=== PATIENT | female | born 1945 | race Caucasian/White ===

== ENCOUNTER 2019-06-04 20:24 | Emergency (ER) | payer MEDICARE, OTHER, SELFPAY ==
[2019-06-04 20:28] VITALS: BP 144/63; PULSE 82; PULSE 84; RESP 14; TEMP 36.6; O2SAT 91
--- NOTE | 2019-06-04 20:45 | ED.NAVMDI ---
HPI - Nausea/Vomiting/Diarrhea General Chief complaint: Unspecified Stated complaint: diarrhea Time Seen by Provider: 06/04/19 20:36 Source: patient and RN notes reviewed Mode of arrival: EMS Limitations: no limitations History of Present Illness HPI Narrative: Pt is a 73 y/o female who presents to the ED via EMS with c/o diarrhea and foul smelling stool starting earlier today. She notes that she developed diarrhea earlier this morning, and states that she noticed her stools have had an unusually foul smell. Pt notes that her stools have been watery. She states that she has scheduled an appointment with her PCP for tomorrow to discuss her symptoms. Pt currently denies any fever, chills, ABD pain, nausea, vomiting, or other symptoms. MD elicited complaint: diarrhea and other (Foul smelling stool) Onset (ago): day(s) (1) Description of diarrhea: watery Associated nausea: No Associated abdominal pain: No Associated symptoms: denies other symptoms Related Data Allergies Allergy/AdvReac Type Severity Reaction Status Date / Time acetaminophen Allergy Unknown Unknown Verified 06/04/19 20:38 levofloxacin Allergy Unknown Unknown Verified 06/04/19 20:38 oxycodone Allergy Unknown Unknown Verified 06/04/19 20:38 Penicillins Allergy Unknown Unknown Verified 06/04/19 20:38 Review of Systems Review of Systems: All systems reviewed & are unremarkable except as noted in HPI and below Constitutional: Constitutional: Denies chills and Denies fever(s) ENT: Denies dizziness, Denies ear discharge, Denies headache(s), Denies lip swelling, Denies epistaxis, Denies nasal congestion, Denies neck pain, Denies throat swelling and Denies tongue swelling Cardiovascular: Cardiovascular: Denies chest pain Respiratory: Respiratory: Denies chest congestion, Denies cough, Denies hemoptysis, Denies dyspnea and Denies dyspnea on exertion Gastrointestinal: Gastrointestinal: Denies abdominal pain, Reports diarrhea, Denies nausea, Denies vomiting and Reports other (foul smelling stool) PMFSH Past Medical History Medical History Anemia Dementia Depression Diabetes GI bleed Peripheral neuropathy Renal disease Sleep apnea Surgical History Surgical History No significant past surgical history Social History Social History Smoking status: Smoker, status unknown Substance use type: marijuana Gender identity (if verbalized by the patient): Female Exam Const: General: cooperative, healthy appearing, comfortable, no acute distress, well developed, alert and awake; No confusion Orientation/consciousness: oriented to person, oriented to place, oriented to time, patient oriented x3 and No confusion Limitations: no limitations HENMT: Head: normal to inspection, normocephalic and atraumatic Neck: Neck: normal visual inspection Chest: Chest palpation & inspection: normal inspection of the chest Resp: Effort & Inspection: normal respiratory effort, able to speak in complete sentences, no respiratory distress and not tachypneic Auscultation: clear to auscultation bilaterally, no crackles, no rales, no rhonchi and no wheezes Cardio: Rate: regular rate Rhythm: regular rhythm GI: Inspection: normal to inspection GI Palp: No abdominal tenderness, Yes Soft to palpation, No Tenderness to palpation present (GI), No Guarding due to palpation present (GI), No Rigid due to palpation and No Rebound tenderness present Auscultation: normal bowel sounds : General: Yes no CVA tenderness Back/Spine/Pelvis: Back: no CVA tenderness Skin: General skin exam: normal color, no rashes or lesions noted, elasticity normal and turgor normal Neuro: General: oriented to person, oriented to place, oriented to time, patient oriented x3, tone normal, moves all extremities, Normal light touch and pain sensation, no meningeal signs, no fo
[2019-06-04] MEDS: SODIUM CHLORIDE 0.9% IV 1,000 ML 999 ML IV CONT (20:55)
[2019-06-04 21:11] LABS: Basophils Percent Auto 0.1 % (0.2-1.2); Eosinophils Absolute Auto 0.1 K/mm3 (0-0.3); Eosinophils Percent Auto 1.2 % (0-4.4); Hematocrit 31.1 % (37.0-47.0); Hemoglobin 9.8 g/dL (12.0-15.0); Immature Granulocyte Absolute 0.02 K/mm3 (0.00-0.031); Immature Granulocyte Percent A 0.3 % (0-0.5); Lymphocytes Absolute Auto 3.19 K/mm3 (0.9-3.2); Lymphocytes Percent Auto 46.6 % (18.3-44.2); Mean Corpuscular HGB Conc 31.5 g/dl (32-36); Mean Corpuscular Hemoglobin 27.5 pg (26-34); Mean Corpuscular Volume 87.4 fl (80-100); Mean Platelet Volume 9.9 fl (7.4-10.4); Monocytes Absolute Auto 0.6 K/mm3 (0.1-0.6); Monocytes Percent Auto 9.2 % (2.6-8.5); Neutrophils Absolute Auto 2.9 K/mm3 (1.3-6.7); Neutrophils Percent Auto 42.6 % (45.5-73.1); Platelet Count Result 224 k/mm3 (150-375); Red Blood Count 3.56 M/mm3 (4.2-5.4); Red Cell Distribution Width 14.6 % (11.5-14.5); White Blood Count 6.8 K/mm3 (4.5-10.0)
[2019-06-04 21:27] LABS: Alanine Aminotransferase 11 U/L (4-35); Albumin Level 3.8 g/dL (3.5-5.1); Alkaline Phosphatase 95 U/L (38-126); Aspartate Amino Transferase 19 U/L (14-36); Bilirubin,Total 0.2 mg/dL (0.2-1.3); Blood Urea Nitrogen 24 mg/dL (7-17); Calcium 8.8 mg/dL (8.4-10.2); Carbon Dioxide 22 mmol/L (22-30); Chloride 106 mmol/L (98-107); Estimated CRCL calculation 34 ml/min; Estimated Glomerular Filt Rate 40; Glucose 49 mg/dL (65-105); Potassium 4.4 mmol/L (3.4-5.0); Sodium 138 mmol/L (137-145)
[2019-06-04] MEDS: DEXTROSE 50% 25 GM/50 ML SYRINGE IV PUSH (21:33)
--- NOTE | 2019-06-04 21:47 | PC.NURSE ---
lab called and stated that pts blood glucose was 49. Per Dr. Leon give D50 via IV and a turkey sandwich. Will continue to monitor
[2019-06-04 23:06] VITALS: BP 142/95; PULSE 89; RESP 16; O2SAT 100
[2019-06-04 23:06] LABS: Glucose Point of Care 60 (65-105)
--- NOTE | 2019-06-04 23:09 | PC.NURSE ---
report taken from leidy manzo at this time.
[2019-06-04 23:37] VITALS: BP 142/85; PULSE 88; RESP 16; O2SAT 100
[2019-06-04 23:39] LABS: Glucose Point of Care 212 (65-105)
[2019-06-05 01:00] VITALS: BP 137/88; PULSE 80; RESP 17; TEMP 36.2; O2SAT 98
--- NOTE | 2019-06-05 01:06 | PC.NURSE ---
Called [facility] at [phone] to transport patient. ETA = [phone] Johnson here at [phone]
[2019-06-05 08:14] LABS: Glucose Point of Care 186 (65-105)
== END 2019-06-05 01:00 | disposition home or self-care (01) ==
PROVIDERS: Emergency Provider Emergency Medicine
DX: K52.9 Noninfective gastroenteritis and colitis, unspecified (principal); E11.649 Type 2 diabetes mellitus with hypoglycemia without coma; F03.90 Unspecified dementia, unspecified severity, without behavioral disturbance, psychotic disturbance, mood disturbance, and anxiety; E11.42 Type 2 diabetes mellitus with diabetic polyneuropathy; G47.30 Sleep apnea, unspecified; N28.9 Disorder of kidney and ureter, unspecified
CPT/HCPCS: 36415; 80053; 82948; 85025; 96361; 96374; 99284; J7030

== ENCOUNTER 2019-09-29 14:38 | Inpatient (IN) | payer MEDICARE, OTHER, SELFPAY ==
--- NOTE | ~2019-09-29 | CT_ITS ---
EXAMINATION: CT brain wo con DATE: 09/29/2019 14:56 INDICATION: Confusion. TECHNIQUE: Computed tomography (CT) of the head was performed without intravenous contrast. The mA wa s adjusted according to patient size. Iterative reconstruction technique was employed. The dose-lengt h product was 605.33 mGy-cm. COMPARISON: None FINDINGS: There are scattered areas of low attenuation in the cerebral white matter. There are old in farcts in right parietal and occipital lobes. There is no intracranial hemorrhage, acute infarction, or abnormal intracranial mass lesion. The lateral and third ventricles are dilated out of proportion to the size of the sulci. There is mucosal thickening in right sphenoid sinus with thickening and scl erosis of the sinus ramon, consistent with chronic sinusitis. The mastoid air cells are normal. There are likely changes of ocular lens replacement surgeries. IMPRESSION: 1. Old infarcts in the right parietal and occipital lobes. 2. Extensive nonspecific cerebral white matter disease, which likely represents chronic small vessel ischemic disease. 3. Dilated lateral and third ventricles out of proportion to the size of the sulci. Correlate clinica lly for normal pressure hydrocephalus. 4. Chronic sinusitis. Reviewed, dictated and finalized at location A. IMPRESSION: 1. Old infarcts in the right parietal and occipital lobes. 2. Extensive nonspecific cerebral white matter disease, which likely represents chronic small vessel ischemic disease. 3. Dilated lateral and third ventricles out of proportion to the size of the sharma lci. Correlate clinically for normal pressure hydrocephalus. 4. Chronic sinusitis.
--- NOTE | ~2019-09-29 | XR_ITS ---
EXAMINATION: XR hand LT min 3V DATE: 09/29/2019 15:06 INDICATION: Left hand injury. TECHNIQUE: 3 views of left hand were obtained. COMPARISON: None. FINDINGS: Bone alignment is normal. No fracture. There is mild osteoarthritis of first carpometacarpa l joint, first and second metacarpophalangeal joints, and most of the interphalangeal joints. There i s severe osteoarthritis of second, third, and fourth distal interphalangeal joints. IMPRESSION: 1. Polyarticular osteoarthritis. Reviewed, dictated and finalized at location A.
--- NOTE | ~2019-09-29 | XR_ITS ---
EXAMINATION: XR chest 1V portable DATE: 09/29/2019 15:06 INDICATION: Altered mental status. TECHNIQUE: A single frontal view of the chest was obtained. COMPARISON: None. FINDINGS: The chest demonstrates clear lungs without pneumonia, pleural effusion, or pneumothorax. Th e heart size is normal. IMPRESSION: 1. No acute cardiopulmonary disease. Reviewed, dictated and finalized at location A.
--- NOTE | 2019-09-29 14:43 | ECG_ITS ---
Measurements Intervals [place] Rate: 67 P: 32 DE: 167 QRS: -25 QRSD: 85 T: 90 QT: 401 QTc: 425 Interpretive Statements SINUS RHYTHM LOW QRS VOLTAGE IN PRECORDIAL LEADS BORDERLINE T WAVE ABNORMALITY- HIGH LATERAL LEADS BASELINE ARTIFACT- I, II, III, AVL, AVF, V2 BORDERLINE ECG Electronically Signed On 09-29-2019 16:42:33 CDT by Denton Franks D.O.
--- NOTE | 2019-09-29 14:43 | ED.GENADULT ---
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 She appeared more confused than baseline. It's uncertain how long ago she fellor how she fell. She cannot provide additional history. She does not recall the incident. She denies any pain. Related Data Allergies Allergy/AdvReac Type Severity Reaction Status Date / Time acetaminophen Allergy Unknown Unknown Verified 09/29/19 15:12 levofloxacin Allergy Unknown Unknown Verified 09/29/19 15:12 oxycodone Allergy Unknown Unknown Verified 09/29/19 15:12 Penicillins Allergy Unknown Unknown Verified 09/29/19 15:12 Review of Systems Review of Systems: ROS unobtainable: Yes unobtainable due to mental status PMFSH Past Medical History Medical History Anemia Dementia Depression Diabetes GI bleed Peripheral neuropathy Renal disease Sleep apnea Surgical History Surgical History No significant past surgical history Social History Social History Smoking status: Smoker, status unknown Substance use type: marijuana Gender identity (if verbalized by the patient): Female Exam Const: General: no acute distress and well developed Orientation/consciousness: oriented to person, oriented to place, oriented to time and patient oriented x3 HENMT: Head: normocephalic Ears: external ears normal General nose exam: Normal external nose present Eyes: General: appearance normal, both eyes and all related structures Conjunctivae: conjunctivae normal Neck: Neck: normal visual inspection and full ROM Chest: Chest palpation & inspection: normal inspection of the chest and no tenderness Resp: Effort & Inspection: normal respiratory effort Auscultation: clear to auscultation bilaterally Cardio: Rate: regular rate Rhythm: regular rhythm GI: GI Palp: No abdominal tenderness and Yes Soft to palpation Skin: General skin exam: normal color and turgor normal Neuro: General: oriented to person and oriented to place Cognition (Neuro): normal cognition Motor exam (neuro): 5/5 motor strength present throughout Other: disoriented to time Extrem: General: normal to inspection, full ROM and no pedal edema Left upper extremity: hand ecchymosis Psych: Appearance: grossly normal Mental Status: mental status grossly normal Affect: normal affect Course Consultations Consultation #1: Discussed with Radha, who agrees to admit to Dr. Subramanian. Date: 09/29/19 Time: 16:08 Vital Signs Vital signs: Vital Signs Temperature 37.0 C 09/29/19 14:58 Pulse Rate 69 09/29/19 14:58 Respiratory Rate 15 09/29/19 14:58 Blood Pressure 109/56 L 09/29/19 14:58 Pulse Oximetry 100 09/29/19 14:58 Temperature 37.0 C 09/29/19 14:58 Pulse Rate 78 09/29/19 18:54 Respiratory Rate 15 09/29/19 18:54 Blood Pressure 138/60 09/29/19 18:54 Pulse Oximetry 100 09/29/19 18:54 Medical Decision Making Vital Signs Vital Signs: Vital Signs Temperature 37.0 C 09/29/19 14:58 Pulse Rate 69 09/29/19 14:58 Respiratory Rate 15 09/29/19 14:58 Blood Pressure 109/56 L 09/29/19 14:58 Pulse Oximetry 100 09/29/19 14:58 Temperature 37.0 C 09/29/19 14:58 Pulse Rate 78 09/29/19 18:54 Respiratory Rate 15 09/29/19 18:54 Blood Pressure 138/60 09/29/19 18:54 Pulse Oximetry 100 09/29/19 18:54 Lab Data Result diagrams: 09/29/19 15:22 09/29/19 15:22 Labs: Lab Results 09/29/19 09/29/19 09/29/19 Range/Units 14:46 15:22 15:22 WBC 7.6 (4.5-10.0) K/mm3 RBC 3.39 L (4.2-5.4) M/mm3 Hgb 10.2 L (12.0-15.0) g/dL Hct 31.6 L (37.0-47.0) % MCV 93.2 (80-100) fl MCH 30.1 (26-34) pg MCHC
[2019-09-29 14:49] LABS: Glucose Point of Care 119 (65-105)
[2019-09-29 14:58] VITALS: BP 109/56; PULSE 69; RESP 15; TEMP 37; O2SAT 100
[2019-09-29 15:30] LABS: Basophils Percent Auto 0.1 % (0.2-1.2); Eosinophils Absolute Auto 0.1 K/mm3 (0-0.3); Eosinophils Percent Auto 0.7 % (0-4.4); Hematocrit 31.6 % (37.0-47.0); Hemoglobin 10.2 g/dL (12.0-15.0); Immature Granulocyte Absolute 0.04 K/mm3 (0.00-0.031); Immature Granulocyte Percent A 0.5 % (0-0.5); Lymphocytes Absolute Auto 1.06 K/mm3 (0.9-3.2); Lymphocytes Percent Auto 13.9 % (18.3-44.2); Mean Corpuscular HGB Conc 32.3 g/dl (32-36); Mean Corpuscular Hemoglobin 30.1 pg (26-34); Mean Corpuscular Volume 93.2 fl (80-100); Mean Platelet Volume 9.1 fl (7.4-10.4); Monocytes Absolute Auto 0.5 K/mm3 (0.1-0.6); Monocytes Percent Auto 6.7 % (2.6-8.5); Neutrophils Percent Auto 78.1 % (45.5-73.1); Platelet Count Result 198 k/mm3 (150-375); Red Blood Count 3.39 M/mm3 (4.2-5.4); Red Cell Distribution Width 14.4 % (11.5-14.5); White Blood Count 7.6 K/mm3 (4.5-10.0)
[2019-09-29 15:36] LABS: Add Urine Microscopic? YES; Appearance Urine Cloudy (Clear); Bacteria Urine Trace /hpf; Bilirubin Urine Negative (Negative); Color Urine Yellow (Yellow); Glucose Urine UA Negative (Negative); Ketones Urine Negative (Negative); Leukocyte Esterase Ur 3+ LEU/UL (Negative); Mucus Urine Rare /lpf; Nitrate Urine Negative (Negative); Protein Urine 1+ mg/dL (Negative); Specific Grav Ur 1.014 (1.001-1.035); Squamous Epithelial Cell Urine Rare /hpf (Few); Urobilinogen Urine Negative mg/dL (<2.0); WBC Clumps Urine Present /HPF; WBC Urine >75 /hpf
[2019-09-29 15:37] LABS: Blood Urine Negative (Negative)
[2019-09-29 15:40] LABS: Alanine Aminotransferase 11 U/L (4-35); Albumin Level 3.9 g/dL (3.5-5.1); Alkaline Phosphatase 81 U/L (38-126); Aspartate Amino Transferase 21 U/L (14-36); Bilirubin,Total 0.1 mg/dL (0.2-1.3); Blood Urea Nitrogen 32 mg/dL (7-17); Calcium 8.7 mg/dL (8.4-10.2); Carbon Dioxide 26 mmol/L (22-30); Chloride 106 mmol/L (98-107); Creatine Kinase 230 U/L (30-135); Estimated CRCL calculation 30 ml/min; Estimated Glomerular Filt Rate 37; Glucose 101 mg/dL (65-105); Potassium 3.7 mmol/L (3.4-5.0); Sodium 138 mmol/L (137-145)
[2019-09-29 15:52] LABS: Troponin I < 0.012 ng/mL (0.000-0.034)
[2019-09-29] MEDS: SODIUM CHLORIDE 0.9% IV 1,000 ML 999 ML IV CONT (16:17)
[2019-09-29 16:25] VITALS: BP 132/83; PULSE 76; RESP 12; O2SAT 100
--- NOTE | 2019-09-29 17:42 | PC.NURSE ---
[facility] called in regards to pt. Informed them that pt is being admitted.
[2019-09-29 18:11] VITALS: BP 118/78; PULSE 79; RESP 13; O2SAT 100
--- NOTE | 2019-09-29 18:33 | PC.NURSE ---
Called to give report and was told that room was not clean. Staff will call when room is clean
[2019-09-29 18:54] VITALS: BP 138/60; PULSE 78; RESP 15; O2SAT 100
[2019-09-29 19:33] VITALS: BP 160/73; PULSE 78; RESP 20; O2SAT 99
[2019-09-29 20:21] VITALS: BMI 24.3
[2019-09-29 20:22] VITALS: BP 166/81; PULSE 80; RESP 14; TEMP 36.6; O2SAT 100
[2019-09-29 22:07] LABS: Troponin I < 0.012 ng/mL (0.000-0.034)
[2019-09-29 22:44] LABS: Glucose Point of Care 219 (65-105)
--- NOTE | 2019-09-29 22:45 | PM.IMHP ---
H&P: HPI History of Present Illness Chief complaint: Altered mental status, fall. 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 for evaluation of altered mental status after a fall. She has severe memory loss and is not able to provide an accurate history, and as such majority of the following is obtained via a review of her electronic medical records as well as discussions with nursing staff. At baseline she is typically alert and oriented x2, however not long prior to arrival she was found by staff on the floor next to her bed and she was more confused than usual. At that time her random glucose was around 40 and she was given Ensure by staff as well as D10 per EMS with a glucose 101 on arrival to the emergency department. She was found to have bruising to the dorsum of the left hand with negative x-rays. A head CT showed findings of old stroke as well as dilated lateral and 3rd ventricles but no acute findings. Urine is concerning for UTI and she is being admitted in this setting. At the time my evaluation she is alert only to herself but she is very pleasant and talkative. She believes that she is at her own home in [facility] and could not provide me with any accurate answers. She reports no problems and denies every question I ask of her with regards to review of systems. Specifically she denies headache, auditory and visual changes, focal weakness, paresthesias, injuries, chest pain, shortness of breath, nausea, vomiting, diarrhea, and dysuria. Review of Systems Review of Systems: Narrative: Unable to be obtained accurately given her dementia. [facility] Past Medical History Medical History (Updated 09/29/19 @ 23:41 by Radha Graves PA-C) Anemia With history of blood transfusion with GI bleed in December 2018. Cerebrovascular accident Old infarcts in the right parietal and occipital lobe noted on brain CT on 09/29/2019. Chronic kidney disease, stage 3 Baseline creatinine is around 1.4 to 1.60. Dementia Depression Diabetic peripheral neuropathy GI bleed (~12/2018) Secondary to large duodenal ulcer. Insulin dependent type 2 diabetes mellitus Obstructive sleep apnea Patient states she no longer uses a CPAP. Surgical History Surgical History (Updated 09/29/19 @ 23:32 by Radha Graves PA-C) History of cataract extraction Family History Family History Father Acute myocardial infarction Hypertension Mother Acute myocardial infarction Sibling Congestive heart failure Hypertension Social History Social History (Updated 09/29/19 @ 23:33 by Radha Graves PA-C) Social History: The patient is a resident at [facility]. She never and has no children. Previously worked with [employer]. Her sister, Brooke, is her healthcare power of seafood specialist and she is listed as a full code. She is a former smoker but cannot provide me any further specifics. She smokes marijuana on occasion. She denies alcohol use. Spiritual care concerns: No Meds Home Medications and Allergies Home Medications Medication Instructions Recorded Confirmed Type aspirin 81 mg PO DAILY 09/29/19 09/29/19 History insulin aspart U-100 [Novolog 1 sliding scale dose SUBCUT 09/29/19 09/29/19 History U-100 Insulin aspart] USEASDIRECTD insulin glargine 27 unit SUBCUT HS 09/29/19 09/29/19 History mirtazapine 7.5 mg PO HS 09/29/19 09/29/19 History omeprazole 20 mg PO DAILY 09/29/19 09/29/19 History Allergies Allergy/AdvReac Type Severity Reaction Status Date / Time acetaminophen Allergy Unknown Unknown Verified 09/29/19 15:12 levofloxacin Allergy Unknown Unknown Lillian
[2019-09-29 23:30] LABS: Glucose Point of Care 302 (65-105)
[2019-09-29] MEDS: INSULIN GLARGINE (*BKC) 100 UNITS/ML 10 UNITS SUB-Q (23:59)
[2019-09-30 06:10] VITALS: BP 149/68; PULSE 78; RESP 12; TEMP 36.4; O2SAT 100
[2019-09-30 06:17] LABS: Hematocrit 30.1 % (37.0-47.0); Hemoglobin 9.8 g/dL (12.0-15.0); Mean Corpuscular HGB Conc 32.6 g/dl (32-36); Mean Corpuscular Hemoglobin 30.2 pg (26-34); Mean Corpuscular Volume 92.6 fl (80-100); Mean Platelet Volume 9.6 fl (7.4-10.4); Platelet Count Result 189 k/mm3 (150-375); Red Blood Count 3.25 M/mm3 (4.2-5.4)
[2019-09-30 07:40] LABS: Alanine Aminotransferase 10 U/L (4-35); Albumin Level 3.4 g/dL (3.5-5.1); Alkaline Phosphatase 59 U/L (38-126); Aspartate Amino Transferase 20 U/L (14-36); Bilirubin,Total 0.1 mg/dL (0.2-1.3); Blood Urea Nitrogen 29 mg/dL (7-17); Calcium 8.5 mg/dL (8.4-10.2); Carbon Dioxide 26 mmol/L (22-30); Chloride 110 mmol/L (98-107); Estimated CRCL calculation 30 ml/min; Estimated Glomerular Filt Rate 40; Glucose 46 mg/dL (65-105); Potassium 4.1 mmol/L (3.4-5.0); Sodium 139 mmol/L (137-145)
[2019-09-30 07:41] LABS: Thyroid Stimulating Hormone Reflex 0.979 uIU/mL (0.465-4.68)
[2019-09-30] MEDS: GLUCOSE ORAL GEL 15 GM OF GLUCSE IN 37.5 GM TUBE PO (07:44)
[2019-09-30 08:03] LABS: Hemoglobin A1C 7.2 % (<5.7)
[2019-09-30] MEDS: ASPIRIN 81 MG ENTERIC TABLET PO (08:12)
[2019-09-30] MEDS: PANTOPRAZOLE SOD SESQUIHYDRATE 20 MG TAB PO (08:12)
[2019-09-30 08:13] LABS: Glucose Point of Care 102 (65-105)
[2019-09-30] MEDS: INSULIN ASPART (*BKC) 100 UNITS/ML SUB-Q (11:30)
[2019-09-30 11:52] LABS: Glucose Point of Care 205 (65-105)
--- NOTE | 2019-09-30 12:00 | PM.IMPN ---
Progress Note: A&P Assessment and Plan (1) Insulin dependent type 2 diabetes mellitus: Code(s): E11.9 - Type 2 diabetes mellitus without complications; Z79.4 - [facility] (current) use of insulin Status: Acute Assessment and Plan: She was noted to be hypoglycemic at CT at approximately 40. This may have been the precipitating event for her fall. Glucose remained well controlled yesterday, however this morning her fasting blood sugar was 46. She was given 15 g of glucose and her blood sugar improved. She has been eating well today and ate her entire breakfast as well as most of her lunch. Most recent A1c is 7.2 She is on 27 units of Lantus nightly which will need to be decreased. Will give 10 units of Lantus tonight Continue sliding scale insulin, Accu-Cheks, and hypoglycemic protocol. (2) UTI (urinary tract infection): Code(s): N39.0 - Urinary tract infection, site not specified Status: Acute Assessment and Plan: Her urinalysis is suspicious for UTI with 3+ leukocyte esterase and >75 WBC. She is afebrile without leukocytosis. Continue empiric ceftriaxone Await results of urine culture and tailor antibiotics appropriately. (3) Altered mental status: Qualifiers: Altered mental status type: unspecified Qualified Code(s): R41.82 - Altered mental status, unspecified Code(s): R41.82 - Altered mental status, unspecified Status: Acute Assessment and Plan: Patient is alert and oriented x2 at my evaluation. She appears to be at her baseline per review of prior records. She was noted to have altered mental status at [facility] after a fall. Any acute changes may have been related to hypoglycemia or possible urinary tract infection. Continue to monitor mental status (4) Dementia: Code(s): F03.90 - Unspecified dementia without behavioral disturbance Status: Acute Assessment and Plan: She has obviously notable short-term memory loss. She does not appear to be on any medications for dementia. Her brain CT demonstrated possible normal pressure hydrocephalus. (5) Chronic kidney disease, stage 3: Code(s): N18.3 - Chronic kidney disease, stage 3 (moderate) Status: Acute Assessment and Plan: Her BUN and creatinine are consistent with baseline. Continue to monitor renal function. Renally dose medications and avoid nephrotoxic agents. (6) Contusion of left hand: Code(s): S60.222A - Contusion of left hand, initial encounter Status: Acute Assessment and Plan: Secondary to fall. X-ray was performed which is negative for fracture. She does have some osteoarthritis in the hand, however. She denies any pain in her hand today. (7) Fall: Qualifiers: Encounter type: initial encounter Qualified Code(s): W19.XXXA - Unspecified fall, initial encounter Code(s): W19.XXXA - Unspecified fall, initial encounter Status: Acute Assessment and Plan: Fall is believed to be due to hypoglycemia. Continue to monitor on telemetry Continue fall precautions Subjective Date/time seen: 09/30/19 12:00 Interval history: Date of service: 09/30/2019 She reports that she is feeling well today. She denies any acute pain. She reports that she feels in her usual state of health. She is eating well. She ate all of her breakfast and lunch today. She denies dysuria or hematuria. She is wearing depends and it appears that she is incontinent. She denies flank pain or back pain. She denies abdominal pain or cramping, nausea, vomiting, fever, or chills. She denies sore throat, cough, shortness of breath, chest pain. She reports she slept well last night. She is alert and oriented to herself and place, but could not tell me the date or president. Per conversation with nursing staff, her level of consciousness is somewhat fluctuant and she is not always oriented to place. She mcdonough
[2019-09-30 14:00] VITALS: BP 132/68; PULSE 63; RESP 18; TEMP 36.4; O2SAT 100
[2019-09-30 16:37] LABS: Glucose Point of Care 98 (65-105)
[2019-09-30 21:06] LABS: Glucose Point of Care 96 (65-105)
[2019-09-30 21:18] VITALS: BP 157/63; PULSE 67; RESP 14; TEMP 36.9; O2SAT 100
[2019-09-30] MEDS: MIRTAZAPINE 7.5 MG TABLET PO (23:14)
[2019-10-01 05:50] VITALS: BP 146/68; PULSE 64; RESP 16; TEMP 36.9; O2SAT 100
[2019-10-01 06:30] LABS: Eosinophils Absolute Auto 0.1 K/mm3 (0-0.3); Eosinophils Percent Auto 2.1 % (0-4.4); Hematocrit 32.2 % (37.0-47.0); Hemoglobin 10.6 g/dL (12.0-15.0); Immature Granulocyte Absolute 0.02 K/mm3 (0.00-0.031); Immature Granulocyte Percent A 0.3 % (0-0.5); Lymphocytes Absolute Auto 2.01 K/mm3 (0.9-3.2); Mean Corpuscular HGB Conc 32.9 g/dl (32-36); Mean Corpuscular Volume 91.2 fl (80-100); Mean Platelet Volume 9.4 fl (7.4-10.4); Monocytes Absolute Auto 0.4 K/mm3 (0.1-0.6); Monocytes Percent Auto 7.1 % (2.6-8.5); Neutrophils Absolute Auto 3.2 K/mm3 (1.3-6.7); Neutrophils Percent Auto 55.5 % (45.5-73.1); Platelet Count Result 201 k/mm3 (150-375); Red Blood Count 3.53 M/mm3 (4.2-5.4); White Blood Count 5.8 K/mm3 (4.5-10.0)
[2019-10-01 06:52] LABS: Alanine Aminotransferase 10 U/L (4-35); Albumin Level 3.7 g/dL (3.5-5.1); Alkaline Phosphatase 66 U/L (38-126); Aspartate Amino Transferase 20 U/L (14-36); Bilirubin,Total 0.2 mg/dL (0.2-1.3); Blood Urea Nitrogen 26 mg/dL (7-17); Calcium 8.9 mg/dL (8.4-10.2); Carbon Dioxide 26 mmol/L (22-30); Chloride 107 mmol/L (98-107); Estimated CRCL calculation 28 ml/min; Estimated Glomerular Filt Rate 37; Glucose 84 mg/dL (65-105); Potassium 4.2 mmol/L (3.4-5.0); Sodium 136 mmol/L (137-145)
[2019-10-01 07:56] LABS: Glucose Point of Care 65 (65-105)
[2019-10-01] MEDS: PANTOPRAZOLE SOD SESQUIHYDRATE 20 MG TAB PO (08:08)
[2019-10-01] MEDS: ASPIRIN 81 MG ENTERIC TABLET PO (08:08)
--- NOTE | 2019-10-01 12:06 | PM.IMPN ---
Progress Note: A&P Assessment and Plan (1) Insulin dependent type 2 diabetes mellitus: Code(s): E11.9 - Type 2 diabetes mellitus without complications; Z79.4 - [facility] ([facility] use of insulin Status: Acute Assessment and Plan: The patient was hypoglycemic with a blood sugar of 40 at the assisted. This may have been the precipitating event for her fall. She had hypoglycemia on her AM labs 09/29 at 46 so her lantus was held overnight. A1C was 7.2 09/30/19. Blood sugar control is adequate today. Plan to continue sliding scale insulin, Accu-Cheks ACHS, and hypoglycemia protocol. Will continue to monitor closely. She is eating well today. Will continue to hold lantus for now and monitor blood sugars closely. (2) UTI (urinary tract infection): Qualifiers: Urinary tract infection type: site unspecified Hematuria presence: without hematuria Qualified Code(s): N39.0 - Urinary tract infection, site not specified Code(s): N39.0 - Urinary tract infection, site not specified Status: Ruled-out Assessment and Plan: UA was suspicious for UTI with 3+ leukocyte esterase and >75 WBC. She was treated empirically with IV ceftriaxone. Final urine culture was negative today so antibiotics were discontinued. (3) Altered mental status: Qualifiers: Altered mental status type: unspecified Qualified Code(s): R41.82 - Altered mental status, unspecified Code(s): R41.82 - Altered mental status, unspecified Status: Acute Assessment and Plan: Patient is alert and oriented x2 and appears to be at her baseline. Neurology has been consulted for a further opinion regarding possible normal pressure hydrocephalus as her head CT revealed dilated lateral and third ventricles out of proportion to the size of the sulci. Plan to monitor closely and await further neurology recommendations. (4) Dementia: Qualifiers: Dementia type: unspecified type Dementia behavioral disturbance: without behavioral disturbance Qualified Code(s): F03.90 - Unspecified dementia without behavioral disturbance Code(s): F03.90 - Unspecified dementia without behavioral disturbance Status: Acute Assessment and Plan: She has obviously notable short-term memory loss. She does not appear to be on any medications for dementia. Her brain CT demonstrated possible normal pressure hydrocephalus. She does wear depends and appears incontinent. She also had a fall. Neurology has been consulted for further recommendations which are greatly appreciated. (5) Chronic kidney disease, stage 3: Code(s): N18.3 - Chronic kidney disease, stage 3 (moderate) Status: Chronic Assessment and Plan: Chronic. BUN and creatinine are consistent with her baseline labs. Plan to continue to monitor renal function, renally dose medications, and avoid nephrotoxic agents. (6) Contusion of left hand: Qualifiers: Encounter type: sequela Qualified Code(s): S60.222S - Contusion of left hand, sequela Code(s): S60.222A - Contusion of left hand, initial encounter Status: Acute Assessment and Plan: Secondary to fall. X-ray was performed which is negative for fracture. She does have some osteoarthritis in the hand. She is not having any pain and ecchymosis is stable. (7) Fall: Qualifiers: Encounter type: initial encounter Qualified Code(s): W19.XXXA - Unspecified fall, initial encounter Code(s): W19.XXXA - Unspecified fall, initial encounter Status: Acute Assessment and Plan: Fall is believed to be due to hypoglycemia. She also has evidence of possible normal pressure hydrocephalus on CT brain. Neurology has been consulted. Plan to continue to monitor on telemetry and continue fall precautions. Will order PT/OT to improve strength and promote independence. Time Spent With Patient Time with patient: 15 - 25 min
[2019-10-01 12:47] LABS: Glucose Point of Care 132 (65-105)
--- NOTE | 2019-10-01 13:20 | PC.NURSE ---
Spoke at length with patients family member(POA) regarding spinal tap. Family has decided at this time that they do not want to proceed with the procedure. Dr. Calhoun is aware.
[2019-10-01 14:00] VITALS: BP 152/70; PULSE 69; RESP 16; TEMP 37.2; O2SAT 100
[2019-10-01 14:02] LABS: SARS-CoV-2 RNA PCR Negative
[2019-10-01 16:31] LABS: Glucose Point of Care 297 (65-105)
[2019-10-01] MEDS: INSULIN ASPART (*BKC) 100 UNITS/ML SUB-Q (16:54)
--- NOTE | 2019-10-01 17:40 | CONS_ITS ---
DATE OF CONSULTATION: 09/30/2019 HISTORY OF PRESENT ILLNESS: A 73-year-old has been admitted to the hospital subsequent to a fall with a change in mental status with ongoing history of: 1. Dementia. 2. 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 3. GERD. 4. History of duodenal ulcer with GI bleed in December of 2018. 5. History of the old stroke, documented in the past. The patient was sent to the emergency room from the [facility] for the complaint of change in the mental status with underlying significant memory loss. On arrival to the ER, her blood sugar was 101, though at the retirement, it was documented at 40. CT scan revealed old stroke with dilated lateral and third ventricle, but no acute finding. UA was abnormal. The patient has a history of: 1. Anemia. 2. CVA in the past, documented by the right parietal and occipital lobe infarct. 3. Chronic kidney disease, stage 3. 4. Dementia. 5. Depression. 6. Diabetic peripheral neuropathy. 7. Insulin-dependent diabetes mellitus. 8. Obstructive sleep apnea. 9. She has undergone cataract extraction. MEDICATIONS: She has been takin. Aspirin. 2. Insulin. 3. Mirtazapine. 4. Omeprazole. ALLERGIES: SHE IS ALLERGIC TO TYLENOL, LEVOFLOXACIN, OXYCODONE, AND PENICILLIN. PHYSICAL EXAMINATION: VITAL SIGNS: Evaluation up until now revealed her to be afebrile with pulse 69, respiration 15, blood pressure 109/56, pulse ox 100%. GENERAL: Examination revealed her to be awake, alert, cooperative, in no obvious acute distress. HEENT: Head normocephalic with no cranial bruit. Ear, nose, throat examination normal. NECK: Supple with no cervical bruit. No thyromegaly. No lymphadenopathy. HEART: Regular with no murmur. LUNGS: Clear. ABDOMEN: Soft. NEUROLOGICAL: She was awake, alert. She was oriented to her name. She was unable to go any further. Pupils were round and regular. Martinez of vision full. Extraocular movements full. Face symmetrical. Tongue midline. Uvula midline. Motor examination reveals symmetrical strength in upper and lower extremities. Plantar responses were downgoing. LABORATORY DATA: Investigation up until now revealed CBC without leukocytosis, hemoglobin 10.2, platelet count 198. Creatinine 1.4, glucose 101. Basic metabolic panel normal with creatinine 1.4. Troponin less than 0.012. CK total 230. Hepatic enzymes normal. UA with 1+ protein, otherwise negative. CT scan documented old infarct in the right parietal and occipital lobe with nonspecific extensive white matter disease with chronic small-vessel ischemic changes along with dilated lateral and third ventricles out of proportion of size of the sulci, raising the possibility of normal-pressure hydrocephalus. Hand x-ray with polyarticular osteoarthritis. The patient does have underlying dementia. I will obtain the family consent for the spinal tap and see if we can remove the 30 cc of the fluid and evaluate her further. AMEYA YA M.D. ROLLER LEVELER ROLLER LEVELER D I MT: [place]
[2019-10-01 20:00] VITALS: PULSE 67; RESP 16; O2SAT 99
[2019-10-01 20:29] LABS: Glucose Point of Care 204 (65-105)
[2019-10-01 20:40] VITALS: BP 138/70; PULSE 67; RESP 16; TEMP 36.3; O2SAT 99
[2019-10-01] MEDS: MIRTAZAPINE 7.5 MG TABLET PO (22:05)
[2019-10-02 04:39] VITALS: BP 150/58; PULSE 65; RESP 14; TEMP 36.7; O2SAT 99
[2019-10-02 06:23] LABS: Hemoglobin 10.3 g/dL (12.0-15.0); Mean Corpuscular HGB Conc 32.2 g/dl (32-36); Mean Corpuscular Hemoglobin 29.8 pg (26-34); Mean Corpuscular Volume 92.5 fl (80-100); Mean Platelet Volume 9.6 fl (7.4-10.4); Platelet Count Result 194 k/mm3 (150-375); Red Blood Count 3.46 M/mm3 (4.2-5.4); Red Cell Distribution Width 13.9 % (11.5-14.5); White Blood Count 4.6 K/mm3 (4.5-10.0)
[2019-10-02 06:42] LABS: Blood Urea Nitrogen 30 mg/dL (7-17); Calcium 8.9 mg/dL (8.4-10.2); Carbon Dioxide 29 mmol/L (22-30); Chloride 106 mmol/L (98-107); Estimated CRCL calculation 28 ml/min; Estimated Glomerular Filt Rate 37; Glucose 138 mg/dL (65-105); Magnesium 2.2 mg/dL (1.6-2.3); Potassium 4.1 mmol/L (3.4-5.0); Sodium 137 mmol/L (137-145)
[2019-10-02 08:08] LABS: Glucose Point of Care 131 (65-105)
[2019-10-02] MEDS: ASPIRIN 81 MG ENTERIC TABLET PO (09:22)
[2019-10-02] MEDS: PANTOPRAZOLE SOD SESQUIHYDRATE 20 MG TAB PO (09:22)
[2019-10-02 11:35] LABS: Glucose Point of Care 183 (65-105)
[2019-10-02 11:35] LABS: Cholesterol 171 mg/dL (0-200); HDL Direct 46 mg/dL; Triglycerides 203 mg/dL (<150)
[2019-10-02 11:46] LABS: LDL Cholesterol Direct 90 mg/dL
--- NOTE | 2019-10-02 12:33 | PM.DS ---
DS: Admitting Diagnosis Admitting Diagnosis Admitting Diagnosis: Altered mental status, unspecified DS: Discharge Diagnosis Discharge Diagnosis (1) Insulin dependent type 2 diabetes mellitus: Code(s): E11.9 - Type 2 diabetes mellitus without complications; Z79.4 - penitentiary (current) use of insulin Status: Acute (2) UTI (urinary tract infection): Qualifiers: Urinary tract infection type: site unspecified Hematuria presence: without hematuria Qualified Code(s): N39.0 - Urinary tract infection, site not specified Code(s): N39.0 - Urinary tract infection, site not specified Status: Ruled-out (3) Altered mental status: Qualifiers: Altered mental status type: unspecified Qualified Code(s): R41.82 - Altered mental status, unspecified Code(s): R41.82 - Altered mental status, unspecified Status: Acute (4) Dementia: Qualifiers: Dementia type: unspecified type Dementia behavioral disturbance: without behavioral disturbance Qualified Code(s): F03.90 - Unspecified dementia without behavioral disturbance Code(s): F03.90 - Unspecified dementia without behavioral disturbance Status: Acute (5) Chronic kidney disease, stage 3: Code(s): N18.3 - Chronic kidney disease, stage 3 (moderate) Status: Chronic (6) Contusion of left hand: Qualifiers: Encounter type: sequela Qualified Code(s): S60.222S - Contusion of left hand, sequela Code(s): S60.222A - Contusion of left hand, initial encounter Status: Acute (7) Fall: Qualifiers: Encounter type: initial encounter Qualified Code(s): W19.XXXA - Unspecified fall, initial encounter Code(s): W19.XXXA - Unspecified fall, initial encounter Status: Acute (8) History of CVA (cerebrovascular accident): Code(s): Z86.73 - Personal history of transient ischemic attack (TIA), and cerebral infarction without residual deficits Status: Acute DS: Summary Hospital Course Reason for hospitalization: Fall, altered mental status Hospital Course: Mrs. Lopez is a 73 y.o. female with dementia, insulin dependent type 2 diabetes mellitus complicated by peripheral neuropathy, GERD with hx of duodenal ulcer and GI bleed 12/2018, and hx of old CVA on CT brain who presented to the emergency department via EMS from [facility] due to altered mental status after a fall. prison staff reported that she was found by staff on the floor next to her bed and was more confused than usual. Her random glucose was 40 so she was given ensure and D10 per EMS. She has severe dementia at baseline and is a poor historian but is alert and oriented x2 at baseline. Head CT was performed and revealed old infarcts in the right parietal and occipital lobes, nonspecific cerebral white matter disease likely customer operations representative of small vessel ischemic disease, and dilated lateral and third ventricles out of proportion to sulci. Hand xray was performed as she had bruising to the dorsum of her right hand from her fall and revealed polyarticular arthritis but was negative for fracture. CXR had no evidence of acute cardiopulmonary disease. UA was suspicious for UTI and IV ceftriaxone was initiated. She was admitted to the hospitalist service. Lantus was held due to hypoglycemia and resumed at a lower dose. Her blood sugars were reasonably controlled on the carb restricted diet but may need adjustments as she resumes her home diet. HbA1C was 7.2 09/30/19. Final urine cultures were negative for growth so antibiotics were discontinued. Neurology was consulted due to possible normal pressure hydrocephalus on CT brain in the setting of her dementia and recommended a lumbar tap test. The patient's sister and POA declined lumbar tap and did not want to pursue further testing or intervention for possible normal pressure hydrocephalus. PT/OT were consulted and the patient did well and was felt
== END 2019-10-02 15:11 | DRG 639 ==
LOC: ANHED 16:18 → ANH3MED 17:33
PROVIDERS: Physician Assistant; Admitting Provider Internal Medicine; Emergency Provider Emergency Medicine; PCP Family Medicine; Visit Provider Internal Medicine
DX: E11.649 Type 2 diabetes mellitus with hypoglycemia without coma (principal); R41.82 Altered mental status, unspecified; F03.90 Unspecified dementia, unspecified severity, without behavioral disturbance, psychotic disturbance, mood disturbance, and anxiety; E11.42 Type 2 diabetes mellitus with diabetic polyneuropathy; E11.22 Type 2 diabetes mellitus with diabetic chronic kidney disease; N18.3 Chronic kidney disease, stage 3 (moderate); S60.222A Contusion of left hand, initial encounter; W19.XXXA Unspecified fall, initial encounter; M19.042 Primary osteoarthritis, left hand; K21.9 Gastro-esophageal reflux disease without esophagitis; G47.33 Obstructive sleep apnea (adult) (pediatric); F32.9 Major depressive disorder, single episode, unspecified; Z11.59 Encounter for screening for other viral diseases; Z79.4 Long term (current) use of insulin; Z79.82 Long term (current) use of aspirin; Z86.73 Personal history of transient ischemic attack (TIA), and cerebral infarction without residual deficits; Z87.11 Personal history of peptic ulcer disease; Z87.891 Personal history of nicotine dependence; Z98.49 Cataract extraction status, unspecified eye
CPT/HCPCS: 36415; 51701; 70450; 71045; 73130; 80048; 80053; 80061; 81001; 82550; 83036; 83735; 84443; 84484; 85025; 85027; 87086; 87635; 93005; 96361; 96365; 96366; 97161; 97165; 99285; A9270; C9803; G0378; J0696; J1815; J7030; U0003

== ENCOUNTER 2020-09-28 08:46 | Emergency (ER) | payer MEDICARE, OTHER, SELFPAY ==
[2020-09-28] VITALS (26 sets, daily range): BP systolic 108–163; BP diastolic 60–86; PULSE 68–90; RESP 11–22; TEMP 37.1; O2SAT 97–100
--- NOTE | 2020-09-28 09:05 | ECG_ITS ---
Measurements Intervals [place] Rate: 79 P: 83 [place]: 166 QRS: -6 QRSD: 88 T: 63 QT: 385 QTc: 442 Interpretive Statements SINUS RHYTHM ATRIAL PREMATURE COMPLEX BORDERLINE R WAVE PROGRESSION, ANTERIOR LEADS BASELINE ARTIFACT- II, III, AVR, AVL, AVF, V1-V6 BORDERLINE ECG Electronically Signed On 09-28-2020 9:12:10 CDT by Denton Franks D.O.
[2020-09-28 09:09] LABS: Glucose Point of Care 98 mg/dl (65-105)
--- NOTE | 2020-09-28 09:15 | ED.GENADULT ---
HPI - General Adult General Chief complaint: Recheck/Abnormal Lab/Rx Stated complaint: LOW BS Time Seen by Provider: 09/28/20 08:50 History of Present Illness HPI narrative: Patient is a 74-year-old female who presents ER with altered mental status. Patient found to be hypoglycemic and received D10 in route. Patient is pleasantly demented at this time and is experiencing no discomfort. She has no complaints. Patient does take insulin. She is unsure when she last ate. Patient's original Accu-Chek was 25. Related Data Home Medications Medication Instructions Recorded Confirmed aspirin 81 mg PO DAILY 09/29/19 09/29/19 insulin aspart U-100 [Novolog 1 sliding scale dose SUBCUT 09/29/19 09/29/19 U-100 Insulin aspart] USEASDIRECTD mirtazapine 7.5 mg PO HS 09/29/19 09/29/19 omeprazole 20 mg PO DAILY 09/29/19 09/29/19 Allergies Allergy/AdvReac Type Severity Reaction Status Date / Time levofloxacin Allergy Unknown Unknown Verified 09/28/20 09:02 oxycodone Allergy Unknown Unknown Verified 09/28/20 09:02 Penicillins Allergy Unknown Unknown Verified 09/28/20 09:02 Review of Systems Review of Systems: ROS unobtainable: Yes unobtainable due to mental status PMFSH Past Medical History Medical History (Updated 09/28/20 @ 12:12 by Rob Jones MD) Anemia With history of blood transfusion with GI bleed in December 2018. Cerebrovascular accident Old infarcts in the right parietal and occipital lobe noted on brain CT on 09/29/2019. Chronic kidney disease, stage 3 Baseline creatinine is around 1.4 to 1.60. Dementia Depression Diabetic peripheral neuropathy GI bleed (~12/2018) Secondary to large duodenal ulcer. Insulin dependent type 2 diabetes mellitus Obstructive sleep apnea Patient states she no longer uses a CPAP. Surgical History Surgical History (Updated 09/29/19 @ 23:32 by Radha Graves PA-C) History of cataract extraction Family History Family History Father Acute myocardial infarction Hypertension Mother Acute myocardial infarction Sibling Congestive heart failure Hypertension Social History Social History (Updated 09/29/19 @ 23:33 by Radha Graves PA-C) Social History: The patient is a resident at [facility]. She never and has no children. 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 Her sister, Brooke, is her healthcare power of city attorney and she is listed as a full code. She is a former smoker but cannot provide me any further specifics. She smokes marijuana on occasion. She denies alcohol use. Gender identity (if verbalized by the patient): Female Spiritual care concerns: No Exam Narrative: Exam Narrative: GENERAL: Well-appearing, well-nourished, and in no acute distress. HEAD: Normocephalic, atraumatic. CHEST: Clear to auscultation. No respiratory distress. HEART: Regular rate and rhythm. Normal peripheral pulses. ABDOMEN: Soft, nontender, nondistended. EXTREMITIES: Normal range of motion. No edema. SKIN: Warm, dry, no rash. NEURO: Alert and oriented x2. PSYCH: Normal mood and affect. Course Course Emergency Course: Resting comfortably. Received ceftriaxone for infection. Discharge home. She has tolerated full meal without drop in her blood sugar. Vital Signs Vital signs: Vital Signs Pulse Rate 78 09/28/20 08:51 Respiratory Rate 14 09/28/20 08:51 Pulse Oximetry 99 09/28/20 08:51 Temperature 98.7 F 09/28/20 08:52 Pulse Rate 77 09/28/20 12:00 Respiratory Rate 16 09/28/20 12:00 Blood Pressure 141/74 H 09/28/20 11:46 Pulse Oximetry 100 09/28/20 10:16 Medical Decision Making Vital Signs Vital Signs: Vital Signs Pulse Rate 78 09/28/20 08:51 Respiratory Rate 14 09/28/20 08:51 Pulse Oximetry 99 09/28/20 08:51 Temperature 98.7 F 09/28/20 08:52 Pulse Rate 77 09/28/20 12:00 Respiratory Rate 16 09/28/20 12:00 Blood Pressure 1
--- NOTE | 2020-09-28 09:33 | PC.NURSE ---
fruit juice, applesauce and olayinka crackers served
[2020-09-28 09:57] LABS: Add Urine Microscopic? YES; Appearance Urine Turbid (Clear); Bacteria Urine 3+ /hpf; Bilirubin Urine Negative (Negative); Blood Urine 2+ (Negative); Color Urine Amber (Yellow); Glucose Urine UA Negative (Negative); Ketones Urine Negative (Negative); Leukocyte Esterase Ur 3+ LEU/UL (Negative); Mucus Urine Heavy /lpf; Nitrate Urine Negative (Negative); Protein Urine 2+ mg/dL (Negative); RBC Urine >75 /hpf (0-2); Specific Grav Ur 1.013 (1.001-1.035); Squamous Epithelial Cell Urine Few /hpf (Few); Urobilinogen Urine Negative mg/dL (<2.0); WBC Clumps Urine Present /HPF; WBC Urine >75 /hpf
[2020-09-28 10:34] LABS: Basophils Percent Auto 0.2 % (0.2-1.2); Eosinophils Percent Auto 0.7 % (0-4.4); Hematocrit 32.5 % (37.0-47.0); Hemoglobin 10.4 g/dL (12.0-15.0); Immature Granulocyte Absolute 0.02 K/mm3 (0.00-0.031); Immature Granulocyte Percent A 0.3 % (0-0.5); Lymphocytes Absolute Auto 1.27 K/mm3 (0.9-3.2); Lymphocytes Percent Auto 21.4 % (18.3-44.2); Mean Corpuscular Hemoglobin 31.3 pg (26-34); Mean Corpuscular Volume 97.9 fl (80-100); Mean Platelet Volume 9.6 fl (7.4-10.4); Monocytes Absolute Auto 0.4 K/mm3 (0.1-0.6); Monocytes Percent Auto 7.3 % (2.6-8.5); Neutrophils Absolute Auto 4.2 K/mm3 (1.3-6.7); Neutrophils Percent Auto 70.1 % (45.5-73.1); Platelet Count Result 183 k/mm3 (150-375); Red Blood Count 3.32 M/mm3 (4.2-5.4); Red Cell Distribution Width 13.6 % (11.5-14.5); White Blood Count 5.9 K/mm3 (4.5-10.0)
[2020-09-28 10:41] LABS: Anion Gap 7 mmol/L (8-16); Blood Urea Nitrogen 22 mg/dL (7-17); Calcium 8.8 mg/dL (8.4-10.2); Carbon Dioxide 24 mmol/L (22-30); Chloride 109 mmol/L (98-107); Estimated CRCL calculation 32 ml/min; Estimated Glomerular Filt Rate 40; Glucose 156 mg/dL (65-105); Potassium 4.3 mmol/L (3.4-5.0); Sodium 140 mmol/L (137-145)
[2020-09-28 10:59] LABS: Glucose Point of Care 128 mg/dl (65-105)
== END 2020-09-28 13:32 ==
PROVIDERS: Emergency Provider Emergency Medicine; PCP Internal Medicine
DX: E11.649 Type 2 diabetes mellitus with hypoglycemia without coma (principal); N39.0 Urinary tract infection, site not specified; F03.90 Unspecified dementia, unspecified severity, without behavioral disturbance, psychotic disturbance, mood disturbance, and anxiety; E11.22 Type 2 diabetes mellitus with diabetic chronic kidney disease; N18.30 Chronic kidney disease, stage 3 unspecified; Z79.4 Long term (current) use of insulin; E11.42 Type 2 diabetes mellitus with diabetic polyneuropathy; G47.33 Obstructive sleep apnea (adult) (pediatric); Z86.73 Personal history of transient ischemic attack (TIA), and cerebral infarction without residual deficits; Z87.891 Personal history of nicotine dependence; I49.1 Atrial premature depolarization; R94.31 Abnormal electrocardiogram [ECG] [EKG]
CPT/HCPCS: 36415; 51701; 80048; 81001; 82948; 85025; 87086; 87088; 93005; 96365; 99284; J0696

== ENCOUNTER 2020-10-09 21:56 | Emergency (ER) | payer MEDICARE, OTHER, SELFPAY ==
--- NOTE | ~2020-10-09 | CT_ITS ---
EXAMINATION: CT brain wo con DATE: 10/09/2020 22:37 INDICATION: Head injury. TECHNIQUE: Computed tomography (CT) of the head was performed without intravenous contrast. The mA wa s adjusted according to patient size. Iterative reconstruction technique was employed. The dose-lengt h product was 605.33 mGy-cm. COMPARISON: Head CT 09/29/2019 FINDINGS: There are old infarcts in right parietal and occipital lobes. There are scattered areas of low attenuation in the cerebral white matter. There is no intracranial hemorrhage, acute infarction, or abnormal intracranial mass lesion. The lateral and third ventricles are dilated out of portion to the size of the sulci. There is near complete opacification of right sphenoid sinus with thickening a nd sclerosis of the sinus ramon, consistent with chronic sinusitis. The mastoid air cells are normal. There are likely changes of ocular lens replacement surgeries. IMPRESSION: 1. Old infarcts in the right parietal and occipital lobes. 2. Stable extensive nonspecific cerebral white matter disease, which likely represents chronic small vessel ischemic disease. 3. Stable dilatation of the lateral and third ventricles. Correlate clinically for normal pressure hy drocephalus. 4. Chronic sinusitis. Reviewed, dictated and finalized at location A. IMPRESSION: 1. Old infarcts in the right parietal and occipital lobes. 2. Stable extensive nonspecific cerebral white matter disease, which likely rep resents chronic small vessel ischemic disease. 3. Stable dilatation of the lateral and third ventricles. Correlate clinically for normal pressure hydrocephalus. 4. Chronic sinusitis.
--- NOTE | ~2020-10-09 | CT_ITS ---
EXAMINATION: CT cervical spine wo con DATE: 10/09/2020 22:37 INDICATION: Head injury. TECHNIQUE: Computed tomography (CT) of the cervical spine was performed without intravenous contrast. Automated exposure control and iterative reconstruction technique were employed. The dose-length pro duct was 444.92 mGy-cm. COMPARISON: None FINDINGS: Bone alignment is normal. Vertebral body heights are normal. There is a hemangioma in T1 ve rtebral body. There is mildly decreased disc height at C2-C3, moderately decreased disc height at C3- C4, and mildly decreased disc height at C6-C7. The following disc levels are specifically discussed: C2-C3: There is no uncovertebral joint osteoarthritis. There is ankylosis of the facet joints with mi ld hypertrophy. There is no neural foraminal stenosis. There is no central canal stenosis. C3-C4: There is moderate right and severe left uncovertebral joint osteoarthritis. There is severe bi lateral facet joint osteoarthritis. There is moderate bilateral neural foraminal stenosis. There is m ild central canal stenosis. C4-C5: There is mild left uncovertebral joint osteoarthritis. There is severe left facet joint osteoa rthritis. There is mild left neural foraminal stenosis. There is mild central canal stenosis. C5-C6: There is no uncovertebral joint osteoarthritis. There is moderate right and severe left facet joint osteoarthritis. There is moderate left neural foraminal stenosis. There is no central canal aiyana nosis. C6-C7: There is no uncovertebral joint osteoarthritis. There is severe bilateral facet joint osteoart hritis. There is mild bilateral neural foraminal stenosis. There is no central canal stenosis. C7-T1: There is no uncovertebral joint osteoarthritis. There is severe bilateral facet joint osteoart hritis. There is mild right and moderate left neural foraminal stenosis. There is no central canal st enosis. IMPRESSION: 1. No fracture. 2. Moderate cervical spondylosis. Reviewed, dictated and finalized at location A.
[2020-10-09 21:47] VITALS: BP 146/64; PULSE 69; RESP 14; TEMP 36.6; O2SAT 100
--- NOTE | 2020-10-09 22:00 | ED.HEATRA ---
HPI - Head Injury General Chief complaint: Head Injury Stated complaint: glf, lf eye lac, rt hip pain, low bs Time Seen by Provider: 10/09/20 22:00 History of Present Illness HPI Narrative: 75 yo female w/ h/o DM, dementia presents from prison for a fall. She was reportedly being helped to the bathroom when she suddenly fell to the ground. Found to have blood glucose of 30 per EMS. she has no complaints at this time noted to have small left eyebrow laceration. Related Data Home Medications Medication Instructions Recorded Confirmed aspirin 81 mg PO DAILY 09/29/19 09/29/19 insulin aspart U-100 [Novolog 1 sliding scale dose SUBCUT 09/29/19 09/29/19 U-100 Insulin aspart] USEASDIRECTD mirtazapine 7.5 mg PO HS 09/29/19 09/29/19 omeprazole 20 mg PO DAILY 09/29/19 09/29/19 Allergies Allergy/AdvReac Type Severity Reaction Status Date / Time levofloxacin Allergy Unknown Unknown Verified 09/28/20 09:02 oxycodone Allergy Unknown Unknown Verified 09/28/20 09:02 Penicillins Allergy Unknown Unknown Verified 09/28/20 09:02 Review of Systems Review of Systems: ROS unobtainable: Yes unobtainable due to mental status PMFSH Past Medical History Medical History Anemia With history of blood transfusion with GI bleed in December 2018. Cerebrovascular accident Old infarcts in the right parietal and occipital lobe noted on brain CT on 09/29/2019. Chronic kidney disease, stage 3 Baseline creatinine is around 1.4 to 1.60. Dementia Depression Diabetic peripheral neuropathy GI bleed (~12/2018) Secondary to large duodenal ulcer. Insulin dependent type 2 diabetes mellitus Obstructive sleep apnea Patient states she no longer uses a CPAP. Surgical History Surgical History History of cataract extraction Family History Family History Father Acute myocardial infarction Hypertension Mother Acute myocardial infarction Sibling Congestive heart failure Hypertension Social History Social History Social History: The patient is a resident at [facility]. She never and has no children. 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 Her sister, Brooke, is her healthcare power of document review attorney and she is listed as a full code. She is a former smoker but cannot provide me any further specifics. She smokes marijuana on occasion. She denies alcohol use. Gender identity (if verbalized by the patient): Female Spiritual care concerns: No Exam Const: General: no acute distress and alert Nutritional Appearance: well nourished HENMT: Other: small superficial laeration to left eyebrow Eyes: Pupils: Equal, round and reactive pupils present EOM: EOMs intact bilaterally Neck: Neck: normal visual inspection Resp: Effort & Inspection: normal respiratory effort Auscultation: clear to auscultation bilaterally Cardio: Rate: regular rate Rhythm: regular rhythm GI: GI Palp: Yes Soft to palpation and No Tenderness to palpation present (GI) Skin: General skin exam: normal color Neuro: General: moves all extremities and no focal motor deficits Cranial nerves: Yes CN's II-XII intact bilaterally Speech: normal speech Other: oriented x2 Extrem: General: normal to inspection Course Vital Signs Vital signs: Vital Signs Temperature 36.6 C 10/09/20 21:47 Pulse Rate 69 10/09/20 21:47 Respiratory Rate 14 10/09/20 21:47 Blood Pressure 146/64 H 10/09/20 21:47 Pulse Oximetry 100 10/09/20 21:47 Temperature 37.0 C 10/10/20 02:03 Pulse Rate 84 10/10/20 02:03 Respiratory Rate 17 10/10/20 02:03 Blood Pressure 151/72 H 10/10/20 02:03 Pulse Oximetry 100 10/10/20 02:03 MDM - Head Injury Differential Diagnosis Differential diagnosis: Likely concussion without loss of c
[2020-10-09 22:01] VITALS: O2SAT 100
--- NOTE | 2020-10-09 22:03 | PC.NURSE ---
Pt presents to ED post fall at [facility] where she resides. Pt arrived alert and oriented to baseline. Per EMS, nurse was ambulating pt to restroom when she suddenly fell and hit her head on the toilet bowl. Per EMS, nurse denies loc with fall. 0.5cm laceration noted to left forehead. Pt glucose 30 upon EMS arrival ; glucose 110 en route to ED. EMS states pt was initially was more confused and is now more alert and oriented at this time. Per EMS, staff was unable to provide medical hx and unsure of pt baseline orientation. Pt a/o x2. Pt was initially complaining of pain to right hip but is able to move extremity without difficulty. Pain also noted to right baby toe. Glucose 98.
[2020-10-09 22:17] LABS: Glucose Point of Care 98 mg/dl (65-105)
--- NOTE | 2020-10-09 22:19 | PC.NURSE ---
EDMD presented to bedside.
--- NOTE | 2020-10-09 23:05 | ECG_ITS ---
Measurements Intervals [place] Rate: 67 P: 103 [place]: 188 QRS: -27 QRSD: 79 T: 66 QT: 378 QTc: 402 Interpretive Statements SINUS RHYTHM BORDERLINE ST-T WAVE ABNORMALITY- HIGH LATERAL LEADS BASELINE ARTIFACT- I, II, III, AVR, AVL, AVF, V1-V6 BORDERLINE ECG Electronically Signed On 10-15-2020 9:53:57 CDT by Denton Franks D.O.
--- NOTE | 2020-10-09 23:05 | PC.NURSE ---
Pt resting on cart in its lowest position with call button and personal items within reach. Pt in no obvious distress and vitals are stable. Pt has no complaints or concerns voiced at this time and advised to press call button for assistance.
--- NOTE | 2020-10-10 01:11 | PC.NURSE ---
Pt resting on cart in its lowest position with call button and personal items within reach. Pt awaiting transportation back to [facility].
--- NOTE | 2020-10-10 02:02 | PC.NURSE ---
EMS to arrive at approx 0230. Pt continues resting on cart in its lowest position with call button and personal items within reach. Pt in no obvious distress and remains alert and responsive. Awaiting arrival of EMS.
[2020-10-10 02:03] VITALS: BP 151/72; PULSE 84; RESP 17; TEMP 37; O2SAT 100
--- NOTE | 2020-10-10 02:18 | PC.NURSE ---
Pt with soiled brief and linens. Pt david area cleansed, brief changed and pt provided warm blankets. Pt now resting on cart in its lowest position with call button and personal item within reach. Pt advised to press call button for assistance.
--- NOTE | 2020-10-10 02:49 | PC.NURSE ---
EMS arrived for pt transportation back to [facility].
== END 2020-10-10 02:57 ==
PROVIDERS: Emergency Provider Emergency Medicine; PCP Internal Medicine
DX: S09.90XA Unspecified injury of head, initial encounter (principal); F03.90 Unspecified dementia, unspecified severity, without behavioral disturbance, psychotic disturbance, mood disturbance, and anxiety; E11.22 Type 2 diabetes mellitus with diabetic chronic kidney disease; N18.30 Chronic kidney disease, stage 3 unspecified; Z79.82 Long term (current) use of aspirin; Z79.4 Long term (current) use of insulin; Z86.73 Personal history of transient ischemic attack (TIA), and cerebral infarction without residual deficits; W19.XXXA Unspecified fall, initial encounter; Y92.121 Bathroom in nursing home as the place of occurrence of the external cause
CPT/HCPCS: 70450; 72125; 82948; 93005; 99284

== ENCOUNTER 2020-12-30 03:21 | Emergency (ER) | payer MEDICARE, OTHER, SELFPAY ==
--- NOTE | ~2020-12-30 | CT_ITS ---
EXAMINATION: CT brain wo con DATE: 12/30/2020 06:43 INDICATION: Unresponsive episode TECHNIQUE: Computed tomography (CT) of the head was performed without intravenous contrast. Sagittal and coronal reconstructions were performed. The mA was adjusted according to patient size. Iterative reconstruction technique was employed. The dose-length product was 605.33 mGy-cm. COMPARISON: head CT dated 10/09/2020 FINDINGS: Moderate-sized region of right parieto-occipital encephalomalacia consistent with chronic infarct. Ad ditional extensive scattered white matter hypoattenuation consistent with chronic small vessel ischem ic disease. No acute intracranial hemorrhage, acute infarction or abnormal extra axial fluid collecti on. Symmetric dilation of the ventricles which is disproportionate to the relatively mild increased p rominence of the sulci. No mass/mass effect. Mucosal thickening with calcification in near complete o pacification of the right sphenoid sinus which also demonstrates thickened sclerotic ramon consistent with chronic sinusitis. Changes of bilateral intraocular lens replacement. The orbits and mastoid a ir cells are normal. Intracranial calcified cerebral atherosclerosis is noted. IMPRESSION: 1. No acute intracranial process. 2. Old infarcts in the right parietal and occipital lobes. 3. Extensive scattered white matter hypoattenuation consistent with chronic small vessel ischemic dis ease. 4. Stable symmetric dilation of the ventricles correlate clinically for normal pressure hydrocephalus (NPH: clinical triad ataxia/gait disturbance, dementia, urinary incontinence). 5. Chronic right sphenoid sinusitis. Reviewed, dictated and finalized at location A. IMPRESSION: 1. No acute intracranial process. 2. Old infarcts in the right parietal and occipital lobes. 3. Extensive scattered white matter hypoattenuation consistent with chronic sma ll vessel ischemic disease. 4. Stable symmetric dilation of the ventricles correlate clinically for normal pressure hydrocephalus (NPH: clinical triad ataxia/gait disturbance, dementia, urinary incontinence). 5. Chronic right sphenoid sinusitis.
--- NOTE | ~2020-12-30 | XR_ITS ---
EXAMINATION: XR chest 2V DATE: 12/30/2020 06:49 INDICATION: Unresponsive episode TECHNIQUE: frontal and lateral views of the chest were obtained. COMPARISON: Chest radiograph dated 09/29/2019 FINDINGS: Unchanged mild elevation of the right hemidiaphragm. No focal airspace opacities, pulmonary edema, pl eural effusion or pneumothorax. The cardiomediastinal silhouette is normal. Mild lower thoracic dextr ocurvature. Partially visualized pedicle screws at the upper lumbar spine likely for an occult nonvis ualized posterior spinal fusion. IMPRESSION: 1. No acute cardiopulmonary disease. Reviewed, dictated and finalized at location A.
--- NOTE | 2020-12-30 03:26 | ECG_ITS ---
Measurements Intervals [place] Rate: 68 P: 82 PA: 152 QRS: -42 QRSD: 90 T: 61 QT: 414 QTc: 441 Interpretive Statements SINUS RHYTHM LEFT AXIS DEVIATION BASELINE ARTIFACT- II, III, AVR, AVF, V2-V6 BORDERLINE ECG Electronically Signed On 12-30-2020 6:58:53 CDT by Denton Franks D.O.
[2020-12-30 03:27] VITALS: BP 94/66; PULSE 72; RESP 12; TEMP 36.6; O2SAT 99
--- NOTE | 2020-12-30 03:38 | ED.RECABL ---
HPI - Recheck/Abnormal Lab/Rx General Chief Complaint: Recheck/Abnormal Lab/Rx Stated Complaint: seizure, unresponsive, combative, hypogycemia Time Seen by Provider: 12/30/20 03:37 Source: patient Mode of arrival: EMS Limitations: dementia History of Present Illness HPI narrative: Patient is a 75-year-old female with a history of dementia, diabetes, who presents for evaluation of altered mental status. Patient resides at [facility], was found unresponsive, with blood glucose reading low for EMS. Patient was started on an IV, given D5 with improvement in mentation and repeat glucose in the 140s. Patient arrives to our facility alert to person, place, not to time per her baseline. She states that she feels great. She denies any acute pain. She states that this evening she had breakfast for dinner including eggs, kincaid and a biscuit. Patient denies any current headache, vision changes, chest pain, abdominal pain. Pt with recurrent visits to our facility for hypoglycemia per chart review. Related Data Home Medications Medication Instructions Recorded Confirmed aspirin 81 mg PO DAILY 09/29/19 09/29/19 insulin aspart U-100 [Novolog 1 sliding scale dose SUBCUT 09/29/19 09/29/19 U-100 Insulin aspart] USEASDIRECTD mirtazapine 7.5 mg PO HS 09/29/19 09/29/19 omeprazole 20 mg PO DAILY 09/29/19 09/29/19 duloxetine mg PO 12/30/20 glucagon [Glucagon Emergency Kit 12/30/20 (human)] insulin glargine [Lantus Solostar SUBCUT 12/30/20 U-100 Insulin] insulin lispro protamin-lispro SUBCUT 12/30/20 [Humalog Mix 75-25 KwikPen] mirtazapine mg 12/30/20 Allergies Allergy/AdvReac Type Severity Reaction Status Date / Time levofloxacin Allergy Unknown Unknown Verified 12/30/20 05:44 oxycodone Allergy Unknown Unknown Verified 12/30/20 05:44 Penicillins Allergy Unknown Unknown Verified 12/30/20 05:44 Review of Systems Review of Systems: CONSTITUTIONAL: Denies fever CARDIOVASCULAR: Denies chest pain RESPIRATORY: Denies cough or dyspnea. GASTROINTESTINAL: Denies abdominal pain SKIN: Denies rash MUSCULOSKELETAL: Denies back pain NEUROLOGIC: Denies headache PMFSH Past Medical History Medical History Anemia With history of blood transfusion with GI bleed in December 2018. Cerebrovascular accident Old infarcts in the right parietal and occipital lobe noted on brain CT on 09/29/2019. Chronic kidney disease, stage 3 Baseline creatinine is around 1.4 to 1.60. Dementia Depression Diabetic peripheral neuropathy GI bleed (~12/2018) Secondary to large duodenal ulcer. Insulin dependent type 2 diabetes mellitus Obstructive sleep apnea Patient states she no longer uses a CPAP. Surgical History Surgical History History of cataract extraction Family History Family History Father Acute myocardial infarction Hypertension Mother Acute myocardial infarction Sibling Congestive heart failure Hypertension Social History Social History Social History: The patient is a resident at [facility]. She never and has no children. Previously worked with [employer]. Her sister, Brooke, is her healthcare power of regulatory attorney and she is listed as a full code. She is a former smoker but cannot provide me any further specifics. She smokes marijuana on occasion. She denies alcohol use. Gender identity (if verbalized by the patient): Female Spiritual care concerns: No Exam Narrative: GENERAL: Awake, alert, conversant HEAD: Normocephalic, atraumatic. EYES: PERRLA and EOMI. ENT: Nares clear, no rhinorrhea or epistaxis. Mucous membranes moist. NECK: Supple. CHEST: No respiratory distress, breathing even and non labored HEART: Regular rate, sinus rhythm ABDOMEN:Non distended, no
[2020-12-30 03:41] LABS: Glucose Point of Care 149 mg/dl (65-105)
[2020-12-30 04:04] LABS: Basophils Percent Auto 0.2 % (0.2-1.2); Eosinophils Absolute Auto 0.1 K/mm3 (0-0.3); Eosinophils Percent Auto 1.5 % (0-4.4); Hematocrit 31.2 % (37.0-47.0); Hemoglobin 10.1 g/dL (12.0-15.0); Immature Granulocyte Absolute 0.01 K/mm3 (0.00-0.031); Immature Granulocyte Percent A 0.2 % (0-0.5); Lymphocytes Absolute Auto 1.44 K/mm3 (0.9-3.2); Lymphocytes Percent Auto 30.5 % (18.3-44.2); Mean Corpuscular HGB Conc 32.4 g/dl (32-36); Mean Corpuscular Hemoglobin 31.5 pg (26-34); Mean Corpuscular Volume 97.2 fl (80-100); Mean Platelet Volume 8.9 fl (7.4-10.4); Monocytes Absolute Auto 0.4 K/mm3 (0.1-0.6); Monocytes Percent Auto 8.1 % (2.6-8.5); Neutrophils Absolute Auto 2.8 K/mm3 (1.3-6.7); Neutrophils Percent Auto 59.5 % (45.5-73.1); Platelet Count Result 150 k/mm3 (150-375); Red Blood Count 3.21 M/mm3 (4.2-5.4); Red Cell Distribution Width 13.2 % (11.5-14.5); White Blood Count 4.7 K/mm3 (4.5-10.0)
[2020-12-30 04:12] LABS: Add Urine Microscopic? YES; Appearance Urine Cloudy (Clear); Bilirubin Urine Negative (Negative); Blood Urine 3+ (Negative); Color Urine Yellow (Yellow); Glucose Urine UA Negative (Negative); Ketones Urine Negative (Negative); Leukocyte Esterase Ur 3+ LEU/UL (Negative); Mucus Urine Rare /lpf; Nitrate Urine Negative (Negative); Protein Urine 1+ mg/dL (Negative); Specific Grav Ur 1.012 (1.001-1.035); Squamous Epithelial Cell Urine Rare /hpf (Few); Urobilinogen Urine Negative mg/dL (<2.0); WBC Urine >75 /hpf
[2020-12-30 04:15] LABS: Anion Gap 6 mmol/L (8-16); Blood Urea Nitrogen 18 mg/dL (7-17); Calcium 8.4 mg/dL (8.4-10.2); Carbon Dioxide 24 mmol/L (22-30); Chloride 107 mmol/L (98-107); Estimated CRCL calculation 34 ml/min; Estimated Glomerular Filt Rate 48; Glucose 119 mg/dL (65-110); Potassium 3.6 mmol/L (3.4-5.0); Sodium 137 mmol/L (137-145)
[2020-12-30 04:23] VITALS: BP 112/67; PULSE 67; RESP 16; O2SAT 99
[2020-12-30 05:27] VITALS: BP 105/58; PULSE 77; RESP 12; O2SAT 98
--- NOTE | 2020-12-30 06:12 | PC.NURSE ---
Per Dr Ney RANDHAWA VORKerry, give pt drink/snack due to BS 60 at this time.
[2020-12-30 06:13] LABS: Glucose Point of Care 60 mg/dl (65-105)
[2020-12-30 06:26] VITALS: BP 116/70; PULSE 79; RESP 18; O2SAT 97
[2020-12-30 07:43] LABS: Glucose Point of Care 112 mg/dl (65-105)
[2020-12-30 08:45] VITALS: BP 112/78; PULSE 75; RESP 18; O2SAT 100
== END 2020-12-30 09:38 ==
PROVIDERS: Emergency Provider Emergency Medicine; PCP Internal Medicine
DX: E11.649 Type 2 diabetes mellitus with hypoglycemia without coma (principal); N39.0 Urinary tract infection, site not specified; F03.90 Unspecified dementia, unspecified severity, without behavioral disturbance, psychotic disturbance, mood disturbance, and anxiety; D64.9 Anemia, unspecified; E11.22 Type 2 diabetes mellitus with diabetic chronic kidney disease; N18.30 Chronic kidney disease, stage 3 unspecified; E11.42 Type 2 diabetes mellitus with diabetic polyneuropathy; G47.33 Obstructive sleep apnea (adult) (pediatric); F32.9 Major depressive disorder, single episode, unspecified; Z86.73 Personal history of transient ischemic attack (TIA), and cerebral infarction without residual deficits; Z79.4 Long term (current) use of insulin; Z79.82 Long term (current) use of aspirin; Z98.49 Cataract extraction status, unspecified eye; Z87.891 Personal history of nicotine dependence; J32.3 Chronic sphenoidal sinusitis
CPT/HCPCS: 36415; 51701; 70450; 71046; 80048; 81001; 82948; 85025; 87086; 87088; 93005; 99284

== ENCOUNTER 2021-01-08 17:33 | Inpatient (IN) | payer MEDICARE, OTHER, SELFPAY ==
--- NOTE | ~2021-01-08 | CT_ITS ---
EXAMINATION: 1. CT facial & cervical spine wo DATE: 01/08/2021 18:31 INDICATION: Dementia presenting with altered mental status post multiple falls. TECHNIQUE: 1. Computed tomography (CT) of the maxillofacial region and of the cervical spine were performed with out intravenous contrast. Sagittal and coronal reconstructions of both regions were obtained. Automat ed exposure control and iterative reconstruction technique were employed. The dose-length product was 331.75 mGy-cm. COMPARISON: 10/09/2020 FINDINGS: Maxillofacial CT: Normal alignment at the bilateral temporomandibular joints. No maxillofacial fractures. Specifically the ramon of the orbits, paranasal sinuses, the mandible, zygomatic arches and pterygoid plates are i ntact. Nasal septum is midline. Chronic right sphenoid sinusitis with thin sclerotic ramon and partia l opacification of the sinus with central calcification. Remainder of the paranasal sinuses are clear . Mastoid air cells and middle ear cavities are clear. Intracranial calcified cerebral atherosclerosi s is noted. Cervical spine CT: Alignment is normal. Severe osteoarthritis at the atlantoaxial articulation. Vertebral body heights a re normal. No fracture. Hemangioma the T1 vertebral body. Moderate disc height loss at C3-C4 and mild disc height loss at C2-C3 and C6-C7. Moderate cervical spondylosis including severe multilevel bilat eral cervical facet osteoarthritis, left greater than right. See prior report for level by level anal ysis. Mild atherosclerotic calcifications at the bilateral carotid bulbs. Cervical soft tissues are o therwise unremarkable. Visualized airway and apices of lungs are clear. IMPRESSION: 1. No maxillofacial fractures. 2. Moderate cervical spondylosis. No acute osseous abnormality. 3. Chronic right sphenoid sinusitis. Reviewed, dictated and finalized at location A.
--- NOTE | ~2021-01-08 | CT_ITS ---
EXAMINATION: CT brain wo con DATE: 01/08/2021 18:31 INDICATION: Fall with altered mental status TECHNIQUE: Computed tomography (CT) of the head was performed without intravenous contrast. Sagittal and coronal reconstructions were performed. The mA was adjusted according to patient size. Iterative reconstruction technique was employed. The dose-length product was 605.33 mGy-cm. COMPARISON: head CT dated 12/30/2020 FINDINGS: No calvarial fracture. Moderate-sized region of right parieto-occipital encephalomalacia consistent w ith chronic infarct. 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 No acute intracranial hemorrhage, acute infarction or abnormal ext ra axial fluid collection. Symmetric dilation of the ventricles which is disproportionate to the rela tively mild increased prominence of the sulci. No mass/mass effect. Mucosal thickening with central c alcification and near complete opacification of the right sphenoid sinus which also demonstrates thic kened sclerotic ramon consistent with chronic sinusitis. Changes of bilateral intraocular lens replac ement. The orbits and mastoid air cells are normal. Intracranial calcified cerebral atherosclerosis i s noted. IMPRESSION: 1. No fracture or acute intracranial process. 2. Old infarcts in the right parietal and occipital lobes. 3. Extensive scattered white matter hypoattenuation consistent with chronic small vessel ischemic dis ease. 4. Stable symmetric dilation of the ventricles correlate clinically for normal pressure hydrocephalus (NPH: clinical triad ataxia/gait disturbance, dementia, urinary incontinence). 5. Chronic right sphenoid sinusitis. Reviewed, dictated and finalized at location A. IMPRESSION: 1. No fracture or acute intracranial process. 2. Old infarcts in the right parietal and occipital lobes. 3. Extensive scattered white matter hypoattenuation consistent with chronic sma ll vessel ischemic disease. 4. Stable symmetric dilation of the ventricles correlate clinically for normal pressure hydrocephalus (NPH: clinical triad ataxia/gait disturbance, dementia, urinary incontinence). 5. Chronic right sphenoid sinusitis.
--- NOTE | ~2021-01-08 | XR_ITS ---
EXAMINATION: XR chest 2V DATE: 01/08/2021 18:13 INDICATION: Multiple falls. Altered mental status. TECHNIQUE: frontal and lateral views of the chest were obtained. COMPARISON: Chest radiograph dated 12/30/2020 FINDINGS: The lungs remain clear with no focal airspace opacities, pulmonary edema, pleural effusion or pneumot horax. The cardiomediastinal silhouette is normal. Mild lower thoracic dextroscoliosis. Partially vis ualized screws at L2 for a more caudal non visualized lumbar posterior spinal fusion. IMPRESSION: 1. No acute cardiopulmonary disease. Reviewed, dictated and finalized at location A.
[2021-01-08 17:46] VITALS: BP 165/80; PULSE 74; RESP 18; TEMP 36.2; O2SAT 100
--- NOTE | 2021-01-08 17:53 | ECG_ITS ---
Measurements Intervals [place] Rate: 70 P: 68 OH: 170 QRS: -26 QRSD: 100 T: 52 QT: 395 QTc: 428 Interpretive Statements SINUS RHYTHM ATRIAL PREMATURE COMPLEX LOW QRS VOLTAGE IN PRECORDIAL LEADS BORDERLINE R WAVE PROGRESSION, ANTERIOR LEADS BASELINE ARTIFACT- II, III, AVF, V3-V6 BORDERLINE ECG Electronically Signed On 01-08-2021 20:41:44 CDT by Denton Franks D.O.
[2021-01-08 17:56] LABS: Glucose Point of Care 429 mg/dl (65-105)
[2021-01-08 18:08] LABS: Basophils Percent Auto 0.2 % (0.2-1.2); Eosinophils Absolute Auto 0.1 K/mm3 (0-0.3); Eosinophils Percent Auto 1.1 % (0-4.4); Hematocrit 30.1 % (37.0-47.0); Hemoglobin 9.7 g/dL (12.0-15.0); Immature Granulocyte Absolute 0.02 K/mm3 (0.00-0.031); Immature Granulocyte Percent A 0.3 % (0-0.5); Lymphocytes Absolute Auto 2.17 K/mm3 (0.9-3.2); Lymphocytes Percent Auto 34.8 % (18.3-44.2); Mean Corpuscular HGB Conc 32.2 g/dl (32-36); Mean Corpuscular Hemoglobin 31.5 pg (26-34); Mean Corpuscular Volume 97.7 fl (80-100); Mean Platelet Volume 9.6 fl (7.4-10.4); Monocytes Absolute Auto 0.5 K/mm3 (0.1-0.6); Monocytes Percent Auto 8.2 % (2.6-8.5); Neutrophils Absolute Auto 3.5 K/mm3 (1.3-6.7); Neutrophils Percent Auto 55.4 % (45.5-73.1); Platelet Count Result 160 k/mm3 (150-375); Red Blood Count 3.08 M/mm3 (4.2-5.4); Red Cell Distribution Width 13.1 % (11.5-14.5); White Blood Count 6.2 K/mm3 (4.5-10.0)
[2021-01-08 18:19] LABS: Alanine Aminotransferase 11 U/L (4-35); Albumin Level 3.8 g/dL (3.5-5.1); Alkaline Phosphatase 111 U/L (38-126); Anion Gap 8 mmol/L (8-16); Aspartate Amino Transferase 19 U/L (14-36); Bilirubin,Total 0.5 mg/dL (0.2-1.3); Blood Urea Nitrogen 25 mg/dL (7-17); Calcium 8.4 mg/dL (8.4-10.2); Carbon Dioxide 23 mmol/L (22-30); Chloride 100 mmol/L (98-107); Estimated CRCL calculation 30 ml/min; Estimated Glomerular Filt Rate 37; Glucose 420 mg/dL (65-110); Potassium 5.3 mmol/L (3.4-5.0); Sodium 131 mmol/L (137-145)
--- NOTE | 2021-01-08 18:43 | ED.FALL ---
HPI - Fall General Chief Complaint: Fall Stated Complaint: MULTIPLE FALLS Time Seen by Provider: 01/08/21 18:17 Source: patient Mode of arrival: EMS Limitations: dementia History of Present Illness HPI Narrative: Patient is a 75-year-old female brought in by EMS from [facility] due to 2 falls that happened today. EMS states that patient fell twice transferring from her wheelchair to the sofa. snf staff states that patient was slightly more confused than usual. Patient is alert and awake, states that she feels fine, has no complaints at this time and doesn't know why she is here. Patient denies any headache, dizziness, neck pain chest pain, shortness of breath, abdominal pain, back pain, hip pain or any extremity pain/injury. Related Data Home Medications Medication Instructions Recorded Confirmed aspirin 81 mg PO DAILY 09/29/19 09/29/19 insulin aspart U-100 [Novolog 1 sliding scale dose SUBCUT 09/29/19 09/29/19 U-100 Insulin aspart] USEASDIRECTD mirtazapine 7.5 mg PO HS 09/29/19 09/29/19 omeprazole 20 mg PO DAILY 09/29/19 09/29/19 duloxetine mg PO 12/30/20 glucagon [Glucagon Emergency Kit 12/30/20 (human)] insulin glargine [Lantus Solostar SUBCUT 12/30/20 U-100 Insulin] insulin lispro protamin-lispro SUBCUT 12/30/20 [Humalog Mix 75-25 KwikPen] mirtazapine mg 12/30/20 Allergies Allergy/AdvReac Type Severity Reaction Status Date / Time levofloxacin Allergy Unknown Unknown Verified 12/30/20 05:44 oxycodone Allergy Unknown Unknown Verified 12/30/20 05:44 Penicillins Allergy Unknown Unknown Verified 12/30/20 05:44 Review of Systems Review of Systems: All systems reviewed & are unremarkable except as noted in HPI and below Constitutional: Constitutional: Denies body ache(s), Denies chills, Denies excessive sweating, Denies fatigue, Denies fever(s), Denies headache(s), Denies lethargy, Denies malaise, Denies weakness and Denies weight loss Eyes: Eyes: Denies blurry vision, Denies change in vision and Denies loss of vision ENT: Denies dizziness, Denies ear discharge, Denies headache(s), Denies lip swelling, Denies epistaxis, Denies nasal congestion, Denies neck pain, Denies throat swelling and Denies tongue swelling Cardiovascular: Cardiovascular: Denies chest pain, Denies chest pain at rest, Denies chest pain with activity, Denies diaphoresis, Denies rapid heart rate, Denies edema, Denies irregular heart rhythm, Denies lightheadedness, Denies palpitations, Denies dyspnea and Denies dyspnea on exertion Respiratory: Respiratory: Denies chest congestion, Denies cough, Denies hemoptysis, Denies dyspnea and Denies dyspnea on exertion Gastrointestinal: Gastrointestinal: Denies abdominal pain, Denies melena, Denies hematochezia, Denies diarrhea, Denies nausea, Denies vomiting and Denies hematemesis Musculoskeletal: Musculoskeletal: Denies abnormal gait, Denies deformity, Denies joint swelling, Denies limited range of motion, Denies neck pain and Denies numbness Neurologic: Denies Abnormal speech present, Denies abnormal gait, Denies confusion, Denies dizziness, Denies headache(s), Denies focal weakness, Denies loss of vision, Denies numbness, Denies Other visual disturbances, Denies Sensory deficit (Neuro) and Denies weakness Psychiatric: Psychiatric: Denies confusion, Denies depression, Denies auditory hallucinations, Denies homicidal ideation and Denies suicidal ideation Endocrine: Endocrine: Denies cold intolerance, Denies excessive sweating, Denies fatigue, Denies heat intolerance and Denies palpitations Hematologic/Lymphatic: Hematologic/Lymphatic: Denies easy bleeding and Denies easy bruising Allergic/Immunologic: Allergic/Immunologic: Denies lip swelling, Denies throat swelling and Denies tongue swelling PMFSH Past Medical History Medical History Anemia With history of blood transfusion with GI bleed in December 2018. Cerebrovascular accident
[2021-01-08 18:46] VITALS: BP 151/73; PULSE 66; RESP 13; O2SAT 100
[2021-01-08 19:13] LABS: Add Urine Microscopic? YES; Appearance Urine Turbid (Clear); Bacteria Urine 2+ /hpf; Bilirubin Urine Negative (Negative); Blood Urine 2+ (Negative); Color Urine Yellow (Yellow); Glucose Urine UA 3+ mg/dL (Negative); Ketones Urine Negative (Negative); Leukocyte Esterase Ur 3+ LEU/UL (Negative); Mucus Urine Heavy /lpf; Nitrate Urine Negative (Negative); Protein Urine 2+ mg/dL (Negative); RBC Urine 51-75 /hpf (0-2); Specific Grav Ur 1.013 (1.001-1.035); Urobilinogen Urine Negative mg/dL (<2.0); WBC Urine >75 /hpf
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
[2021-01-08 20:37] VITALS: BP 159/107; PULSE 112; RESP 20; O2SAT 98
[2021-01-08] MEDS: INSULIN HUMAN REGULAR (*BKC) 100 UNITS/ML 10 UNITS IV PUSH (21:21)
[2021-01-08 21:29] LABS: Glucose Point of Care 363 mg/dl (65-105)
[2021-01-08 21:46] VITALS: PULSE 89; RESP 16; O2SAT 99
[2021-01-08 22:14] LABS: Glucose Point of Care 192 mg/dl (65-105)
[2021-01-08 22:35] VITALS: BP 151/59; PULSE 82; RESP 16; O2SAT 98
--- NOTE | 2021-01-08 22:45 | ADMGEN ---
This patient, Kari Lopez, was admitted to Medical Room 346-01. Patient/family oriented to hospital policies and general routines including ID bracelet, bed and alarms, visiting hours, pain management, procedures, bathroom and other care routines, personal items, smoking policy, room service/diet, and visiting hours. Information on how to activate the Rapid Response Team has been discussed. Patient/Family are encouraged to report perceived risks to care and to ask questions if they do not understand what they are told or what they should do.
[2021-01-08] MEDS: LACTATED RINGERS 1,000 ML 75 ML IV CONT (22:55)
[2021-01-08 22:56] LABS: Glucose Point of Care 118 mg/dl (65-105)
[2021-01-08 23:05] VITALS: BP 124/56; PULSE 82; RESP 14; TEMP 37.2; O2SAT 97
[2021-01-08 23:11] VITALS: BMI 23.6
[2021-01-09] VITALS (9 sets, daily range): BP systolic 137–155; BP diastolic 70–88; PULSE 69–104; RESP 14–20; TEMP 35.8–36.7; O2SAT 95–100
[2021-01-09 00:16] LABS: Glucose Point of Care 116 mg/dl (65-105)
[2021-01-09 04:12] LABS: Glucose Point of Care 158 mg/dl (65-105)
[2021-01-09 05:59] LABS: Eosinophils Absolute Auto 0.1 K/mm3 (0-0.3); Eosinophils Percent Auto 1.1 % (0-4.4); Hematocrit 30.3 % (37.0-47.0); Immature Granulocyte Absolute 0.03 K/mm3 (0.00-0.031); Immature Granulocyte Percent A 0.4 % (0-0.5); Lymphocytes Absolute Auto 1.82 K/mm3 (0.9-3.2); Lymphocytes Percent Auto 25.2 % (18.3-44.2); Mean Corpuscular Hemoglobin 30.8 pg (26-34); Mean Corpuscular Volume 93.2 fl (80-100); Mean Platelet Volume 9.3 fl (7.4-10.4); Monocytes Absolute Auto 0.5 K/mm3 (0.1-0.6); Monocytes Percent Auto 6.2 % (2.6-8.5); Neutrophils Absolute Auto 4.9 K/mm3 (1.3-6.7); Neutrophils Percent Auto 67.1 % (45.5-73.1); Platelet Count Result 166 k/mm3 (150-375); Red Blood Count 3.25 M/mm3 (4.2-5.4); Red Cell Distribution Width 12.7 % (11.5-14.5); White Blood Count 7.2 K/mm3 (4.5-10.0)
[2021-01-09 06:21] LABS: Hemoglobin A1C 7.6 % (<5.7)
[2021-01-09 07:00] LABS: Anion Gap 2 mmol/L (8-16); Blood Urea Nitrogen 17 mg/dL (7-17); Carbon Dioxide 30 mmol/L (22-30); Chloride 109 mmol/L (98-107); Estimated CRCL calculation 31 ml/min; Estimated Glomerular Filt Rate 44; Glucose 166 mg/dL (65-110); Potassium 4.2 mmol/L (3.4-5.0); Sodium 141 mmol/L (137-145)
[2021-01-09 07:38] LABS: Glucose Point of Care 158 mg/dl (65-105)
--- NOTE | 2021-01-09 08:52 | PM.IMPN ---
Progress Note: A&P Assessment and Plan (1) Bacteriuria with pyuria: Code(s): R82.71 - Bacteriuria; R82.81 - Pyuria Status: Acute Assessment and Plan: Patient has been placed on empiric antibiotic therapy with Rocephin. Urine cultures are pending. (2) Hyperkalemia: Code(s): E87.5 - Hyperkalemia Status: Acute Assessment and Plan: Resolved. 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 Will place on high-dose sliding scale insulin with Accu-Cheks a.c. HS and hypoglycemia protocol. Will check hemoglobin A1c with a.m. labs. Depending on A1c value may need to increase the patient's Lantus dose for more adequate glycemic control. (4) Fall: Qualifiers: Encounter type: initial encounter Qualified Code(s): W19.XXXA - Unspecified fall, initial encounter Code(s): W19.XXXA - Unspecified fall, initial encounter Status: Acute Assessment and Plan: Patient was more likely to fall due to bacteria and pyuria as well as significant hyperglycemia. Fall precautions. Additional Plan Patient is getting better. We will continue current antibiotics. Urine culture is pending. Possible discharge tomorrow morning. Subjective Date/time seen: 01/09/21 08:52 Patient was seen during the morning rounds today. Patient is feeling much better. No shortness of breath or chest pain. No abdominal pain, no nausea, no vomiting. Mood stable. Review of Systems Review of Systems: ROS unobtainable: Yes unobtainable due to medical condition and unobtainable due to mental status Exam Narrative: PHYSICAL EXAM: WEIGHT 72.7 kg BMI 27.5 General: No acute distress, well-developed well-nourished HEENT: Poor dentition with multiple missing teeth, teeth rotted off at the gumline, remaining teeth are intact and are not loose, mucous membranes are tacky, laceration to the right lower lip, marked bruising to bilateral chin, pupils are equal and reactive, positive conjunctival pallor, no scleral icterus Respiratory: Clear to auscultation bilaterally, no increased work of breathing Cardiovascular: Regular rate, regular rhythm, 2+ bilateral radial pedal pulses Gastrointestinal: Soft, nontender, nondistended, positive bowel sounds Skin: Marked bruising to chin bilaterally, generalized pallor, non jaundice Musculoskeletal: No clubbing, cyanosis or edema Neurological: Alert and oriented to person, thought that the month was April in the year was 2000, no gross motor deficits noted on limited exam, no facial asymmetry Psychiatric: Pleasantly confused, cooperative : Incontinent of urine Hematologic/lymphatic: Bruising to face as discussed above, no petechiae, no anterior cervical lymphadenopathy Objective Data Vital Signs Vital Signs: Vital Signs - 24 hr 01/08/21 17:46 01/08/21 18:46 01/08/21 20:37 Temperature 36.2 C L Pulse Rate 74 66 112 H Respiratory Rate 18 13 20 Blood Pressure 165/80 H 151/73 H 159/107 H Pulse Oximetry 100 100 98 01/08/21 21:46 01/08/21 22:35 01/08/21 23:05 Temperature 37.2 C Pulse Rate 89 82 82 Respiratory Rate 16 16 14 Blood Pressure 151/59 H 124/56 L Pulse Oximetry 99 98 97 01/09/21 00:00 01/09/21 04:00 01/09/21 05:14 Temperature 36.3 C L Pulse Rate 104 H 81 84 Respiratory Rate 14 Blood Pressure 137/70 Pulse Oximetry 100 01/09/21 08:00 Temperature Pulse Rate 88 Respiratory Rate Blood Pressure Pulse Oximetry Intake/Output Intake/Output: Intake & Output 01/06/21 01/07/21 01/08/21 01/09/21 23:59 23:59 23:59 23:59 Intake Total 50 459
[2021-01-09] MEDS: LACTATED RINGERS 1,000 ML 75 ML IV CONT (11:22)
[2021-01-09] MEDS: INSULIN ASPART (*BKC) 100 UNITS/ML SUB-Q (11:23)
[2021-01-09 12:28] LABS: Glucose Point of Care 255 mg/dl (65-105)
[2021-01-09 17:18] LABS: Glucose Point of Care 166 mg/dl (65-105)
[2021-01-09] MEDS: ONDANSETRON INJ 4 MG/2 ML VIAL IV PUSH (18:00)
[2021-01-09 22:14] LABS: Glucose Point of Care 203 mg/dl (65-105)
[2021-01-10] VITALS: PULSE 58
[2021-01-10] MEDS: LACTATED RINGERS 1,000 ML 75 ML IV CONT (02:15)
[2021-01-10 04:00] VITALS: PULSE 62
[2021-01-10 06:00] VITALS: BP 119/71; PULSE 77; RESP 18; TEMP 36.3; O2SAT 99
[2021-01-10 07:47] LABS: Glucose Point of Care 139 mg/dl (65-105)
[2021-01-10 08:00] VITALS: PULSE 62
--- NOTE | 2021-01-10 09:37 | PM.DS ---
DS: Admitting Diagnosis Discharge Date 01/10/2021 Admitting Diagnosis 1. Bacteriuria, possible UTI 2. Fall History of diabetes and dementia. DS: Discharge Diagnosis Discharge Diagnosis (1) Bacteriuria with pyuria: Code(s): R82.71 - Bacteriuria; R82.81 - Pyuria Status: Acute Assessment and Plan: Patient has been placed on empiric antibiotic therapy with Rocephin. Urine cultures are pending. (2) Hyperkalemia: Code(s): E87.5 - Hyperkalemia Status: Acute Assessment and Plan: Resolved. 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 Will place on high-dose sliding scale insulin with Accu-Cheks a.c. HS and hypoglycemia protocol. Will check hemoglobin A1c with a.m. labs. Depending on A1c value may need to increase the patient's Lantus dose for more adequate glycemic control. (4) Fall: Qualifiers: Encounter type: initial encounter Qualified Code(s): W19.XXXA - Unspecified fall, initial encounter Code(s): W19.XXXA - Unspecified fall, initial encounter Status: Acute Assessment and Plan: Patient was more likely to fall due to bacteria and pyuria as well as significant hyperglycemia. Fall precautions. DS: Summary Hospital Course Reason for hospitalization: Fall Possible UTI History of diabetes and dementia Hospital Course: 75 years old female was admitted [facility] with complaints of having fall and possible UTI,patient was given IV antibiotics and culture were done. Patient did not have any complication during the stay in the hospital.patient urine culture shows mixed jose. Today patient is feeling better so patient is discharged back to [facility] stable condition. Time spent discussing smoking cessation with patient: 3 to 10 minutes Status at Discharge Cognitive/behavioral status at discharge: Back normal Overall status at discharge: patient is back to baseline Time Spent with Patient Time attestation: Total time spent providing and/or coordinating discharge services: Exam Narrative: PHYSICAL EXAM: WEIGHT 72.7 kg BMI 27.5 General: No acute distress, well-developed well-nourished HEENT: Poor dentition with multiple missing teeth, teeth rotted off at the gumline, remaining teeth are intact and are not loose, mucous membranes are tacky, laceration to the right lower lip, marked bruising to bilateral chin, pupils are equal and reactive, positive conjunctival pallor, no scleral icterus Respiratory: Clear to auscultation bilaterally, no increased work of breathing Cardiovascular: Regular rate, regular rhythm, 2+ bilateral radial pedal pulses Gastrointestinal: Soft, nontender, nondistended, positive bowel sounds Skin: Marked bruising to chin bilaterally, generalized pallor, non jaundice Musculoskeletal: No clubbing, cyanosis or edema Neurological: Alert and oriented to person, thought that the month was April in the year was 2000, no gross motor deficits noted on limited exam, no facial asymmetry Psychiatric: Pleasantly confused, cooperative : Incontinent of urine Hematologic/lymphatic: Bruising to face as discussed above, no petechiae, no anterior cervical lymphadenopathy DS: Data Data Completed and Pending Labs on day of discharge: Labs from last 24 hours 01/10/21 01/09/21 01/09/21 07:40 20:11 16:47 POC Capillary Glucose 139 H 203 H 166 H 01/09/21 11:20 POC Capillary Glucose 255 H Discharge Plan Discharge Attending physician on discharge: Slim Tello Discharging Clinician: Slim Tello Patient Disposition:
== END 2021-01-10 11:55 | DRG 690 ==
LOC: ANHED 20:44 → ANH3MED 21:44
PROVIDERS: Emergency Medicine; Admitting Provider Internal Medicine; Emergency Provider Emergency Medicine; PCP Internal Medicine; Visit Provider Internal Medicine
DX: N39.0 Urinary tract infection, site not specified (principal); R29.6 Repeated falls; F03.90 Unspecified dementia, unspecified severity, without behavioral disturbance, psychotic disturbance, mood disturbance, and anxiety; Z86.73 Personal history of transient ischemic attack (TIA), and cerebral infarction without residual deficits; F32.9 Major depressive disorder, single episode, unspecified; E11.42 Type 2 diabetes mellitus with diabetic polyneuropathy; Z79.4 Long term (current) use of insulin; G47.33 Obstructive sleep apnea (adult) (pediatric); N18.30 Chronic kidney disease, stage 3 unspecified; E11.22 Type 2 diabetes mellitus with diabetic chronic kidney disease; Z87.891 Personal history of nicotine dependence; F12.90 Cannabis use, unspecified, uncomplicated; E11.65 Type 2 diabetes mellitus with hyperglycemia; E87.5 Hyperkalemia
CPT/HCPCS: 36415; 51701; 70450; 70486; 71046; 72125; 80048; 80053; 81001; 82010; 82948; 83036; 85025; 87086; 87088; 93005; 96361; 96365; 96375; 97161; 99285; G0378; J0696; J1815; J2405; J7120

== ENCOUNTER 2021-02-04 17:15 | Emergency (ER) | payer MEDICARE, SELFPAY ==
--- NOTE | ~2021-02-04 | XR_ITS ---
EXAMINATION: XR chest 1V portable INDICATION: Cough TECHNIQUE: Portable AP chest at 2158 hours COMPARISON: 01/08/2021 FINDINGS: The lungs are free of acute opacities. There is no pleural effusion or pneumothorax. The ca rdiomediastinal silhouette is normal. The visualized bones and soft tissues are unremarkable. IMPRESSION: 1. No acute cardiopulmonary abnormality. Reviewed, dictated and finalized at location A.
[2021-02-04 17:31] VITALS: BP 131/84; PULSE 78; RESP 18; TEMP 36.8; O2SAT 97
--- NOTE | 2021-02-04 19:45 | PC.NURSE ---
Addendum entered by Kayla Bergeron RN 02/05/21 03:39: Bed alarm placed for pt safety Original Note: Pt A&O1, alert to self. Pt denies symptoms at this time, but reports she was vomiting all day yesterday. Pt follows commands and is able to be redirected.
[2021-02-04 20:06] VITALS: BP 157/84; PULSE 71; RESP 12; O2SAT 100
--- NOTE | 2021-02-04 21:08 | ED.GENADULT ---
HPI - General Adult General Chief complaint: Nausea/Vomiting/Diarrhea Stated complaint: Vomiting Time Seen by Provider: 02/04/21 19:40 Limitations: dementia History of Present Illness HPI narrative: Patient is a 75-year-old female presents the emergency department with chief complaint of nausea and vomiting. Patient is a resident of a local [place] [facility] and has history of dementia and is normally alert and oriented x1 [place] [facility] [place] the patient had a couple episodes of nausea and vomiting but has had no other complaints. Upon arrival to the emergency department the patient states that she threw up yesterday but feels fine now. The patient has no complaints of pain no complaints of shortness of breath no complaints of diarrhea. Related Data Allergies Allergy/AdvReac Type Severity Reaction Status Date / Time levofloxacin Allergy Unknown Verified 02/04/21 21:38 oxycodone Allergy Unknown Verified 02/04/21 21:38 Penicillins Allergy Unknown Verified 02/04/21 21:38 Review of Systems Review of Systems: A 10 system review of systems was completed on the patient and is negative except for what is stated in the HPI. Nursing and ancillary documentation was reviewed. Exam Narrative: GENERAL: Well-appearing, well-nourished, and in no acute distress. HEAD: Normocephalic, atraumatic. EYES: PERRLA and EOMI. ENT: Nares clear, no rhinorrhea or epistaxis. Mucous membranes moist. NECK: Supple. CHEST: Clear to auscultation. No respiratory distress. HEART: Regular rate and rhythm. No murmur heard. Normal peripheral pulses. ABDOMEN: Soft, nontender, nondistended, normal active bowel sounds. EXTREMITIES: Normal range of motion. No edema. SKIN: Warm, dry, no rash. NEURO: No focal deficits. Alert and oriented x1. PSYCH: Normal mood and affect. Course Vital Signs Vital signs: Vital Signs Temperature 36.8 C 02/04/21 17:31 Pulse Rate 78 02/04/21 17:31 Respiratory Rate 18 02/04/21 17:31 Blood Pressure 131/84 02/04/21 17:31 Pulse Oximetry 97 02/04/21 17:31 Temperature 36.8 C 02/04/21 17:31 Pulse Rate 64 02/04/21 21:41 Respiratory Rate 16 02/04/21 21:41 Blood Pressure 161/71 H 02/04/21 21:41 Pulse Oximetry 100 10/21/21 21:41 Medical Decision Making Vital Signs Vital Signs: Vital Signs Temperature 36.8 C 02/04/21 17:31 Pulse Rate 78 02/04/21 17:31 Respiratory Rate 18 02/04/21 17:31 Blood Pressure 131/84 02/04/21 17:31 Pulse Oximetry 97 02/04/21 17:31 Temperature 36.8 C 02/04/21 17:31 Pulse Rate 64 02/04/21 21:41 Respiratory Rate 16 02/04/21 21:41 Blood Pressure 161/71 H 02/04/21 21:41 Pulse Oximetry 100 02/04/21 21:41 Lab Data Result diagrams: 02/04/21 21:26 02/04/21 21:26 Labs: Lab Results 02/04/21 02/04/21 02/04/21 Range/Units 21:26 21:26 21:26 WBC 5.3 (4.5-10.0) K/mm3 RBC 3.32 L (4.2-5.4) M/mm3 Hgb 10.3 L (12.0-15.0) g/dL Hct 31.6 L (37.0-47.0) % MCV 95.2 (80-100) fl MCH 31.0 (26-34) pg MCHC 32.6 (32-36) g/dl RDW 12.9 (11.5-14.5) % Plt Count 200 (150-375) k/mm3 MPV 9.3 (7.4-10.4) fl Immature Gran % (Auto) 0.6 H (0-0.5) % Neut % (Auto) 43.4 L (45.5-73.1) % Lymph % (Auto) 46.7 H (18.3-44.2) % [place] % (Auto) 7.8 (2.6-8.5) % Eos % (Auto) 1.5 (0-4.4) % Baso % (Auto) 0.0 L (0.2-1.2) % Lymph # (Auto) 2.45 (0.9-3.2) K/mm3 [place] # (Auto) 0.4 (0.1-0.6) K/mm3 Eos # (Auto) 0.1 (0-0.3) K/mm3 Baso # (Auto) 0.0 (0.0-0.1) K/mm3 Abs Immat Gran (auto) 0.03 (0.00-0.031) K/mm3 Absolute Neuts (auto) 2.3 (1.3-6.7) K/mm3 Absolute Nucleated RBC 0.0 (0.0-0.012) K/mm3 Nucleated RBC % 0.0 (0.0-0.2) % Sodium 133 L (137-145) mmol/L Potassium 4.9 (3.4-5.0) mmol/L Chloride 99 (98-107) mmol/L Carbon Dioxide 30 (22-30) mmol/L Anion Gap 4 L (8-16) mmol/L BUN 15 (7-17) mg/dL Crea
[2021-02-04] MEDS: ONDANSETRON INJ 4 MG/2 ML VIAL IV PUSH (21:40)
[2021-02-04 21:41] VITALS: BP 161/71; PULSE 64; RESP 16; O2SAT 100
[2021-02-04 22:11] LABS: Alanine Aminotransferase 12 U/L (4-35); Alkaline Phosphatase 94 U/L (38-126); Anion Gap 4 mmol/L (8-16); Aspartate Amino Transferase 21 U/L (14-36); Bilirubin,Total 0.4 mg/dL (0.2-1.3); Blood Urea Nitrogen 15 mg/dL (7-17); Calcium 9.1 mg/dL (8.4-10.2); Carbon Dioxide 30 mmol/L (22-30); Chloride 99 mmol/L (98-107); Estimated CRCL calculation 34 ml/min; Estimated Glomerular Filt Rate 40; Glucose 208 mg/dL (65-110); Lipase 79 U/L (23-300); Potassium 4.9 mmol/L (3.4-5.0); Sodium 133 mmol/L (137-145)
[2021-02-04 22:15] LABS: Eosinophils Absolute Auto 0.1 K/mm3 (0-0.3); Eosinophils Percent Auto 1.5 % (0-4.4); Hematocrit 31.6 % (37.0-47.0); Hemoglobin 10.3 g/dL (12.0-15.0); Immature Granulocyte Absolute 0.03 K/mm3 (0.00-0.031); Immature Granulocyte Percent A 0.6 % (0-0.5); Lymphocytes Absolute Auto 2.45 K/mm3 (0.9-3.2); Lymphocytes Percent Auto 46.7 % (18.3-44.2); Mean Corpuscular HGB Conc 32.6 g/dl (32-36); Mean Corpuscular Volume 95.2 fl (80-100); Mean Platelet Volume 9.3 fl (7.4-10.4); Monocytes Absolute Auto 0.4 K/mm3 (0.1-0.6); Monocytes Percent Auto 7.8 % (2.6-8.5); Neutrophils Absolute Auto 2.3 K/mm3 (1.3-6.7); Neutrophils Percent Auto 43.4 % (45.5-73.1); Platelet Count Result 200 k/mm3 (150-375); Red Blood Count 3.32 M/mm3 (4.2-5.4); Red Cell Distribution Width 12.9 % (11.5-14.5); White Blood Count 5.3 K/mm3 (4.5-10.0)
[2021-02-04 22:32] LABS: Add Urine Microscopic? YES; Appearance Urine Cloudy (Clear); Bacteria Urine Trace /hpf; Bilirubin Urine Negative (Negative); Blood Urine 1+ (Negative); Color Urine Yellow (Yellow); Glucose Urine UA Negative (Negative); Ketones Urine Negative (Negative); Leukocyte Esterase Ur 3+ LEU/UL (Negative); Nitrate Urine Negative (Negative); Protein Urine 1+ mg/dL (Negative); Specific Grav Ur 1.008 (1.001-1.035); Squamous Epithelial Cell Urine Rare /hpf (Few); Urobilinogen Urine Negative mg/dL (<2.0); WBC Clumps Urine Present /HPF; WBC Urine >75 /hpf
[2021-02-04 23:04] VITALS: BP 144/77; PULSE 75; RESP 16; O2SAT 97
[2021-02-05 00:26] VITALS: BP 154/92; PULSE 65; RESP 16; O2SAT 100
--- NOTE | 2021-02-05 00:33 | PC.NURSE ---
EMS transport not available for hours; no contacts listed in demographics.
--- NOTE | 2021-02-05 00:49 | PC.NURSE ---
Addendum entered by Alexia Giles 02/05/21 04:17: 0415: Received updated ETA...approximately 0545 Addendum entered by Alexia Giles 02/05/21 03:15: 0313: Received updated ETA...approximately 0400 Original Note: Called [facility] for BLS return transport to [facility] (trip #[id number])...[id number]
[2021-02-05 03:10] LABS: Glucose Point of Care 155 mg/dl (65-105)
--- NOTE | 2021-02-05 06:15 | PC.NURSE ---
[facility] arrived to transport pt to facility. Report given to EMS. Pt A&Ox1 per baseline, upright on stretcher during transport out of ED.
== END 2021-02-05 06:15 ==
PROVIDERS: Emergency Provider Emergency Medicine
DX: N39.0 Urinary tract infection, site not specified (principal); R11.2 Nausea with vomiting, unspecified; F03.90 Unspecified dementia, unspecified severity, without behavioral disturbance, psychotic disturbance, mood disturbance, and anxiety
CPT/HCPCS: 36415; 51701; 71045; 80053; 81001; 82948; 83605; 83690; 85025; 87086; 96365; 96375; 99284; J0696; J2405

== ENCOUNTER 2021-05-04 19:54 | Emergency (ER) | payer MEDICARE, OTHER, SELFPAY ==
--- NOTE | ~2021-05-04 | XR_ITS ---
EXAMINATION: XR chest 2V DATE: 05/04/2021 20:36 INDICATION: Altered mental status. TECHNIQUE: Frontal and lateral views of the chest were obtained. COMPARISON: Chest single view 02/04/2021 FINDINGS: The chest demonstrates clear lungs without pneumonia, pleural effusion, or pneumothorax. Th e heart size is normal. There are changes of posterior fusion procedure in lumbar spine. IMPRESSION: 1. No acute cardiopulmonary disease. Reviewed, dictated and finalized at location A. ETIC TECHNICIAN
[2021-05-04 19:57] VITALS: BP 144/50; PULSE 88; RESP 14; TEMP 36.1; O2SAT 99
--- NOTE | 2021-05-04 20:09 | ECG_ITS ---
Measurements Intervals [place] Rate: 74 P: 80 NV: 186 QRS: -36 QRSD: 90 T: 55 QT: 408 QTc: 455 Interpretive Statements SINUS RHYTHM LEFT AXIS DEVIATION BORDERLINE R WAVE PROGRESSION, ANTERIOR LEADS BASELINE ARTIFACT- V1 BORDERLINE ECG Electronically Signed On 05-05-2021 6:37:37 FORM PRESSER by Denton Franks D.O.
--- NOTE | 2021-05-04 20:11 | PC.NURSE ---
ERP VRBO orange juice to correct low blood sugar
[2021-05-04 20:17] LABS: Glucose Point of Care 54 mg/dl (65-105)
[2021-05-04 21:31] VITALS: BP 126/71; PULSE 75; RESP 16; O2SAT 97
[2021-05-04 22:06] LABS: Basophils Percent Auto 0.3 % (0.2-1.2); Eosinophils Percent Auto 0.5 % (0-4.4); Hematocrit 31.6 % (37.0-47.0); Hemoglobin 10.2 g/dL (12.0-15.0); Immature Granulocyte Absolute 0.04 K/mm3 (0.00-0.031); Immature Granulocyte Percent A 0.5 % (0-0.5); Lymphocytes Percent Auto 18.8 % (18.3-44.2); Mean Corpuscular HGB Conc 32.3 g/dl (32-36); Mean Corpuscular Hemoglobin 31.6 pg (26-34); Mean Corpuscular Volume 97.8 fl (80-100); Mean Platelet Volume 9.6 fl (7.4-10.4); Monocytes Absolute Auto 0.7 K/mm3 (0.1-0.6); Neutrophils Absolute Auto 5.7 K/mm3 (1.3-6.7); Neutrophils Percent Auto 70.9 % (45.5-73.1); Platelet Count Result 161 k/mm3 (150-375); Red Blood Count 3.23 M/mm3 (4.2-5.4); Red Cell Distribution Width 13.3 % (11.5-14.5)
[2021-05-04 22:17] LABS: Alanine Aminotransferase 12 U/L (4-35); Albumin Level 3.8 g/dL (3.5-5.1); Alkaline Phosphatase 85 U/L (38-126); Anion Gap 8 mmol/L (8-16); Aspartate Amino Transferase 21 U/L (14-36); Bilirubin,Total 0.2 mg/dL (0.2-1.3); Blood Urea Nitrogen 19 mg/dL (7-17); Calcium 8.9 mg/dL (8.4-10.2); Carbon Dioxide 25 mmol/L (22-30); Chloride 101 mmol/L (98-107); Estimated Glomerular Filt Rate 40; Glucose 87 mg/dL (65-110); Potassium 4.1 mmol/L (3.4-5.0); Sodium 134 mmol/L (137-145)
[2021-05-04 22:21] LABS: Add Urine Microscopic? YES; Appearance Urine Clear (Clear); Bacteria Urine Trace /hpf; Bilirubin Urine Negative (Negative); Blood Urine Negative (Negative); Color Urine Straw (Yellow); Glucose Urine UA Negative (Negative); Ketones Urine Negative (Negative); Leukocyte Esterase Ur Trace LEU/UL (Negative); Nitrate Urine Negative (Negative); Protein Urine Negative (Negative); RBC Urine 0-2 /hpf (0-2); Specific Grav Ur 1.005 (1.001-1.035); Squamous Epithelial Cell Urine Rare /hpf (Few); Transitional Epi Cells Urine Rare /hpf (None Seen); Urobilinogen Urine Negative mg/dL (<2.0); WBC Urine 0-3 /hpf
--- NOTE | 2021-05-04 22:48 | ED.GENADULT ---
HPI - General Adult General Chief complaint: Altered Mental Status Stated complaint: AMS AFTER LOW BS Time Seen by Provider: 05/04/21 20:03 History of Present Illness HPI narrative: Patient is 75-year-old female who presents the ER with altered mental status from her senior living. Patient found to have a low blood sugar and received D10 by EMS. Upon arrival here patient is more awake and blood sugar still 54. She is oriented x2. She has no reports of pain or discomfort. Patient is unsure why she is here. There is no documentation of dementia and patient is unsure if she has dementia or not. Chart review shows patient does have history of dementia. Related Data Home Medications Medication Instructions Recorded Confirmed aspirin 81 mg PO DAILY 09/29/19 01/08/21 mirtazapine 7.5 mg PO HS 09/29/19 01/08/21 omeprazole 20 mg PO HS 09/29/19 01/08/21 Glucagon Emergency Kit (human) 1 mg IV PRN PRN 12/30/20 01/08/21 duloxetine 30 mg PO DAILY 12/30/20 01/08/21 insulin lispro protamin-lispro 10 unit SUBCUT BID PRN 12/30/20 01/08/21 [Humalog Mix 75-25 KwikPen] insulin glargine 20 unit SUBCUT BID 01/08/21 01/08/21 Allergies Allergy/AdvReac Type Severity Reaction Status Date / Time levofloxacin Allergy Unknown Unknown Verified 01/08/21 22:58 oxycodone Allergy Unknown Unknown Verified 01/08/21 22:58 Penicillins Allergy Unknown Unknown Verified 01/08/21 22:58 Review of Systems Review of Systems: ROS unobtainable: Yes unobtainable due to medical condition [facility] Past Medical History Medical History (Updated 05/05/21 @ 00:41 by Rob Jones MD) Anemia With history of blood transfusion with GI bleed in December 2018. Cerebrovascular accident Old infarcts in the right parietal and occipital lobe noted on brain CT on 09/29/2019. Chronic kidney disease, stage 3 Baseline creatinine is around 1.4 to 1.60. Dementia Depression Diabetic peripheral neuropathy GI bleed (~12/2018) Secondary to large duodenal ulcer. Insulin dependent type 2 diabetes mellitus Obstructive sleep apnea Patient states she no longer uses a CPAP. Surgical History Surgical History (Updated 09/24/21 @ 20:39 by Winnie Lemons DO) History of cataract extraction History of esophagogastroduodenoscopy (EGD) (12/2018) Family History Family History Father Acute myocardial infarction Hypertension Mother Acute myocardial infarction Sibling Congestive heart failure Hypertension Social History Social History Social History: The patient is a resident at [facility]. She never and has no children. Previously worked with [employer]. Her sister, Brooke, is her healthcare power of wood scrap handler and she is listed as a full code. She is a former smoker but cannot provide me any further specifics. She smokes marijuana on occasion. She denies alcohol use. Smoking packs per day: 2 Smoking cigarettes per day: 40.0 Years smoked: 20 Smoking pack-years: 40.00 Smoking status: Former smoker Tobacco type: cigarettes Alcohol intake: current Drinks per week: 5 Substance use: current Substance use type: marijuana Last use: about a week ago Gender identity (if verbalized by the patient): Female Spiritual care concerns: No Exam Narrative: GENERAL: Well-appearing, well-nourished, and in no acute distress. HEAD: Normocephalic, atraumatic. EYES: PERRL and EOMI. ENT: Mucous membranes moist. CHEST: Clear to auscultation. No respiratory distress. HEART: Regular rate and rhythm. Normal peripheral pulses. ABDOMEN: Soft, nontender, nondistended. EXTREMITIES: Normal range of motion. No edema. SKIN: Warm, dry, no rash. NEURO: No focal deficits. Alert and oriented x2. Course Course Emergency Course: Patient resting comfortably. Has been able to eat food. Blood sugar normalized and steady. Discha
[2021-05-04 23:19] VITALS: BP 147/59; PULSE 86; RESP 15; O2SAT 99
[2021-05-04 23:40] LABS: Glucose Point of Care 109 mg/dl (65-105)
--- NOTE | 2021-05-04 23:40 | PC.NURSE ---
BS 109
[2021-05-05 00:46] VITALS: BP 146/56; PULSE 79; RESP 14; O2SAT 96
[2021-05-05 00:51] VITALS: BP 146/56; PULSE 73; RESP 12; O2SAT 100
--- NOTE | 2021-05-05 00:52 | PC.NURSE ---
called [facility] to request transport. ETA [phone]
--- NOTE | 2021-05-05 01:30 | PC.NURSE ---
[facility] called with and ETA of [id number]
--- NOTE | 2021-05-05 02:41 | PC.NURSE ---
[facility] here.
== END 2021-05-05 02:49 ==
PROVIDERS: Emergency Provider Emergency Medicine; PCP Internal Medicine
DX: E11.649 Type 2 diabetes mellitus with hypoglycemia without coma (principal); E11.22 Type 2 diabetes mellitus with diabetic chronic kidney disease; N18.30 Chronic kidney disease, stage 3 unspecified; E11.42 Type 2 diabetes mellitus with diabetic polyneuropathy; F03.90 Unspecified dementia, unspecified severity, without behavioral disturbance, psychotic disturbance, mood disturbance, and anxiety; G47.33 Obstructive sleep apnea (adult) (pediatric); D64.9 Anemia, unspecified; Z86.73 Personal history of transient ischemic attack (TIA), and cerebral infarction without residual deficits; Z79.4 Long term (current) use of insulin; Z79.82 Long term (current) use of aspirin; Z98.49 Cataract extraction status, unspecified eye; Z87.891 Personal history of nicotine dependence
CPT/HCPCS: 36415; 51701; 71046; 80053; 81001; 82948; 85025; 93005; 99283

== ENCOUNTER 2021-07-08 21:37 | Emergency (ER) | payer MEDICARE, OTHER, SELFPAY ==
--- NOTE | ~2021-07-08 | CT_ITS ---
EXAMINATION: CT cervical spine wo con EXAM DATE: 07/08/2021 23:20 INDICATION: Fall, head injury, dementia. TECHNIQUE: Spiral CT of the cervical spine was performed without contrast. Axial images were reviewe d. Coronal and sagittal reformatted images cervical spine were also reviewed. The dose-length produc t (DLP) for this examination was 161.67 mGy-cm. The exposure was tailored according to patient size (auto mA exposure control), and iterative reconstruction (ASIR) was used as additional dose reduction technique. There is no prior study for comparison. FINDINGS: There is no evidence of acute cervical fracture. The odontoid process is intact. Pre-dens space is normal. Prevertebral soft tissue is normal. There are no soft tissue abnormalities identi fied. There is no disc space widening or traumatic vertebral body subluxation suspected. There is m ild to moderate disc disease, some significant mid cervical neural foraminal stenosis. Advanced left- sided facet arthropathy. Chronic appearing sphenoid mucoperiosteal thickening. A detailed level by le jayla evaluation of spondylosis can be added as addendum if requested. IMPRESSION: 1. No acute cervical fracture. 2. Cervical spondylosis. Reviewed, dictated and finalized at location G.
--- NOTE | ~2021-07-08 | CT_ITS ---
EXAMINATION: CT brain wo [facility] EXAM DATE: 07/08/2021 23:19 INDICATION: Fall, dementia. Head injury. TECHNIQUE: Spiral CT of the head was performed without contrast. Axial, coronal and sagittal images were reviewed. The dose-length product (DLP) for this examination was 605.33 mGy-cm. The exposure w as tailored according to patient size, and iterative reconstruction (ASIR) was used as additional dos e reduction technique. Comparison is made to prior examination from 01/08/2021. FINDINGS: There is no acute intraparenchymal hemorrhage. No evidence of intraparenchymal brain mass lesion. No evidence of acute infarction. Please note that initial head CT has limited sensitivity f or small or acute infarctions. Old small to moderate right frontoparietal region infarction. There is moderate to severe periventricular and subcortical hypodensity, nonspecific but probably related t o small vessel ischemic disease. There is ventricular prominence out of proportion to sulci, centra l atrophy versus normal pressure hydrocephalus (clinical triad ataxia/gait disturbance, dementia, uri nary incontinence). There is intracranial carotid arteriosclerosis. There are no extra-axial colle ctions. There is no mass effect or midline shift. The orbits are unremarkable. Soft tissue is unre markable. The visualized sinuses and mastoid air cells are well aerated. There is no significant i nterval change. IMPRESSION: 1. No acute intracranial findings. 2. Dilated ventricles unchanged, Central atrophy vs NPH. 3. Microangiopathy. 4. Old right frontoparietal infarction unchanged. Reviewed, dictated and finalized at location G.
[2021-07-08 21:46] VITALS: BP 147/94; PULSE 81; RESP 18; TEMP 36.7; O2SAT 96
--- NOTE | 2021-07-08 22:47 | ED.GENADULT ---
HPI - General Adult General Chief complaint: Fall Stated complaint: FALL Time Seen by Provider: 07/08/21 21:51 Source: patient Mode of arrival: EMS Limitations: dementia History of Present Illness HPI narrative: Patient is a 75-year-old female who presents to the ED, via EMS, with report of a fall. Patient is a resident of [facility]. Per usp report, patient possibly had a unwitnessed fall today. She was reportedly found by staff members sitting on the ground. No apparent injuries. Patient has a history of dementia and is unable to describe exactly what happened today. She does think she did fall trying to go from her bedroom to her bathroom. She does not know if she hit her head. She does not think she lost consciousness. Patient reports having diarrhea today. She denies having any diarrhea yesterday. She has had 2 episodes of diarrhea in the ED since arrival. Patient has no complaints at this time. No abdominal pain nausea vomiting chest pain shortness of breath headache back pain or other pain urinary symptoms. Patient takes an aspirin 81 mg daily but no other blood thinners. Related Data Home Medications Medication Instructions Recorded Confirmed aspirin 81 mg PO DAILY 09/29/19 01/08/21 mirtazapine 7.5 mg PO HS 09/29/19 01/08/21 omeprazole 20 mg PO HS 09/29/19 01/08/21 Glucagon Emergency Kit (human) 1 mg IV PRN PRN 12/30/20 01/08/21 duloxetine 30 mg PO DAILY 12/30/20 01/08/21 insulin lispro protamin-lispro 10 unit SUBCUT BID PRN 12/30/20 01/08/21 [Humalog Mix 75-25 KwikPen] insulin glargine 20 unit SUBCUT BID 01/08/21 01/08/21 Allergies Allergy/AdvReac Type Severity Reaction Status Date / Time levofloxacin Allergy Unknown Unknown Verified 07/08/21 21:53 oxycodone Allergy Unknown Unknown Verified 07/08/21 21:53 Penicillins Allergy Unknown Unknown Verified 07/08/21 21:53 Review of Systems Review of Systems: CONSTITUTIONAL: Denies fever. GASTROINTESTINAL: Reports diarrhea. Denies abdominal pain, nausea, vomiting. GENITOURINARY: Denies dysuria or hematuria. MUSCULOSKELETAL: Denies back pain, joint pain. NEUROLOGIC: Denies headache, numbness, or weakness. ROS unobtainable: Yes unobtainable due to mental status PMFSH Past Medical History Medical History Anemia With history of blood transfusion with GI bleed in December 2018. Cerebrovascular accident Old infarcts in the right parietal and occipital lobe noted on brain CT on 09/29/2019. Chronic kidney disease, stage 3 Baseline creatinine is around 1.4 to 1.60. Dementia Depression Diabetic peripheral neuropathy GI bleed (~12/2018) Secondary to large duodenal ulcer. Insulin dependent type 2 diabetes mellitus Obstructive sleep apnea Patient states she no longer uses a CPAP. Surgical History Surgical History History of cataract extraction History of esophagogastroduodenoscopy (EGD) (12/2018) Family History Family History Father Acute myocardial infarction Hypertension Mother Acute myocardial infarction Sibling Congestive heart failure Hypertension Social History Social History Social History: The patient is a resident at [facility]. She never and has no children. 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 Her sister, Brooke, is her healthcare power of resident programs assistant and she is listed as a full code. She is a former smoker but cannot provide me any further specifics. She smokes marijuana on occasion. She denies alcohol use. Smoking packs per day: 2 Smoking cigarettes per day: 40.0 Years smoked: 20 Smoking pack-years: 40.00 Smoking status: Former smoker Tobacco type: cigarettes Alcohol intake: current Drinks per week: 5 Substance use: current Substance use type: marijua
--- NOTE | 2021-07-08 23:02 | ECG_ITS ---
Measurements Intervals [place] Rate: 80 P: 68 [place]: 150 QRS: -15 QRSD: 85 T: 79 QT: 381 QTc: 441 Interpretive Statements SINUS RHYTHM LOW QRS VOLTAGE IN PRECORDIAL LEADS [QRS DEFLECTION < 1.0 mV IN CHEST LEADS] NONSPECIFIC T-WAVE ABNORMALITY ABNORMAL ECG COMPARED TO ECG 05/04/2021 21:29:59 T-WAVE ABNORMALITY NOW PRESENT Electronically Signed On 07-09-2021 16:16:53 CDT by James Wilson M.D.
--- NOTE | 2021-07-08 23:14 | PC.NURSE ---
Pt to CT scan via stretcher at this time.
[2021-07-08 23:38] LABS: Eosinophils Absolute Auto 0.1 K/mm3 (0-0.3); Eosinophils Percent Auto 1.6 % (0-4.4); Hematocrit 31.9 % (37.0-47.0); Hemoglobin 10.4 g/dL (12.0-15.0); Immature Granulocyte Absolute 0.02 K/mm3 (0.00-0.031); Immature Granulocyte Percent A 0.3 % (0-0.5); Lymphocytes Absolute Auto 1.72 K/mm3 (0.9-3.2); Lymphocytes Percent Auto 27.6 % (18.3-44.2); Mean Corpuscular HGB Conc 32.6 g/dl (32-36); Mean Corpuscular Hemoglobin 31.5 pg (26-34); Mean Corpuscular Volume 96.7 fl (80-100); Monocytes Absolute Auto 0.4 K/mm3 (0.1-0.6); Monocytes Percent Auto 6.3 % (2.6-8.5); Neutrophils Percent Auto 64.2 % (45.5-73.1); Platelet Count Result 214 k/mm3 (150-375); Red Cell Distribution Width 13.6 % (11.5-14.5); White Blood Count 6.2 K/mm3 (4.5-10.0)
[2021-07-08 23:43] VITALS: BP 130/80; PULSE 73; RESP 21; O2SAT 98
[2021-07-08 23:54] LABS: Alanine Aminotransferase 9 U/L (4-35); Albumin Level 4.1 g/dL (3.5-5.1); Alkaline Phosphatase 95 U/L (38-126); Anion Gap 5 mmol/L (8-16); Aspartate Amino Transferase 23 U/L (14-36); Bilirubin,Total 0.4 mg/dL (0.2-1.3); Blood Urea Nitrogen 19 mg/dL (7-17); Calcium 8.8 mg/dL (8.4-10.2); Carbon Dioxide 27 mmol/L (22-30); Chloride 105 mmol/L (98-107); Estimated CRCL calculation 27 ml/min; Estimated Glomerular Filt Rate 37; Glucose 155 mg/dL (65-110); Lipase 74 U/L (23-300); Potassium 4.3 mmol/L (3.4-5.0); Sodium 137 mmol/L (137-145)
[2021-07-09 00:07] LABS: Add Urine Microscopic? YES; Appearance Urine Cloudy (Clear); Bacteria Urine 2+ /hpf; Bilirubin Urine Negative (Negative); Color Urine Amber (Yellow); Glucose Urine UA 2+ mg/dL (Negative); Ketones Urine Negative (Negative); Leukocyte Esterase Ur 3+ LEU/UL (Negative); Nitrate Urine Positive (Negative); Protein Urine 2+ mg/dL (Negative); Specific Grav Ur 1.019 (1.001-1.035); Squamous Epithelial Cell Urine Many /hpf (Few); Urobilinogen Urine Negative mg/dL (<2.0); WBC Urine >75 /hpf
[2021-07-09 00:11] LABS: Blood Urine Negative (Negative)
[2021-07-09 01:02] LABS: Glucose Point of Care 151 mg/dl (65-105)
[2021-07-09 01:07] VITALS: BP 111/81; PULSE 99; RESP 20; O2SAT 95
[2021-07-09 02:28] VITALS: BP 126/65; PULSE 86; RESP 20; O2SAT 95
--- NOTE | 2021-07-09 02:59 | PC.NURSE ---
Yeseniat attempts made for [facility] for pt to return to facility and give nurse to nurse report. Phone number listed on pt records from facility is no longer in service with no alt number to call. Per web/online 2 other phone numbers attempted w/out success. This RN then called pt contact (sibling) with no answer and no prompt to leave VM.
[2021-07-09 03:01] VITALS: BP 126/65; PULSE 81; RESP 18; O2SAT 99
== END 2021-07-09 03:45 ==
PROVIDERS: Physician Assistant; Emergency Provider Emergency Medicine; PCP Internal Medicine
DX: N30.00 Acute cystitis without hematuria (principal); E11.22 Type 2 diabetes mellitus with diabetic chronic kidney disease; N18.30 Chronic kidney disease, stage 3 unspecified; F03.90 Unspecified dementia, unspecified severity, without behavioral disturbance, psychotic disturbance, mood disturbance, and anxiety; D64.9 Anemia, unspecified; G47.33 Obstructive sleep apnea (adult) (pediatric); Z86.73 Personal history of transient ischemic attack (TIA), and cerebral infarction without residual deficits; Z79.82 Long term (current) use of aspirin; Z79.4 Long term (current) use of insulin; Z98.49 Cataract extraction status, unspecified eye; Z87.891 Personal history of nicotine dependence; M47.812 Spondylosis without myelopathy or radiculopathy, cervical region; R94.31 Abnormal electrocardiogram [ECG] [EKG]
CPT/HCPCS: 36415; 51701; 70450; 72125; 80053; 81001; 82948; 83690; 85025; 87077; 87086; 87186; 93005; 96365; 99284; J0696

== ENCOUNTER 2021-10-15 12:18 | Inpatient (IN) | payer MEDICARE, OTHER, SELFPAY ==
[2021-10-15] VITALS (34 sets, daily range): BP systolic 116–160; BP diastolic 60–126; PULSE 53–128; RESP 11–22; TEMP 36.4–37.4; O2SAT 98–100; BMI 20.7
--- NOTE | ~2021-10-15 | XR_ITS ---
EXAMINATION: XR chest 1V portable 10/15/2021 13:34 INDICATION: Weakness. Dyspnea. PROCEDURE: AP portable chest COMPARISON: Comparison to multiple prior studies sequentially, with oldest reviewed study dated 12/30. FINDINGS: The lungs are clear. The cardiomediastinal silhouette is within normal limits. There are no pleural effusions. There is no pneumothorax suspected. IMPRESSION: 1: NO ACUTE CARDIOPULMONARY DISEASE. Reviewed, dictated and finalized at location A.
--- NOTE | 2021-10-15 12:56 | ECG_ITS ---
Measurements Intervals [place] Rate: 124 P: [place]: 0 QRS: -35 QRSD: 69 T: -17 QT: 328 QTc: 471 Interpretive Statements SINUS TACHYCARDIA SUPRAVENTRICULAR BIGEMINY LOW QRS VOLTAGE IN PRECORDIAL LEADS CANNOT RULE OUT SEPTAL INFARCT, AGE INDETERMINATE CONSIDER INFERIOR INFARCT, AGE INDETERMINATE BORDERLINE ST-T WAVE ABNORMALITY- ANTEROLAT/HIGH LAT LEADS BASELINE ARTIFACT- I, II, AVR, AVL, V2 ABNORMAL ECG Electronically Signed On 10-15-2021 15:53:03 CDT by Denton Franks D.O.
[2021-10-15 13:12] LABS: Basophils Percent Auto 0.1 % (0.2-1.2); Eosinophils Percent Auto 0.1 % (0-4.4); Hematocrit 32.8 % (37.0-47.0); Hemoglobin 10.5 g/dL (12.0-15.0); Immature Granulocyte Absolute 0.03 K/mm3 (0.00-0.031); Immature Granulocyte Percent A 0.4 % (0-0.5); Lymphocytes Absolute Auto 0.98 K/mm3 (0.9-3.2); Lymphocytes Percent Auto 12.5 % (18.3-44.2); Mean Corpuscular Hemoglobin 31.2 pg (26-34); Mean Corpuscular Volume 97.3 fl (80-100); Mean Platelet Volume 9.3 fl (7.4-10.4); Monocytes Absolute Auto 0.5 K/mm3 (0.1-0.6); Monocytes Percent Auto 5.7 % (2.6-8.5); Neutrophils Absolute Auto 6.4 K/mm3 (1.3-6.7); Neutrophils Percent Auto 81.2 % (45.5-73.1); Platelet Count Result 180 k/mm3 (150-375); Red Blood Count 3.37 M/mm3 (4.2-5.4); Red Cell Distribution Width 14.4 % (11.5-14.5); White Blood Count 7.8 K/mm3 (4.5-10.0)
[2021-10-15 13:23] LABS: Alanine Aminotransferase 8 U/L (6-35); Albumin Level 3.7 g/dL (3.5-5.1); Alkaline Phosphatase 65 U/L (38-126); Anion Gap 11 mmol/L (8-16); Aspartate Amino Transferase 19 U/L (14-36); Bilirubin,Total 0.6 mg/dL (0.2-1.3); Blood Urea Nitrogen 19 mg/dL (7-17); Calcium 8.6 mg/dL (8.4-10.2); Carbon Dioxide 20 mmol/L (22-30); Chloride 104 mmol/L (98-107); Estimated CRCL calculation 26 ml/min; Estimated Glomerular Filt Rate 40; Glucose 111 mg/dL (65-110); Potassium 4.6 mmol/L (3.4-5.0); Sodium 135 mmol/L (137-145)
[2021-10-15] MEDS: SODIUM CHLORIDE 0.9% IV 1,000 ML 999 ML IV CONT ×2 (13:39→17:43)
--- NOTE | 2021-10-15 14:30 | PC.NURSE ---
pt trying to get out of bed. states needs to get out of here. pt verbally abusive to staff. pt redirected.
[2021-10-15] MEDS: ONDANSETRON INJ 4 MG/2 ML VIAL IV PUSH (17:26)
[2021-10-15 17:32] LABS: Appearance Urine Clear (Clear); Bilirubin Urine Negative (Negative); Blood Urine 2+ (Negative); Color Urine Yellow (Yellow); Glucose Urine UA Negative (Negative); Ketones Urine Negative (Negative); Leukocyte Esterase Ur 2+ LEU/UL (Negative); Nitrate Urine Positive (Negative); Protein Urine Trace mg/dL (Negative); Urobilinogen Urine 0.2 mg/dL (<2.0)
--- NOTE | 2021-10-15 17:43 | ED.GENADULT ---
HPI - General Adult General Chief complaint: Altered Mental Status Stated complaint: ams and lethargic x 4-5 days Time Seen by Provider: 10/15/21 12:47 History of Present Illness HPI narrative: Patient is a 76-year-old female who presents to the ER with reports of weakness. Patient has dementia and cannot give a history. According to patient's visitor she went to visit the patient for her birthday. The patient was acting more confused and fatigued than typical and asking for help so she asked for the patient come to the hospital. Patient has a new rash to her face that she did not have 5 days ago. Patient is awake and alert but somewhat hostile in regards to answering questions. Related Data Home Medications Medication Instructions Recorded Confirmed aspirin 81 mg tablet,delayed 81 mg PO DAILY 09/29/19 01/08/21 release omeprazole 20 mg capsule,delayed 20 mg PO HS 09/29/19 01/08/21 release duloxetine 30 mg capsule,delayed 30 mg PO DAILY 12/30/20 01/08/21 release glucagon 1 mg solution for 1 mg IV PRN PRN Hypoglycemia 12/30/20 01/08/21 injection (Glucagon Emergency Kit) insulin glargine 100 unit/mL 14 unit subcut DAILY 01/08/21 01/08/21 subcutaneous solution emollient combination no.114 applic topical 10/15/21 (Eucerin Advanced Repair topical cream) insulin aspart U-100 100 unit/mL 10 unit subcut TID 10/15/21 subcutaneous solution (Novolog U-100 Insulin aspart) memantine 10 mg tablet 10 mg PO BID 10/15/21 ondansetron 4 mg disintegrating 4 mg PO Q8H PRN Vomiting 10/15/21 tablet sertraline 25 mg tablet 25 mg PO DAILY 10/15/21 Allergies Allergy/AdvReac Type Severity Reaction Status Date / Time levofloxacin Allergy Unknown Unknown Verified 10/15/21 12:52 oxycodone Allergy Unknown Unknown Verified 10/15/21 12:52 Penicillins Allergy Unknown Unknown Verified 10/15/21 12:52 Review of Systems Review of Systems: ROS unobtainable: Yes unobtainable due to mental status PMFSH Past Medical History Medical History Anemia With history of blood transfusion with GI bleed in December 2018. Cerebrovascular accident Old infarcts in the right parietal and occipital lobe noted on brain CT on 09/29/2019. Chronic kidney disease, stage 3 Baseline creatinine is around 1.4 to 1.60. Dementia Depression Diabetic peripheral neuropathy GI bleed (~12/2018) Secondary to large duodenal ulcer. Insulin dependent type 2 diabetes mellitus Obstructive sleep apnea Patient states she no longer uses a CPAP. Surgical History Surgical History History of cataract extraction History of esophagogastroduodenoscopy (EGD) (12/2018) Family History Family History Father Acute myocardial infarction Hypertension Mother Acute myocardial infarction Sibling Congestive heart failure Hypertension Social History Social History Social History: The patient is a resident at [facility]. She never and has no children. 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 Her sister, Brooke, is her healthcare power of divorce attorney and she is listed as a full code. She is a former smoker but cannot provide me any further specifics. She smokes marijuana on occasion. She denies alcohol use. Smoking packs per day: 2 Smoking cigarettes per day: 40.0 Years smoked: 20 Smoking pack-years: 40.00 Smoking status: Former smoker Tobacco type: cigarettes Alcohol intake: current Drinks per week: 5 Substance use: current Substance use type: marijuana Last use: about a week ago Gender identity (if verbalized by the patient): Female Spiritual care concerns: No Exam Narrative: GENERAL: Well-appearing, well-nourished, and in no acute distress. HEAD: Normocephalic, atraumatic. EYES: P
[2021-10-15 17:49] LABS: Bacteria Urine Trace /hpf; RBC Urine 21-50 /hpf (0-2); Squamous Epithelial Cell Urine Many /hpf (Few); WBC Urine >75 /hpf
[2021-10-15 17:54] LABS: Add Urine Microscopic? YES
[2021-10-15] MEDS: dilTIAZem HCl INJ 25 MG/5 ML VIAL 10 MG IV PUSH (17:54)
--- NOTE | 2021-10-15 19:56 | PC.NURSE ---
Assuming care of pt.
--- NOTE | 2021-10-15 20:00 | PM.IMHP ---
H&P: HPI History of Present Illness Date/Time: Patient was placed observation status for expected length of stay less than 23 hours for management, will plan to re-evaluate tomorrow for improvement. 10/15/21 20:00 Chief Complaint: Altered mental status Narrative: Ms. Lopez is a 74-year-old female who presented emergency room for lethargy and increased altered mental status. Patient has a known history of dementia, but over the last 2 days the [facility] care facility states that patient has been more altered and somewhat lethargic. Patient's friend went to visitor at the [facility] today because it is the patient's birthday and she noticed that the patient was complaining of full body pain. She also noticed the patient had a rash to her forehead that was not there approximately 5-6 days ago. Upon evaluation in emergency room patient was very combative with staff and yelling and hitting the staff. Patient does state her entire body hurts. Upon evaluation in emergency room patient was noted have a urinary tract infection and shingles to her right forehead and hairline. Patient has a known history of dementia, diabetes mellitus, chronic kidney disease, anemia, and CVA. Review of Systems Review of Systems: I am able to obtain a full review of systems secondary to patient's underlying dementia and confusion. [facility] Past Medical History Medical History Anemia With history of blood transfusion with GI bleed in December 2018. Cerebrovascular accident Old infarcts in the right parietal and occipital lobe noted on brain CT on 09/29/2019. Chronic kidney disease, stage 3 Baseline creatinine is around 1.4 to 1.60. Dementia Depression Diabetic peripheral neuropathy GI bleed (~12/2018) Secondary to large duodenal ulcer. Insulin dependent type 2 diabetes mellitus Obstructive sleep apnea Patient states she no longer uses a CPAP. Surgical History Surgical History History of cataract extraction History of esophagogastroduodenoscopy (EGD) (12/2018) Family History Family History Father Acute myocardial infarction Hypertension Mother Acute myocardial infarction Sibling Congestive heart failure Hypertension Social History Social History Social History: The patient is a resident at [facility]. She never and has no children. 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 She is a former smoker but cannot provide me any further specifics. She smokes marijuana on occasion. She denies alcohol use. Smoking packs per day: 2 Smoking cigarettes per day: 40.0 Years smoked: 20 Smoking pack-years: 40.00 Smoking status: Former smoker Tobacco type: cigarettes Alcohol intake: current Drinks per week: 5 Substance use: current Substance use type: marijuana Last use: about a week ago Gender identity (if verbalized by the patient): Female Spiritual care concerns: No Meds Home Medications and Allergies Home Medications Medication Instructions Recorded Confirmed Type aspirin 81 mg tablet,delayed 81 mg PO DAILY 09/29/19 01/08/21 History release omeprazole 20 mg capsule,delayed 20 mg PO HS 09/29/19 01/08/21 History release atorvastatin 40 mg tablet 40 mg PO DAILY 30 days #30 tabs 10/02/19 01/08/21 Rx duloxetine 30 mg capsule,delayed 30 mg PO DAILY 12/30/20 01/08/21 History release glucagon 1 mg solution for 1 mg IV PRN PRN Hypoglycemia 12/30/20 01/08/21 History injection (Glucagon Emergency Kit) insulin glargine 100 unit/mL 14 unit subcut DAILY 01/08/21 01/08/21 History subcutaneous solution emollient combination no.114 applic topical 10/15/21 Histo
--- NOTE | 2021-10-15 21:28 | ADMGEN ---
This patient, Kari Lopez, was admitted to Medical Room 340-01. Patient/family oriented to hospital policies and general routines including ID bracelet, bed and alarms, visiting hours, pain management, procedures, bathroom and other care routines, personal items, smoking policy, room service/diet, and visiting hours. Information on how to activate the Rapid Response Team has been discussed. Patient/Family are encouraged to report perceived risks to care and to ask questions if they do not understand what they are told or what they should do.
[2021-10-15 23:03] LABS: Glucose Point of Care 93 mg/dl (65-105)
[2021-10-16] VITALS (10 sets, daily range): BP systolic 108–156; BP diastolic 43–67; PULSE 62–122; RESP 14–18; TEMP 36.6; O2SAT 97–99
[2021-10-16] MEDS: ACYCLOVIR 400 MG TABLET 800 MG PO ×6 (00:18→20:20)
[2021-10-16] MEDS: dilTIAZem HCL 30 MG TABLET PO (01:54)
[2021-10-16] MEDS: diphenhydrAMINE HCl INJ 50 MG/ML VIAL 25 MG IV PUSH (01:54)
[2021-10-16 07:54] LABS: Glucose Point of Care 53 mg/dl (65-105)
[2021-10-16 08:13] LABS: Basophils Percent Auto 0.2 % (0.2-1.2); Eosinophils Absolute Auto 0.1 K/mm3 (0-0.3); Eosinophils Percent Auto 2.1 % (0-4.4); Hematocrit 29.4 % (37.0-47.0); Hemoglobin 9.4 g/dL (12.0-15.0); Immature Granulocyte Absolute 0.02 K/mm3 (0.00-0.031); Immature Granulocyte Percent A 0.4 % (0-0.5); Lymphocytes Absolute Auto 1.06 K/mm3 (0.9-3.2); Lymphocytes Percent Auto 18.6 % (18.3-44.2); Mean Corpuscular Hemoglobin 30.7 pg (26-34); Mean Corpuscular Volume 96.1 fl (80-100); Mean Platelet Volume 9.2 fl (7.4-10.4); Monocytes Absolute Auto 0.3 K/mm3 (0.1-0.6); Monocytes Percent Auto 4.6 % (2.6-8.5); Neutrophils Absolute Auto 4.2 K/mm3 (1.3-6.7); Neutrophils Percent Auto 74.1 % (45.5-73.1); Platelet Count Result 156 k/mm3 (150-375); Red Blood Count 3.06 M/mm3 (4.2-5.4); Red Cell Distribution Width 14.5 % (11.5-14.5); White Blood Count 5.7 K/mm3 (4.5-10.0)
[2021-10-16 08:26] LABS: Alanine Aminotransferase 8 U/L (6-35); Albumin Level 3.2 g/dL (3.5-5.1); Alkaline Phosphatase 67 U/L (38-126); Anion Gap 4 mmol/L (8-16); Aspartate Amino Transferase 31 U/L (14-36); Bilirubin,Total 0.3 mg/dL (0.2-1.3); Blood Urea Nitrogen 15 mg/dL (7-17); Calcium 8.1 mg/dL (8.4-10.2); Carbon Dioxide 25 mmol/L (22-30); Chloride 108 mmol/L (98-107); Estimated CRCL calculation 31 ml/min; Estimated Glomerular Filt Rate 48; Glucose 69 mg/dL (65-110); Magnesium 1.9 mg/dL (1.6-2.3); Potassium 3.5 mmol/L (3.4-5.0); Sodium 137 mmol/L (137-145)
[2021-10-16] MEDS: ENOXAPARIN 30 MG/0.3 ML SYRINGE SUB-Q (08:30)
[2021-10-16] MEDS: MEMANTINE 10 MG TABLET PO ×2 (08:31→17:00)
[2021-10-16] MEDS: ASPIRIN 81 MG ENTERIC TABLET PO (08:31)
[2021-10-16 08:32] LABS: Glucose Point of Care 96 mg/dl (65-105)
[2021-10-16] MEDS: DULoxetine HCL 30 MG CAPSULE.DR PO (08:32)
[2021-10-16] MEDS: SERTRALINE HCL 25 MG TABLET PO (08:32)
[2021-10-16] MEDS: ATORVASTATIN 40 MG TABLET PO (08:32)
[2021-10-16] MEDS: EUCERIN CREAM 120 GM JAR 1 APPLIC TOPICAL (08:40)
--- NOTE | 2021-10-16 10:32 | PM.IMPN ---
Progress Note: A&P Assessment and Plan (1) Acute UTI: Code(s): N39.0 - Urinary tract infection, site not specified Status: Acute Assessment and Plan: -UA positive for UTI -started on IV rocephin -Urine culture pending -no fevers or leukocytosis (2) Herpes zoster: Code(s): B02.9 - Zoster without complications Status: Acute Assessment and Plan: -rash to her forehead does appear to be herpes zoster. It does come close to her right eye but is not disseminated into her eye. -The rash is crusted and has been present for an unknown time. Patient's friend states the rash was not there 5-6 days ago and the patient is unable to tell how long it has been there. -started on acyclovir. 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 Pt feeling fine today. A/Ox2. Denies pain. Has no complaints currently. Further hx limited secondary to mental status. Review of Systems Review of Systems: ROS unobtainable: Yes unobtainable due to mental status Exam Narrative: Constitutional: Patient is well-nourished in no acute distress. Patient is alert and oriented x2 HEENT: Moist mucous membranes. No scleral icterus. Neck: Supple Lungs: Lung sounds are clear to auscultation bilaterally. No accessory muscle use. No rhonchi, rales, or wheezes noted. Cardiovascular: RRR, no murmur Abdomen: Soft, non tender, no rebound or guarding Extremities: No edema. Nontender. Skin: Patient does have a crusted rash noted to right forehead and hairline. Warm and dry. Skin is intact. Psychiatric: Confused Objective Data Vital Signs Vital Signs: Vital Signs - 24 hr 10/15/21 12:44 10/15/21 13:06 10/15/21 12:46 Temperature 97.5 F L 98.1 F Pulse Rate 92 98 95 Respiratory Rate 12 16 12 Blood Pressure 131/64 131/90 131/60 Pulse Oximetry 99 99 100 Oxygen Delivery Room Air Room Air 10/15/21 13:11 10/15/21 13:16 10/15/21 13:31 Temperature Pulse Rate 101 H 96 100 Respiratory Rate 16 12 13 Blood Pressure 131/90 132/64 126/82 Pulse Oximetry Oxygen Delivery 10/15/21 13:46 10/15/21 14:00 10/15/21 14:01 Temperature Pulse Rate 94 126 H 90 Respiratory Rate 14 12 13 Blood Pressure 139/92 H 141/102 H Pulse Oximetry Oxygen Delivery 10/15/21 14:16 10/15/21 14:31 10/15/21 15:15 Temperature Pulse Rate 99 120 H 90 Respiratory Rate 18 16 11 L Blood Pressure 145/94 H 136/64 Pulse Oximetry Oxygen Delivery 10/15/21 15:16 10/15/21 15:31 10/15/21 15:46 Temperature Pulse Rate 107 H 110 H 112 H Respiratory Rate 16 16 16 Blood Pressure 120/83 133/78 138/108 H Pulse Oximetry Oxygen Delivery 10/15/21 16:01 10/15/21 16:16 10/15/21 16:31 Temperature Pulse Rate 92 113 H 100 Respiratory Rate 12 17 14 Blood Pressure 150/89 H 146/110 H 142/65 H Pulse Oximetry Oxygen Delivery 10/15/21 16:45 10/15/21 16:46 10/15/21 17:00 Temperature Pulse Rate 117 H 108 H 113 H Respiratory Rate 15 19 16 Blood Pressure 152/126 H Pulse Oximetry Oxygen Delivery 10/15/21 17:01 10/15/21 17:02 10/15/21 17:15 Temperature Pulse Rate 98 121 H 128 H Respiratory Rate 15 22 H 19 Blood Pressure 126/91 H Pulse Oximetry Oxygen Delivery 10/15/21 17:16 10/15/21 17:30 07
[2021-10-16 12:03] LABS: Glucose Point of Care 73 mg/dl (65-105)
[2021-10-16 16:51] LABS: Glucose Point of Care 88 mg/dl (65-105)
[2021-10-16] MEDS: PANTOPRAZOLE 40 MG TABLET PO (20:20)
[2021-10-16 21:22] LABS: Glucose Point of Care 97 mg/dl (65-105)
[2021-10-17] VITALS (10 sets, daily range): BP systolic 145–150; BP diastolic 65–82; PULSE 67–129; RESP 16; TEMP 36.4–37.6; O2SAT 97–99; BMI 11.0
[2021-10-17 06:05] LABS: Eosinophils Absolute Auto 0.1 K/mm3 (0-0.3); Eosinophils Percent Auto 2.1 % (0-4.4); Hematocrit 28.3 % (37.0-47.0); Hemoglobin 9.4 g/dL (12.0-15.0); Immature Granulocyte Absolute 0.03 K/mm3 (0.00-0.031); Immature Granulocyte Percent A 0.6 % (0-0.5); Lymphocytes Absolute Auto 1.34 K/mm3 (0.9-3.2); Lymphocytes Percent Auto 27.6 % (18.3-44.2); Mean Corpuscular HGB Conc 33.2 g/dl (32-36); Mean Corpuscular Hemoglobin 31.3 pg (26-34); Mean Corpuscular Volume 94.3 fl (80-100); Mean Platelet Volume 9.3 fl (7.4-10.4); Monocytes Absolute Auto 0.3 K/mm3 (0.1-0.6); Monocytes Percent Auto 5.8 % (2.6-8.5); Neutrophils Absolute Auto 3.1 K/mm3 (1.3-6.7); Neutrophils Percent Auto 63.9 % (45.5-73.1); Platelet Count Result 158 k/mm3 (150-375); Red Cell Distribution Width 14.5 % (11.5-14.5); White Blood Count 4.9 K/mm3 (4.5-10.0)
[2021-10-17 06:18] LABS: Anion Gap 5 mmol/L (8-16); Blood Urea Nitrogen 10 mg/dL (7-17); Carbon Dioxide 22 mmol/L (22-30); Chloride 106 mmol/L (98-107); Estimated CRCL calculation 33 ml/min; Estimated Glomerular Filt Rate 54; Glucose 110 mg/dL (65-110); Potassium 3.5 mmol/L (3.4-5.0); Sodium 133 mmol/L (137-145)
[2021-10-17 07:50] LABS: Glucose Point of Care 120 mg/dl (65-105)
[2021-10-17] MEDS: ENOXAPARIN 30 MG/0.3 ML SYRINGE SUB-Q (08:33)
[2021-10-17] MEDS: MEMANTINE 10 MG TABLET PO ×2 (08:35→17:19)
[2021-10-17] MEDS: ATORVASTATIN 40 MG TABLET PO (08:35)
[2021-10-17] MEDS: ASPIRIN 81 MG ENTERIC TABLET PO (08:35)
[2021-10-17] MEDS: SERTRALINE HCL 25 MG TABLET PO (08:35)
[2021-10-17] MEDS: ACYCLOVIR 400 MG TABLET 800 MG PO ×5 (08:35→20:18)
[2021-10-17] MEDS: DULoxetine HCL 30 MG CAPSULE.DR PO (08:35)
--- NOTE | 2021-10-17 10:00 | ECG_ITS ---
Measurements Intervals [place] Rate: 78 P: UT: 0 QRS: -38 QRSD: 71 T: -50 QT: 468 QTc: 536 Interpretive Statements SINUS RHYTHM SUPRAVENTRICULAR BIGEMINY LEFT AXIS DEVIATION LOW QRS VOLTAGE IN DIFFUSE LEADS CANNOT RULE OUT SEPTAL INFARCT, AGE INDETERMINATE BORDERLINE ST-T WAVE ABNORMALITY- INF/HIGH LAT LEADS BASELINE ARTIFACT- I, II, III, AVR, AVL, AVF, V1-V6 ABNORMAL ECG Electronically Signed On 10-17-2021 17:16:08 CDT by Denton Franks D.O.
[2021-10-17 12:09] LABS: Glucose Point of Care 184 mg/dl (65-105)
--- NOTE | 2021-10-17 12:39 | PM.IMPN ---
Progress Note: A&P Assessment and Plan (1) Acute UTI: Code(s): N39.0 - Urinary tract infection, site not specified Status: Acute Assessment and Plan: -UA positive for UTI -started on IV rocephin -Urine culture pending -no fevers or leukocytosis (2) Herpes zoster: Code(s): B02.9 - Zoster without complications Status: Acute Assessment and Plan: -rash to her forehead does appear to be herpes zoster. It does come close to her right eye but is not disseminated into her eye. -The rash is crusted and has been present for an unknown time. Patient's friend states the rash was not there 5-6 days ago and the patient is unable to tell how long it has been there. -started on acyclovir. 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 Code(s): E11.65 - Type 2 diabetes mellitus with hyperglycemia Status: Acute Assessment and Plan: -accuchecks, hypoglycemic protocol, and low dose sliding scale -hold home dose of Lantus, glucose was 53 this AM (4) New onset a-fib: Code(s): I48.91 - Unspecified atrial fibrillation Status: Acute Assessment and Plan: -noted on EKG today -rate was in the 120s overnight, she was given one dose of PO Diltiazem which brought it down to high 90s for a few hours but she was up to 126 again by 0800 today -changed her Lovenox dosing from DVT prophylaxis to therapeutic -consulted cardiology, will defer to them for further rate management and choice of anticoagulation Subjective Date/time seen: 10/17/21 12:39 Interval history: 76 yo female w/ history of dementia, diabetes mellitus, chronic kidney disease, anemia, and CVA, admitted for AMS/UTI/shingles. Pt feeling fine today. A/Ox2. Denies pain. Has no complaints currently. Appears to be new onset afib on tele. Further hx limited secondary to mental status. Review of Systems Review of Systems: ROS unobtainable: Yes unobtainable due to mental status Exam Narrative: Constitutional: Patient is well-nourished in no acute distress. Patient is alert and oriented x2 HEENT: Moist mucous membranes. No scleral icterus. Neck: Supple Lungs: Lung sounds are clear to auscultation bilaterally. No accessory muscle use. No rhonchi, rales, or wheezes noted. Cardiovascular: tachycardic, irregular rate Abdomen: Soft, non tender, no rebound or guarding Extremities: No edema. Nontender. Skin: Patient does have a crusted rash noted to right forehead and hairline. Warm and dry. Skin is intact. Psychiatric: Confused Objective Data Vital Signs Vital Signs: Vital Signs - 24 hr 10/16/21 15:00 10/16/21 16:00 10/16/21 21:10 Temperature 98 F 97.8 F Pulse Rate 95 116 H 64 Respiratory Rate 18 14 Blood Pressure 142/67 H 156/60 H Pulse Oximetry 99 98 Oxygen Delivery 10/16/21 20:00 10/17/21 00:00 10/17/21 04:00 Temperature Pulse Rate 106 H 122 H 94 Respiratory Rate Blood Pressure Pulse Oximetry Oxygen Delivery 10/17/21 05:01 10/17/21 08:00 10/17/21 11:01 Temperature 98.1 F Pulse Rate 93 126 H Respiratory Rate 16 Blood Pressure 150/82 H Pulse Oximetry 97 Oxygen Delivery Room Air 10/17/21 11:01 10/17/21 12:00 Temperature Pulse Rate 115 H Respiratory Rate Blood Pressure Pulse Oximetry Oxygen Delivery Room Air Intake/Output Intake/Output: Intake & Output 10/14/21 10/15/21 10/16/21 10/17/21 23:59 23:59 23:59 23:59 Intake Total 2049 1130 250 Output Total 2019 1130 250 Meds/Results Medications: Active Medications Generic Name Dose Route Start Last Admin Trade Name Freq PRN Reason Stop Dose Admin Acetaminophen 650 mg 10/15/21
[2021-10-17 16:45] LABS: Glucose Point of Care 174 mg/dl (65-105)
[2021-10-17] MEDS: LORazepam (*CRX) 1 MG TABLET PO (17:19)
[2021-10-17] MEDS: ENOXAPARIN 60 MG/0.6 ML SYRINGE 50 MG SUB-Q (20:18)
[2021-10-17] MEDS: PANTOPRAZOLE 40 MG TABLET PO (20:18)
[2021-10-17 21:01] LABS: Glucose Point of Care 205 mg/dl (65-105)
[2021-10-18] VITALS (11 sets, daily range): BP systolic 119–148; BP diastolic 50–82; PULSE 68–113; RESP 16; TEMP 35.7–36.6; O2SAT 95–99
[2021-10-18] MEDS: dilTIAZem HCL 30 MG TABLET PO (01:42)
[2021-10-18 06:16] LABS: Basophils Percent Auto 0.2 % (0.2-1.2); Eosinophils Absolute Auto 0.1 K/mm3 (0-0.3); Eosinophils Percent Auto 1.2 % (0-4.4); Hematocrit 28.8 % (37.0-47.0); Hemoglobin 9.5 g/dL (12.0-15.0); Immature Granulocyte Absolute 0.03 K/mm3 (0.00-0.031); Immature Granulocyte Percent A 0.5 % (0-0.5); Lymphocytes Absolute Auto 1.93 K/mm3 (0.9-3.2); Mean Corpuscular Hemoglobin 30.8 pg (26-34); Mean Corpuscular Volume 93.5 fl (80-100); Mean Platelet Volume 9.2 fl (7.4-10.4); Monocytes Absolute Auto 0.3 K/mm3 (0.1-0.6); Monocytes Percent Auto 4.8 % (2.6-8.5); Neutrophils Absolute Auto 3.5 K/mm3 (1.3-6.7); Neutrophils Percent Auto 60.3 % (45.5-73.1); Platelet Count Result 154 k/mm3 (150-375); Red Blood Count 3.08 M/mm3 (4.2-5.4); Red Cell Distribution Width 14.4 % (11.5-14.5); White Blood Count 5.9 K/mm3 (4.5-10.0)
[2021-10-18 06:28] LABS: Anion Gap 7 mmol/L (8-16); Blood Urea Nitrogen 12 mg/dL (7-17); Calcium 8.4 mg/dL (8.4-10.2); Carbon Dioxide 23 mmol/L (22-30); Chloride 105 mmol/L (98-107); Estimated CRCL calculation 31 ml/min; Estimated Glomerular Filt Rate 48; Glucose 164 mg/dL (65-110); Potassium 3.6 mmol/L (3.4-5.0); Sodium 135 mmol/L (137-145)
[2021-10-18 07:55] LABS: Glucose Point of Care 179 mg/dl (65-105)
[2021-10-18] MEDS: MEMANTINE 10 MG TABLET PO ×2 (08:18→17:29)
[2021-10-18] MEDS: SERTRALINE HCL 25 MG TABLET PO (08:18)
[2021-10-18] MEDS: ATORVASTATIN 40 MG TABLET PO (08:18)
[2021-10-18] MEDS: ASPIRIN 81 MG ENTERIC TABLET PO (08:18)
[2021-10-18] MEDS: DULoxetine HCL 30 MG CAPSULE.DR PO (08:18)
[2021-10-18] MEDS: METOPROLOL TARTRATE 25 MG TABLET PO ×2 (08:18→20:07)
[2021-10-18] MEDS: APIXABAN 5 MG TABLET PO ×2 (08:18→20:08)
[2021-10-18] MEDS: ACYCLOVIR 400 MG TABLET 800 MG PO ×5 (08:18→20:07)
[2021-10-18 12:01] LABS: Glucose Point of Care 169 mg/dl (65-105)
--- NOTE | 2021-10-18 12:37 | PM.IMPN ---
Progress Note: A&P Assessment and Plan (1) Acute UTI: Code(s): N39.0 - Urinary tract infection, site not specified Status: Acute Assessment and Plan: -UA positive for UTI -started on IV rocephin -Urine culture positive for E. Coli sensitive to Rocephin -no fevers or leukocytosis (2) Herpes zoster: Code(s): B02.9 - Zoster without complications Status: Acute Assessment and Plan: -rash to her forehead does appear to be herpes zoster. It does come close to her right eye but is not disseminated into her eye. -The rash is crusted and has been present for an unknown time. Patient's friend states the rash was not there 5-6 days ago and the patient is unable to tell how long it has been there. -started on acyclovir. 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 Qualified Code(s): E11.65 - Type 2 diabetes mellitus with hyperglycemia; Z79.4 - [facility] (current) use of insulin Code(s): E11.65 - Type 2 diabetes mellitus with hyperglycemia Status: Acute Assessment and Plan: -accuchecks, hypoglycemic protocol, and low dose sliding scale -hold home dose of Lantus, glucose has been running on the low side in the AM (4) New onset a-fib: Code(s): I48.91 - Unspecified atrial fibrillation Status: Acute Assessment and Plan: -noted on EKG 10/17/21 -rate in the 120s, some improvement w/ diltiazem -consult cardiology -started Eliquis and Metoprolol 25 mg PO BID Subjective Date/time seen: 10/18/21 12:37 Interval history: 76 yo female w/ history of dementia, diabetes mellitus, chronic kidney disease, anemia, and CVA, admitted for AMS/UTI/shingles. Pt feeling fine today. A/Ox2. Denies pain. Has no complaints currently. Sleeping and does not want to open her eyes. Further hx limited secondary to mental status. Review of Systems Review of Systems: ROS unobtainable: Yes unobtainable due to mental status Exam Narrative: Constitutional: Patient is well-nourished in no acute distress. Patient is alert and oriented x2 HEENT: Moist mucous membranes. Neck: Supple Lungs: Lung sounds are clear to auscultation bilaterally. No accessory muscle use. No rhonchi, rales, or wheezes noted. Cardiovascular: tachycardic, irregular rate Abdomen: Soft, non tender, no rebound or guarding Extremities: No edema. Nontender. Skin: Patient does have a crusted rash noted to right forehead and hairline. Warm and dry. Skin is intact. Psychiatric: Confused Objective Data Vital Signs Vital Signs: Vital Signs - 24 hr 10/17/21 14:00 10/17/21 14:22 10/17/21 16:00 Temperature 99.6 F 98.4 F Pulse Rate 67 129 H Respiratory Rate 16 Blood Pressure 145/76 H Pulse Oximetry 98 Oxygen Delivery 10/17/21 19:20 10/17/21 20:00 10/17/21 20:00 Temperature 97.6 F Pulse Rate 112 H 110 H 110 H Respiratory Rate 16 16 Blood Pressure 146/65 H Pulse Oximetry 99 99 Oxygen Delivery Room Air 10/18/21 00:00 10/18/21 04:06 10/18/21 04:00 Temperature 97.8 F Pulse Rate 113 H 106 H 93 Respiratory Rate 16 Blood Pressure 148/74 H Pulse Oximetry 99 Oxygen Delivery 10/18/21 08:18 10/18/21 08:00 10/18/21 08:00 Temperature Pulse Rate 106 H 92 Respiratory Rate Blood Pressure Pulse Oximetry Oxygen Delivery Room Air 10/18/21 12:00 Temperature Pulse Rate 68 Respiratory Rate Blood Pressure Pulse Oximetry Oxygen Delivery Intake/Output Intake/Output: Intake & Output 10/15/21 10/16/21 10/17/21 10/18/21 23:59 23:59 23:59 23:59 Intake Total 2049 1130 770 120 Output Total 2019 1130 770 120 Meds/Results Medications: Active Medications Generic Name Dose Route Start Last Admin Trade Name Freq PRN Reason Stop Dose Admin Acetaminophen 650 mg 070
--- NOTE | 2021-10-18 13:12 | PM.CNCAR ---
Assessment and Plan Assessment and plan (1) New onset a-fib: Code(s): I48.91 - Unspecified atrial fibrillation Status: Acute Plan Paroxysmal AF in patient with hx of dementia and prior stroke and DM, currently in SR Plan D/C Aspirin Start eliquis 2.5 mg BID History of Present Illness History of Present Illness Consult date/time: 10/18/21 13:12 Reason For Visit: Herpes zoster, Irregular Rhythm, UTI Narrative: 74 Yrs old female presented to hospital with AMS. She had Hx of dementia and lives in Nursing facility with limited interactions. She is not communicating which is her baseline per friend who was present during visit. She was noted to have body aches in extended retirement and transferred to hospital. She was combative on arrival. She was noted to have UTI and admitted for antibiotic therapy and AMS. She also had shingles. During admission she noted to have AF with RVR yesterday and started on diltiazem and resolved overnight. She is sleepy this morning and not communicating. Review of Systems Review of Systems: ROS unobtainable: Yes unobtainable due to mental status PMFSH Past Medical History Medical History Anemia With history of blood transfusion with GI bleed in December 2018. Cerebrovascular accident Old infarcts in the right parietal and occipital lobe noted on brain CT on 09/29/2019. Chronic kidney disease, stage 3 Baseline creatinine is around 1.4 to 1.60. Dementia Depression Diabetic peripheral neuropathy GI bleed (~12/2018) Secondary to large duodenal ulcer. Insulin dependent type 2 diabetes mellitus Obstructive sleep apnea Patient states she no longer uses a CPAP. Surgical History Surgical History History of cataract extraction History of esophagogastroduodenoscopy (EGD) (12/2018) Family History Family History Father Acute myocardial infarction Hypertension Mother Acute myocardial infarction Sibling Congestive heart failure Hypertension Social History Social History Social History: The patient is a resident at [facility]. She never and has no children. 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 She is a former smoker but cannot provide me any further specifics. She smokes marijuana on occasion. She denies alcohol use. Smoking packs per day: 2 Smoking cigarettes per day: 40.0 Years smoked: 20 Smoking pack-years: 40.00 Smoking status: Never smoker Tobacco type: cigarettes Alcohol intake: never Drinks per week: 5 Substance use: never Substance use type: marijuana Last use: about a week ago Gender identity (if verbalized by the patient): Female Spiritual care concerns: No Meds Home Medications and Allergies Home Medications Medication Instructions Recorded Confirmed Type aspirin 81 mg tablet,delayed 81 mg PO DAILY 09/29/19 10/15/21 History release omeprazole 20 mg capsule,delayed 20 mg PO HS 09/29/19 10/15/21 History release duloxetine 30 mg capsule,delayed 30 mg PO DAILY 12/30/20 10/15/21 History release glucagon 1 mg solution for 1 mg IV PRN PRN Hypoglycemia 12/30/20 10/15/21 History injection (Glucagon Emergency Kit) insulin glargine 100 unit/mL 14 unit subcut QAM 01/08/21 10/15/21 History subcutaneous solution Tylenol 1,000 mg PO Q6H PRN general pain 10/15/21 10/15/21 History atorvastatin 40 mg tablet (Lipitor) 40 mg PO DAILY 10/15/21 10/15/21 History emollient combination no.114 See Rx Instructions .Route .COMPLEX 10/15/21 10/16/21 History (Eucerin Advanced Repair topical cream) insulin aspart U-100 100 unit/mL 10 unit subcut TID 10/15/21 10/15/21 History subcutaneous
[2021-10-18 16:54] LABS: Glucose Point of Care 158 mg/dl (65-105)
[2021-10-18] MEDS: PANTOPRAZOLE 40 MG TABLET PO (20:07)
[2021-10-18 21:08] LABS: Glucose Point of Care 152 mg/dl (65-105)
[2021-10-19] VITALS (11 sets, daily range): BP systolic 131–150; BP diastolic 72–94; PULSE 56–110; RESP 16–20; TEMP 36.6–37.2; O2SAT 96–100
--- NOTE | 2021-10-19 | ECHO_ITS ---
Patient Info Name: Kari Lopez Age: 76 years : 1945 Gender: Female Ht: 62 in Wt: 113 lbs BSA: 1.50 m2 HR: 62 bpm BP: 150 / 82 mmHg Heart Rhythm: Sinus Rhythm Technical Quality: Fair Exam Date: 10/19/2021 9:48 AM Exam Location: [facility] Card Pulmonary Patient Status: Inpatient Admit Date: 10/16/2021 Staff Ordering Physician: Imelda Booth PA-C Educational Technologist: Hellen Hoang RDCS Attending Provider: Latonya Landon Referring Physician: Leobardo KOHLI; Exam Type: CA echo doppler color flow Study Info Indications - afib new onset Complete two-dimensional, color flow and Doppler transthoracic echocardiogram is performed. Summary 1. Complete two-dimensional, color flow and Doppler transthoracic echocardiogram is performed. 2. Technically challenging exam which was incomplete because of patient's refusal to complete the examination. 3. Grossly normal left ventricular size and systolic function. 4. Mildly sclerotic appearing aortic valve. 5. No further diagnostic information could be obtained as patient was not cooperative with completing the exam. Left Ventricle Left ventricular chamber dimension is normal. Left ventricular systolic function is Empty, estimated at 50-55%. Right Ventricle Right ventricular chamber dimension is not well visualized. Left Atria Left atrial chamber dimension is mildly enlarged. Right Atria Right atrial chamber dimension is not well visualized. Aortic Valve The aortic valve is trileaflet. There is mild aortic valve sclerosis. Pulmonic Valve The pulmonic valve is not well visualized. Mitral Valve The mitral valve has normal leaflets. Tricuspid Valve The tricuspid valve leaflets are not well visualized. Pericardium/Pleural The pericardium appears normal. Aorta The aortic root size at the sinus of Valsalva is normal. Left Ventricular Outflow Tract Name Value Normal LVOT 2D LVOT Diameter 1.9 cm Pulmonic Valve Name Value Normal RVOT Doppler RVOT Peak Gradient 1 mmHg PV Doppler PV Peak Velocity 92 cm/s PV Peak Gradient 3 mmHg Tricuspid Valve Name Value Normal TV Regurgitation Doppler TR Peak Velocity 168 cm/s TR Peak Gradient 11 mmHg Estimated PAP/RSVP RA Pressure 10 mmHg <=5 PA Systolic Pressure 21 mmHg <36 RV Systolic Pressure 21 mmHg <36 Aorta
[2021-10-19 05:59] LABS: Basophils Percent Auto 0.2 % (0.2-1.2); Eosinophils Absolute Auto 0.1 K/mm3 (0-0.3); Hematocrit 28.7 % (37.0-47.0); Hemoglobin 9.3 g/dL (12.0-15.0); Immature Granulocyte Absolute 0.01 K/mm3 (0.00-0.031); Immature Granulocyte Percent A 0.2 % (0-0.5); Lymphocytes Absolute Auto 2.27 K/mm3 (0.9-3.2); Lymphocytes Percent Auto 41.7 % (18.3-44.2); Mean Corpuscular HGB Conc 32.4 g/dl (32-36); Mean Corpuscular Hemoglobin 30.9 pg (26-34); Mean Corpuscular Volume 95.3 fl (80-100); Mean Platelet Volume 9.5 fl (7.4-10.4); Monocytes Absolute Auto 0.3 K/mm3 (0.1-0.6); Monocytes Percent Auto 5.7 % (2.6-8.5); Neutrophils Absolute Auto 2.7 K/mm3 (1.3-6.7); Neutrophils Percent Auto 50.2 % (45.5-73.1); Platelet Count Result 175 k/mm3 (150-375); Red Blood Count 3.01 M/mm3 (4.2-5.4); Red Cell Distribution Width 14.5 % (11.5-14.5); White Blood Count 5.4 K/mm3 (4.5-10.0)
[2021-10-19 06:12] LABS: Anion Gap 8 mmol/L (8-16); Blood Urea Nitrogen 14 mg/dL (7-17); Calcium 8.1 mg/dL (8.4-10.2); Carbon Dioxide 21 mmol/L (22-30); Chloride 106 mmol/L (98-107); Estimated CRCL calculation 33 ml/min; Estimated Glomerular Filt Rate 54; Glucose 115 mg/dL (65-110); Potassium 3.4 mmol/L (3.4-5.0); Sodium 135 mmol/L (137-145)
[2021-10-19 07:35] LABS: Glucose Point of Care 122 mg/dl (65-105)
[2021-10-19] MEDS: ATORVASTATIN 40 MG TABLET PO (09:02)
[2021-10-19] MEDS: METOPROLOL TARTRATE 25 MG TABLET PO ×2 (09:02→20:27)
[2021-10-19] MEDS: ACYCLOVIR 400 MG TABLET 800 MG PO ×5 (09:02→20:27)
[2021-10-19] MEDS: APIXABAN 5 MG TABLET PO ×2 (09:03→20:27)
[2021-10-19] MEDS: SERTRALINE HCL 25 MG TABLET PO (09:03)
[2021-10-19] MEDS: MEMANTINE 10 MG TABLET PO ×2 (09:03→16:18)
[2021-10-19] MEDS: DULoxetine HCL 30 MG CAPSULE.DR PO (09:03)
[2021-10-19 11:37] LABS: Glucose Point of Care 165 mg/dl (65-105)
[2021-10-19] MEDS: EUCERIN CREAM 120 GM JAR 1 APPLIC TOPICAL (12:27)
--- NOTE | 2021-10-19 12:34 | PM.PNCARD ---
Progress Note: A&P Assessment and Plan (1) New onset a-fib: Code(s): I48.91 - Unspecified atrial fibrillation Status: Acute Plan 76-year-old lady admitted to the hospital because of generalized body aches and herpes zoster. Reason to justify hospitalization is not entirely clear to me. While she was hospitalized she was placed on telemetry and has been found to have paroxysmal AFib with which she appears to be asymptomatic. Currently maintaining sinus rhythm. Apixaban has appropriately been started for systemic anticoagulation. At this point no additional cardiac recommendations. Echocardiogram was attempted this morning apparently she was not able to cooperate with the exam. Gary Craig MD [facility] Subjective Date/time seen: Date of service:10/19/21 12:34 Interval history: Follow-up visit in this 76-year-old woman with: Paroxysmal asymptomatic atrial fibrillation. Patient was hospitalized for noncardiac reasons. The patient is comfortable and denies any cardiovascular complaints at this time. Currently in sinus rhythm heart rate in the 60s. Systemic anticoagulation started yesterday. Exam Const: General: comfortable and no acute distress Other: Elderly frail lady somewhat contracted is able to give a reasonable history today. HENMT: Mouth: Yes moist mucous membranes Eyes: Sclera: sclerae normal Neck: Neck: supple and no JVD Other: Carotid pulses are intact bilaterally Resp: Effort & Inspection: normal respiratory effort Other: essentially clear breath sounds bilaterally Cardio: Rate: regular rate Rhythm: regular rhythm Other: very soft systolic murmur that does not seem to radiate from the left sternal border GI: GI Palp: Yes Soft to palpation Auscultation: normal bowel sounds Skin: General skin exam: normal color Extrem: Other: no edema, adequate distal pulses Objective Data Vital Signs Vital Signs: Vital Signs - 24 hr 10/18/21 15:30 10/18/21 16:00 10/18/21 19:16 Temperature 35.7 C L 36.3 C L Pulse Rate 75 72 76 Respiratory Rate 16 16 Blood Pressure 147/50 H 119/82 Pulse Oximetry 99 95 Oxygen Delivery 10/18/21 20:07 10/18/21 20:00 10/18/21 20:00 Temperature Pulse Rate 96 81 96 Respiratory Rate 16 Blood Pressure Pulse Oximetry 95 Oxygen Delivery Room Air 10/19/21 00:00 10/19/21 04:37 10/19/21 04:00 Temperature 36.6 C Pulse Rate 57 L 62 64 Respiratory Rate 16 Blood Pressure 150/82 H Pulse Oximetry 96 Oxygen Delivery 10/19/21 09:02 10/19/21 09:15 10/19/21 09:15 Temperature Pulse Rate 64 97 Respiratory Rate Blood Pressure Pulse Oximetry Oxygen Delivery Room Air 10/19/21 12:00 Temperature Pulse Rate 56 L Respiratory Rate Blood Pressure Pulse Oximetry Oxygen Delivery Intake/Output Intake/Output: Intake & Output 10/16/21 10/17/21 10/18/21 10/19/21 23:59 23:59 23:59 23:59 Intake Total 1130 770 710 20 Balance 1130 770 710 20 Meds/Results Medications: Active Medications Generic Name Dose Route Start Last Admin Trade Name Freq PRN Reason Stop Dose Admin Acetaminophen 650 mg 10/15/21 19:57 Acetaminophen 325 Mg Tablet PO Q6H PRN Mild Pain (1-3) or Fever Hydrocodone Bitart/Acetaminophen 1 tab 10/15/21 18:32 Hydrocodone/Acetaminophen (*Crx) 5-325 Mg Tablet PO Q4H PRN Pain Rated 4-6 Acyclovir 800 mg 10/15/21 21:00 10/19/21 12:25 Acyclovir 400 Mg Tablet PO 800 mg 5 TIMES DAILY DANDRE Administration Apixaban 5 mg 10/18/21 09:00 10/19/21 09:03 Apixaban 5 Mg Tablet PO 5 mg Q12HR DANDRE Administration Atorvastatin Calcium 40 mg 10/16/21 09:00 10/19/21 09:02 Atorvastatin 40 Mg Tablet PO 40 mg DAILY DANDRE Administration Dextrose 12.5 gm 10/15/21 19:57 Dextrose 50% 25 Gm/50 Ml Syringe IV PUSH PRN PRN Hypoglycemia Protocol Duloxetine HCl 30 mg 10/16/21 09:00 10/19/21 09:03
--- NOTE | 2021-10-19 13:10 | PM.IMPN ---
Progress Note: A&P Assessment and Plan (1) Acute UTI: Code(s): N39.0 - Urinary tract infection, site not specified Status: Acute Assessment and Plan: -UA positive for UTI -started on IV rocephin -Urine culture positive for E. Coli sensitive to Rocephin, will be continued at this time. -no fevers or leukocytosis (2) Herpes zoster: Code(s): B02.9 - Zoster without complications Status: Acute Assessment and Plan: -rash to her forehead does appear to be herpes zoster. It does come close to her left eye but is not disseminated into her eye. -The rash is crusted and has been present for an unknown time. Patient's friend states the rash was not there 5-6 days ago and the patient is unable to tell how long it has been there. -Will continue acyclovir. -has no complaints of pain today. (3) Type 2 diabetes mellitus with hyperglycemia: Qualifiers: Diabetes mellitus intermediate project manager insulin use: with intermediate project manager use Qualified Code(s): E11.65 - Type 2 diabetes mellitus with hyperglycemia; Z79.4 - terminal operations supervisor (current) use of insulin Code(s): E11.65 - Type 2 diabetes mellitus with hyperglycemia Status: Acute Assessment and Plan: -accuchecks, hypoglycemic protocol, and low dose sliding scale -hold home dose of Lantus, glucose has been running on the low side in the AM - Fasting glucose is stable at 115 this AM. No changes to insulin regimen. (4) New onset a-fib: Code(s): I48.91 - Unspecified atrial fibrillation Status: Acute Assessment and Plan: -noted on EKG 10/17/21 -rate in the 120s, some improvement w/ diltiazem -Cardiology consulted and no new recommendations are made. Agree with continued Eliquis. - Unable to perform ECHO as pt. will not allow it to be done. -started Eliquis and Metoprolol 25 mg PO BID Subjective Date/time seen: 10/19/21 0810 This pt. was examined at the bedside in interval assessment after being admitted for a Herpes Zoster outbreak and generalized weakness and while here she was found to be in new onset Atrial Fibrillation. She was started on Apixaban and has done well with it. There was an attempt to obtain an ECHO today with no avail as pt would not cooperate for the test. Cardiology has consulted and they have no further recommendations for this patient at this time. Her only barrier to discharge at this time is the need for SNF placement. She does not appear to be in any acute distress at this time and has not had any new complaints. Review of Systems Review of Systems: ROS unobtainable: Yes unobtainable due to mental status Exam Narrative: Constitutional: Patient is well-nourished in no acute distress. Patient is alert and oriented x2 HEENT: Moist mucous membranes. Neck: Supple Lungs: Lung sounds are clear to auscultation bilaterally. No accessory muscle use. No rhonchi, rales, or wheezes noted. Cardiovascular: tachycardic, irregular rate Abdomen: Soft, non tender, no rebound or guarding Extremities: No edema. Nontender. Skin: Patient does have a crusted rash noted to left face around the eye, the forehead and hairline. Warm and dry. Skin is intact. Psychiatric: Confused Objective Data Vital Signs Vital Signs: Vital Signs - 24 hr 10/18/21 15:30 10/18/21 16:00 10/18/21 19:16 Temperature 96.2 F L 97.3 F L Pulse Rate 75 72 76 Respiratory Rate 16 16 Blood Pressure 147/50 H 119/82 Pulse Oximetry 99 95 Oxygen Delivery 10/18/21 20:07 10/18/21 20:00 10/18/21 20:00 Temperature Pulse Rate 96 81 96 Respiratory Rate 16 Blood Pressure Pulse Oximetry 95 Oxygen Delivery Room Air 10/19/21 00:00 10/19/21 04:37 10/19/21 04:00 Temperature 97.8 F Pulse Rate 57 L 62 64 Respiratory Rate 16 Blood Pressure 150/82 H Pulse Oximetry 96 Oxygen Delivery 10/19/21 09:02 10/19/21 09:15 10/19/21 09:15 Temperature Pulse Rate 64 97 Respiratory Rate Blood P
[2021-10-19 16:22] LABS: Glucose Point of Care 160 mg/dl (65-105)
[2021-10-19 20:16] LABS: Glucose Point of Care 213 mg/dl (65-105)
[2021-10-19] MEDS: PANTOPRAZOLE 40 MG TABLET PO (20:27)
[2021-10-20] VITALS (7 sets, daily range): BP systolic 128–150; BP diastolic 88; PULSE 56–103; RESP 16–20; TEMP 37–37.1; O2SAT 97–99
[2021-10-20 06:27] LABS: Basophils Percent Auto 0.2 % (0.2-1.2); Eosinophils Absolute Auto 0.1 K/mm3 (0-0.3); Eosinophils Percent Auto 1.3 % (0-4.4); Hemoglobin 9.6 g/dL (12.0-15.0); Immature Granulocyte Absolute 0.03 K/mm3 (0.00-0.031); Immature Granulocyte Percent A 0.6 % (0-0.5); Lymphocytes Absolute Auto 2.39 K/mm3 (0.9-3.2); Lymphocytes Percent Auto 44.2 % (18.3-44.2); Mean Corpuscular HGB Conc 33.1 g/dl (32-36); Mean Corpuscular Volume 93.5 fl (80-100); Mean Platelet Volume 8.9 fl (7.4-10.4); Monocytes Absolute Auto 0.3 K/mm3 (0.1-0.6); Monocytes Percent Auto 5.9 % (2.6-8.5); Neutrophils Absolute Auto 2.6 K/mm3 (1.3-6.7); Neutrophils Percent Auto 47.8 % (45.5-73.1); Platelet Count Result 171 k/mm3 (150-375); Red Cell Distribution Width 14.3 % (11.5-14.5); White Blood Count 5.4 K/mm3 (4.5-10.0)
[2021-10-20 06:52] LABS: Alanine Aminotransferase 9 U/L (6-35); Albumin Level 3.2 g/dL (3.5-5.1); Alkaline Phosphatase 60 U/L (38-126); Anion Gap 4 mmol/L (8-16); Aspartate Amino Transferase 31 U/L (14-36); Bilirubin,Total 0.2 mg/dL (0.2-1.3); Blood Urea Nitrogen 12 mg/dL (7-17); Calcium 8.2 mg/dL (8.4-10.2); Carbon Dioxide 27 mmol/L (22-30); Chloride 103 mmol/L (98-107); Estimated CRCL calculation 33 ml/min; Estimated Glomerular Filt Rate 54; Glucose 156 mg/dL (65-110); Magnesium 1.9 mg/dL (1.6-2.3); Potassium 3.4 mmol/L (3.4-5.0); Sodium 134 mmol/L (137-145)
--- NOTE | 2021-10-20 06:57 | PM.PNCARD ---
Progress Note: A&P Assessment and Plan (1) New onset a-fib: Code(s): I48.91 - Unspecified atrial fibrillation Status: Acute Plan 76-year-old lady with asymptomatic paroxysmal atrial fibrillation. Current regimen which consists of low-dose of metoprolol and apixaban should be continued. No additional cardiac recommendations at this time. Disposition per the primary team. Apparently plans are to discharge to alf facility Gary Craig MD [facility] Subjective Date/time seen: date of service:10/20/21 06:57 Interval history: Follow-up visit in this 76-year-old woman with: paroxysmal atrial fibrillation being treated with apixaban for anticoagulation As well as low dose of Metoprolol. Patient is comfortable offers no cardiovascular complaints this morning. Rhythm is sinus with frequent atrial ectopic activity, not atrial fibrillation at this time. Exam Const: General: comfortable and no acute distress Other: Chronically ill-appearing elderly lady no distress HENMT: Mouth: Yes moist mucous membranes Eyes: Sclera: sclerae normal Neck: Neck: supple and no JVD Resp: Effort & Inspection: normal respiratory effort Cardio: Rate: regular rate Rhythm: regular rhythm Other: frequent extrasystoles GI: GI Palp: Yes Soft to palpation Auscultation: normal bowel sounds Skin: General skin exam: normal color Extrem: General: normal to inspection Objective Data Vital Signs Vital Signs: Vital Signs - 24 hr 10/19/21 09:02 10/19/21 09:15 10/19/21 09:15 Temperature Pulse Rate 64 97 Respiratory Rate Blood Pressure Pulse Oximetry Oxygen Delivery Room Air 10/19/21 12:00 10/19/21 14:00 10/19/21 16:00 Temperature 36.6 C Pulse Rate 56 L 67 73 Respiratory Rate 20 Blood Pressure 148/72 H Pulse Oximetry 100 Oxygen Delivery 10/19/21 20:00 10/19/21 20:27 10/19/21 20:00 Temperature Pulse Rate 110 H 100 100 Respiratory Rate 20 Blood Pressure Pulse Oximetry 100 Oxygen Delivery Room Air 10/19/21 21:25 10/20/21 00:00 10/20/21 04:00 Temperature 37.2 C Pulse Rate 100 90 103 H Respiratory Rate 16 Blood Pressure 131/94 H Pulse Oximetry 97 Oxygen Delivery 10/20/21 06:00 Temperature 37.1 C Pulse Rate 88 Respiratory Rate 16 Blood Pressure 128/88 Pulse Oximetry 97 Oxygen Delivery Intake/Output Intake/Output: Intake & Output 10/17/21 10/18/21 10/19/21 10/20/21 23:59 23:59 23:59 23:59 Intake Total 770 710 342 Balance 770 710 342 Meds/Results Medications: Active Medications Generic Name Dose Route Start Last Admin Trade Name Freq PRN Reason Stop Dose Admin Acetaminophen 650 mg 10/15/21 19:57 Acetaminophen 325 Mg Tablet PO Q6H PRN Mild Pain (1-3) or Fever Hydrocodone Bitart/Acetaminophen 1 tab 10/15/21 18:32 Hydrocodone/Acetaminophen (*Crx) 5-325 Mg Tablet PO Q4H PRN Pain Rated 4-6 Acyclovir 800 mg 10/15/21 21:00 10/19/21 20:27 Acyclovir 400 Mg Tablet PO 800 mg 5 TIMES DAILY DANDRE Administration Apixaban 5 mg 10/18/21 09:00 10/19/21 20:27 Apixaban 5 Mg Tablet PO 5 mg Q12HR DANDRE Administration Atorvastatin Calcium 40 mg 10/16/21 09:00 10/19/21 09:02 Atorvastatin 40 Mg Tablet PO 40 mg DAILY DANDRE Administration Dextrose 12.5 gm 10/15/21 19:57 Dextrose 50% 25 Gm/50 Ml Syringe IV PUSH PRN PRN Hypoglycemia Protocol Duloxetine HCl 30 mg 10/16/21 09:00 10/19/21 09:03 Duloxetine Hcl 30 Mg Capsule.Dr PO 30 mg DAILY DANDRE Administration Glucagon 1 mg 10/15/21 19:57 Glucagon For Inj 1 Mg Vial IM PRN PRN Hypoglycemia Protocol Glucose 15 gm 10/15/21 19:57 Glucose Oral Gel 15 Gm Of Glucse In 37.5 Gm Tube PO PRN PRN Hypoglycemia Protocol Ceftriaxone Sodium/Dextrose 1 gm in 50 mls @ 100 mls/hr 10/16/21 18:00 10/19/21 17:50 Rocephin 1 Gm/D5w 50 Ml IVPB Infused
[2021-10-20 07:39] LABS: Glucose Point of Care 165 mg/dl (65-105)
[2021-10-20] MEDS: METOPROLOL TARTRATE 25 MG TABLET PO (09:22)
[2021-10-20] MEDS: ATORVASTATIN 40 MG TABLET PO (09:22)
[2021-10-20] MEDS: APIXABAN 5 MG TABLET PO (09:22)
[2021-10-20] MEDS: DULoxetine HCL 30 MG CAPSULE.DR PO (09:22)
[2021-10-20] MEDS: ACYCLOVIR 400 MG TABLET 800 MG PO ×3 (09:23→16:36)
[2021-10-20] MEDS: MEMANTINE 10 MG TABLET PO ×2 (09:23→16:36)
[2021-10-20] MEDS: SERTRALINE HCL 25 MG TABLET PO (09:23)
[2021-10-20 11:37] LABS: Glucose Point of Care 189 mg/dl (65-105)
[2021-10-20] MEDS: EUCERIN CREAM 120 GM JAR 1 APPLIC TOPICAL (12:22)
[2021-10-20 13:40] LABS: Hemoglobin A1C 6.9 % (<5.7)
--- NOTE | 2021-10-20 14:28 | PM.DS ---
DS: Admitting Diagnosis Discharge Date 10/20/2021 Admitting Diagnosis UTI DS: Discharge Diagnosis Discharge Diagnosis (1) Acute UTI: Code(s): N39.0 - Urinary tract infection, site not specified Status: Acute Assessment and Plan: Urine culture with growth of >100k E coli -treated with IV ceftriaxone during admission -will continue p.o. cefdinir to complete 7 days of antibiotic therapy (2) Herpes zoster: Code(s): B02.9 - Zoster without complications Status: Acute Assessment and Plan: Patient had shingles rash on the left anterior forehead. 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: with bed bug exterminator use Qualified Code(s): E11.65 - Type 2 diabetes mellitus with hyperglycemia; Z79.4 - halfway (current) use of insulin Code(s): E11.65 - Type 2 diabetes mellitus with hyperglycemia Status: Acute Assessment and Plan: Patient had hypoglycemia during admission -home Lantus and mealtime insulin was held -blood sugars were stable off of her home insulin -A1c is 6.9 -instructions to long term staff to monitor blood sugars ACHS and implement sliding-scale insulin as well as hypoglycemic protocol (4) New onset a-fib: Code(s): I48.91 - Unspecified atrial fibrillation Status: Acute Assessment and Plan: Noted on EKG 10/17/21 -rapid ventricular response with heart rate in the 120s. This improved with addition of diltiazem -she was seen in consultation by Cardiology -echocardiogram was attempted however patient was agitated with this and it was not completed -started on Eliquis 5 mg q12. -started on metoprolol 25 mg q12h (5) Dementia: Qualifiers: Dementia type: unspecified type Dementia behavioral disturbance: without behavioral disturbance Qualified Code(s): F03.90 - Unspecified dementia without behavioral disturbance Code(s): F03.90 - Unspecified dementia without behavioral disturbance Status: Acute Assessment and Plan: At baseline -continue memantine DS: Summary Hospital Course Hospital Course: Date of admission: 10/15/2021 Date of discharge: 10/20/2021 Kari Lopez is a 76-year-old female with history of CVA, dementia, anemia, type 2 diabetes mellitus who presented to the emergency department from her long term on 10/15/2021 with complaints of weakness and increased confusion as well as a rash on her face. Her friend who was visiting noted that the rash was not present when she saw her last 5 days ago. On presentation, urinalysis was abnormal, CXR with no acute findings. She was admitted to the hospitalist service and seen in consultation by Cardiology. Treated with IV antibiotics for UTI and will continue taking antibiotics to complete full course. Started on appropriate anticoagulation and rate controlling therapy for new onset atrial fibrillation. Will continue antivirals for herpes zoster. Patient with overall improvement during admission and was determined to no longer require inpatient care. Discharged in hemodynamically stable condition on 10/20/2021 to her nursing facility. Time Spent with Patient Time attestation: Total time spent providing and/or coordinating discharge services: 48 minutes Time spent: Greater than 30 minutes Exam Narrative: General: Frail, chronically ill-appearing 76-year-old female, sitting up in bed, comfortable, NARD Neuro: awake, alert and oriented to self only, speech clear, no focal neuro deficits noted HEENMT: normocephalic, atraumatic, EOMI, sclerae anicteric, no conjunctival erythema or injection Respiratory: clear to auscultation bilaterally, nonlabored breathing Cardio: regular rate, regular rhythm with S1-S2 Abdomen: nondist
[2021-10-20 16:43] LABS: Glucose Point of Care 196 mg/dl (65-105)
[2021-10-20 16:59] LABS: EDCOVIDSCREEN Negative (Negative)
== END 2021-10-20 18:15 | DRG 690 ==
LOC: ANHED 18:16 → ANH3MED 20:22
PROVIDERS: Nurse Practitioner Adult Health; Physician Assistant; Admitting Provider Chiropractor; Emergency Provider Emergency Medicine; PCP Internal Medicine; Visit Provider Family Medicine
DX: N39.0 Urinary tract infection, site not specified (principal); B96.20 Unspecified Escherichia coli [E. coli] as the cause of diseases classified elsewhere; E11.22 Type 2 diabetes mellitus with diabetic chronic kidney disease; N18.30 Chronic kidney disease, stage 3 unspecified; B02.9 Zoster without complications; E11.65 Type 2 diabetes mellitus with hyperglycemia; F03.90 Unspecified dementia, unspecified severity, without behavioral disturbance, psychotic disturbance, mood disturbance, and anxiety; I48.0 Paroxysmal atrial fibrillation; D64.9 Anemia, unspecified; E11.42 Type 2 diabetes mellitus with diabetic polyneuropathy; G47.33 Obstructive sleep apnea (adult) (pediatric); Z20.822 Contact with and (suspected) exposure to COVID-19; Z79.4 Long term (current) use of insulin; Z86.73 Personal history of transient ischemic attack (TIA), and cerebral infarction without residual deficits; Z98.49 Cataract extraction status, unspecified eye; Z87.891 Personal history of nicotine dependence
CPT/HCPCS: 36415; 51701; 71045; 80048; 80053; 81001; 82948; 83036; 83735; 85025; 87077; 87086; 87088; 87186; 87426; 93005; 93306; 96361; 96365; 96372; 96375; 97162; 97166; 99285; A9270; C9803; G0378; J0696; J1200; J1650; J2405; J7030